=== PATIENT | female | born 1975 | race Caucasian/White ===

== ENCOUNTER 2023-12-20 10:34 | Outpatient (POV) | payer BC, SELFPAY ==
[2023-12-20 10:46] VITALS: BP 138/76; PULSE 123; RESP 18; O2SAT 99; BMI 31.6
--- NOTE | 2023-12-20 10:48 | EXP.PAIN.OV ---
HPI Data of Consult Patient: new to practice Consult date: 12/20/23 Requesting Physician: Radha Castellano APRN Consult Narrative Reason for consult: Low back pain, bilateral hip pain, buttocks pain, mid back pain History of present illness: Ms. Gonzales is a 48 year old female who presents today as a new patient. She is a referral from Derick Myers's office. Today she rates her pain an 8 out of 10. Patient states that all of a sudden in June she was walking when she started to experience worsening low back and bilateral leg pain. She does describe it as a dull aching, throbbing with burning and stinging sensations. She does state it interferes with her ability perform activities of daily living such as cooking and cleaning. Patient states initially she could not sit, stand or walk due to the worsening pain. Patient does state that the leg symptoms did somewhat improve and now the pain is more at her low back and hips and buttocks area. Patient does state that it is fairly constant and gets worse with any increased activity. Patient states that she did go and have imaging done and was referred to Dr. Myers's office. She does state that he was recommending conservative treatment such as injections. Patient denies any prior surgery or physical therapy. Patient does state that she had had some sort of injection in the past but unsure what specifically it was. Patient has tried [id number] medications along with heat and ice and topicals with minimal relief. Patient is currently managed with tramadol and Flexeril and does state that this does take the edge off. Patient does also make mention that occasionally she will have pain between her shoulder blades but it is not always constant. She states this pain will feel like rippling and when that occurs it does make the overall low back and hip pain worse. Patient is interested in any help we may be able to provide.Patient is currently managed with tramadol 50 mg Epifanio has been reviewed and is appropriate. CC: Radha Castellano APRN [facility] Disclaimer: The information contained in this section may have been updated after the patient was seen, as this information can be updated by other users. Medical History (Updated 12/20/23 @ 11:21 by Radha Castellano APRN) HTN (hypertension) GERD (gastroesophageal reflux disease) Fibromyalgia Surgical History (Updated 12/20/23 @ 11:15 by Sania Soriano RN) History of knee replacement procedure of left knee Hx of cholecystectomy H/O: hysterectomy Hx of tonsillectomy Family History (Updated 12/20/23 @ 10:49 by Sania Soriano RN) Other Cancer Hypertension Seizures Social History Smoking Status: Never smoker alcohol intake: never current occupational status: other Travel in the last 8 weeks: None Review of Systems Review of Systems Review of systems:: pertinent systems reviewed and negative unless documented below Review of systems (narrative): Review of Systems: General: No recent weight changes, no fever, no sleep disturbances Respiratory: No cough, no shortness of air, no recurring pulmonary infections Cardiovascular/peripheral vascular: No chest pain, no palpitations, no edema, no shortness of breath Gastrointestinal: No new onset incontinence, normal bowel movements reported Genitourinary: No new onset incontinence Musculoskeletal: Low back pain, bilateral hip pain, buttocks pain Psychiatric: [Normal mood/affect] Neurological: [Denies weakness in extremities], [denies balance issues] Meds Home Medications and Allergies Home Medications ?Medication ?Instructions ?Recorded ?Confirmed ?Type cyclobenzaprine 10 mg tablet 10 mg PO QIDP PRN . 12/20/23 12/20/23 History esomeprazole magnesium 40 mg 40 mg PO BID GERD 12/20/23 12/20/23 History capsule,delayed release famotidine 20 mg tablet 20 mg PO BID GERD 12/20/23 12/20/23 History hydrochlorothiazide 25 mg tablet 25 mg PO DAILYP PRN Fluid 12/20/23 12/20/23 History hydroxyzine HCl 25 mg tablet 25 mg PO HSP PRN Sleep 12/20/23 12/20/23 History loratadine 10 mg tablet 10 mg PO DAILYP PRN ALLERGIES 12/20/23 12/20/23 History losartan 50 mg tablet 50 mg PO BID BLOOD PRESSURE 12/20/23 12/20/23 History metoclopramide HCl 10 mg tablet 10 mg PO Q6H GERD 12/20/23 12/20/23 History metoprolol succinate 100 mg 100 mg PO DAILY BLOOD PRESSURE 12/20/23 12/20/23 History tablet,extended release 24 hr sertraline 50 mg tablet 50 mg PO DAILY MOOD 12/20/23 12/20/23 History tramadol 50 mg tablet 50 mg PO QIDP PRN Pain 12/20/23 12/20/23 History New Prescriptions to Start Prescriptions: Allergies Allergy/AdvReac Type Severity Reaction Status Date / Time acetaminophen AdvReac Verified 12/20/23 11:09 albuterol AdvReac Verified 12/20/23 11:09 fentanyl AdvReac Verified 12/20/23 11:09 hydrocodone AdvReac Verified 12/20/23 11:09 meperidine AdvReac Verified 12/20/23 11:09 morphine AdvReac Verified 12/20/23 11:09 oxycodone AdvReac Verified 12/20/23 11:09 Sulfa (Sulfonamide AdvReac Verified 12/20/23 11:09 Antibiotics) Objective Narrative: Physical Exam: General: Alert and oriented x3, no acute distress, pleasant and cooperative Lungs: Respirations even and unlabored, symmetrical chest expansion Eyes: PERRL Musculoskeletal: Flexion and extension of lumbar [spine] somewhat guarded secondary to pain, [antalgic gait noted] point tenderness along bilateral SIs and bilateral greater trochanteric bursa's with positive bilateral Christiano's, Hermelindo's, Gaenslen's, compression and distraction exam Neurological: Speech clear, no gross sensory deficit Additional findings Additional findings: Lumbar MRI without contrast 06/26/2023 findings: Multiplanar MR imaging of the lumbar spine was performed without contrast. On the sagittal T2 weighted images there is normal curvature and alignment. No acute subluxation or fracture. The conus terminates at the T12-L1. There is disc desiccation and disc space narrowing at L4-L5 and L5-S1. There is high signal in the posterior central annulus at L5-S1 consistent with annular fissure. L1-L2: There is mild annular disc bulging asymmetric to the left. There is mild left neuroforaminal narrowing. L2-L3: There is annular disc bulge asymmetric to the left. There is mild inferior left neuroforaminal narrowing. L3-L4: Mild to moderate annular disc bulge with bilateral neuroforaminal narrowing. L4-L5: There is a moderate annular disc bulge. Facet hypertrophy. Moderate right and severe left neuroforaminal narrowing. There is compression of the exiting nerve root on the left. L5-S1 there is moderate annular disc bulge asymmetric to the left. Moderate right and severe left neuroforaminal narrowing. There is compression of the left exiting nerve root. Assessment and Plan *Assessment and plan (1) Degenerative disc disease, lumbar: Status: Acute Category: Medical Code(s): M51.36 - Other intervertebral disc degeneration, lumbar region (2) Lumbar radiculopathy: Status: Acute Category: Medical Code(s): M54.16 - Radiculopathy, lumbar region (3) Lumbar spinal stenosis: Status: Acute Qualifiers: Neurogenic claudication status: unspecified Qualified Code(s): M48.061 - Spinal stenosis, lumbar region without neurogenic claudication Category: Medical Code(s): M48.061 - Spinal stenosis, lumbar region without neurogenic claudication (4) Lumbar nerve root impingement: Status: Acute Category: Medical Code(s): M54.16 - Radiculopathy, lumbar region (5) Bilateral sacroiliitis: Status: Acute Category: Medical Code(s): M46.1 - Sacroiliitis, not elsewhere classified (6) Greater trochanteric bursitis of both hips: Status: Acute Category: Medical Code(s): M70.61 - Trochanteric bursitis, right hip; M70.62 - Trochanteric bursitis, left hip Plan Patient continues to experience significant pain throughout her low back hips and buttocks with burning and stinging. Patient did have limited range of motion of her lumbar spine with extreme point tenderness along her bilateral SIs and bilateral greater trochanteric bursa's. Patient did have a positive bilateral Christiano's, Hermelindo's, Gaenslen's, compression and distraction exam. I did discuss with the patient that I do believe she would benefit from bilateral SI injections and bursa injections in the future. Risk and benefits were discussed with the patient and she would like to proceed forward with this plan of care. Patient has tried and failed conservative therapy including oral medications, heat and ice, topicals, at home stretching exercise for longer than 6 weeks with no additional changes. Patient is not a surgical candidate at this time. We will submit to insurance for the bilateral SI injections under fluoroscopy. Patient has been instructed to contact the clinic with any concerns before the next appointment. Dr. Jurado has reviewed this note and agrees with this plan of care. This note was dictated using voice recognition software and make contain errors or omissions. All injections are used with Lidocaine or Bupivacaine and Depo Medrol.
== END 2023-12-20 23:59 | disposition home or self-care (01) ==
PROVIDERS: Visit Provider Nurse Practitioner Family
DX: M51.16 Intervertebral disc disorders with radiculopathy, lumbar region (principal); M48.061 Spinal stenosis, lumbar region without neurogenic claudication; M46.1 Sacroiliitis, not elsewhere classified; M70.61 Trochanteric bursitis, right hip; M70.62 Trochanteric bursitis, left hip; Z73.89 Other problems related to life management difficulty; Z79.899 Other long term (current) drug therapy
CPT/HCPCS: 99202; G0463

== ENCOUNTER 2024-01-01 13:13 | Day surgery (SDC) | payer BC, SELFPAY ==
[2024-01-01 13:56] VITALS: BP 115/92; PULSE 120; RESP 16; TEMP 36.2; O2SAT 100; BMI 31.1
[2024-01-01 14:10] VITALS: BP 149/83; PULSE 121; RESP 18; O2SAT 97
[2024-01-01] MEDS: LIDOCAINE 1% 5ML PF VIAL 5 ML (14:10)
[2024-01-01] MEDS: BUPIVACAINE 0.25% 10ML INJ 25 MG IJ (14:10)
[2024-01-01] MEDS: methylPREDNISolone ACETATE 80MG/ML VIAL 80 MG (14:10)
--- NOTE | 2024-01-01 14:13 | P.PCN_ITS ---
Procedure Date: 01/01/24 Time: 14:00 Anesthesiologist:: Mesfin Roblero CRNA Complications:: None Pre-procedure Diagnosis:: Bilateral sacroiliitis. Post-procedure Diagnosis:: Same. Indications for Procedure:: Patient is a very pleasant 48-year-old female comes our clinic today for bilateral sacroiliac joint injections of cortisone. Patient describes low lumbar back pain off the midline bilaterally as constant, dull, aching. Patient reports having difficulty with flexion and extension. Patient reports difficulty transitioning from sitting to standing. Upon examination she has extreme point tenderness over the bilateral sacroiliac joints. She rates her pain 8/10. Procedure Details:: Procedure: Bilateral sacroiliac joint injections under fluoroscopy Informed consent was obtained and the risks and benefits of the procedure were explained to the patient.~ The patient was taken to the procedure room and noninvasive monitors were placed including a noninvasive blood pressure cuff and pulse oximeter.~ The patient was placed prone on the procedure table. Both hips were cleansed using Betadine as a cleansing solution. C-arm fluoroscopy was used to view the right sacroiliac joint.~ The skin and subcutaneous tissues were anesthetized using lidocaine 1.5% and a 25-gauge needle.~ After this, a 22-gauge spinal needle was inserted under fluoroscopic guidance into the inferior aspect of the right sacroiliac joint.~ Omnipaque dye was injected and good spread was seen throughout the joint.~ After this, approximately 5 mL of bupivacaine, 0.25% and Depo-Medrol, 40 mg was incrementally injected into the right sacroiliac joint. We then moved to the left sacroiliac joint.~ The skin and subcutaneous tissues were anesthetized using lidocaine 1.5% and a 25-gauge needle.~ After this, a 22- gauge spinal needle was inserted under fluoroscopic guidance into the inferior aspect of the left sacroiliac joint.~ Omnipaque dye was injected and good spread was seen throughout the joint. After this, approximately 5 mL of bupivacaine, 0.25% and Depo-Medrol, 40 mg was incrementally injected into the left sacroiliac joint.~ The patient tolerated the procedure well with no complications. The patient was observed in the Pain Clinic and then was discharged home neurologically intact. Plan and Disposition:: Patient was discharged without incident.
[2024-01-01 14:16] VITALS: BP 149/83; PULSE 121; RESP 18; O2SAT 97
[2024-01-01 14:18] VITALS: BP 141/87; PULSE 115; RESP 18; O2SAT 100
--- NOTE | 2024-01-01 14:20 | PC.NURSE ---
pt reports she did not take her metoprolol today.
== END 2024-01-01 14:20 | disposition home or self-care (01) ==
PROVIDERS: PCP Nurse Practitioner Family; Visit Provider Nurse Anesthetist, Certified Registered
DX: M46.1 Sacroiliitis, not elsewhere classified (principal)
CPT/HCPCS: 27096; G0260; J1010

== ENCOUNTER 2024-01-30 13:06 | Outpatient (POV) | payer BC, SELFPAY ==
[2024-01-30 13:13] VITALS: BP 166/97; PULSE 115; RESP 16; O2SAT 98; BMI 31.8
--- NOTE | 2024-01-30 13:34 | A.OFFVIS_ITS ---
[facility] Disclaimer: The information contained in this section may have been updated after the patient was seen, as this information can be updated by other users. Medical History (Updated 01/30/24 @ 13:36 by Radha Castellano APRN) HTN (hypertension) GERD (gastroesophageal reflux disease) Fibromyalgia Surgical History History of knee replacement procedure of left knee Hx of cholecystectomy H/O: hysterectomy Hx of tonsillectomy Family History Other Cancer Hypertension Seizures Social History Smoking Status: Never smoker alcohol intake: never current occupational status: other Travel in the last 8 weeks: None PM Subjective & Objective Subjective Subjective:: Patient is a pleasant 48-year-old female who presents today for bilateral SI injections on 01/01/2024. Today she rates her pain a 0 out of 10. She denies any new trauma or injury. She does state that she has had 100% relief following these injections and feels like it is still helping. Patient does state that she has some tenderness and around her neck along the left side and her left buttocks area. Patient feels like she is just sore in both of these spots however it will vary day-to-day. Patient does state that she has been off work at [employer] since around May and is asking if we have any restrictions and whether or not she can go back to work. Patient is managed with tramadol from an outside provider. Her Epifanio is reviewed and is appropriate. Review of Systems: General: No recent weight changes, no fever, no sleep disturbances Respiratory: No cough, no shortness of air, no recurring pulmonary infections Cardiovascular/peripheral vascular: No chest pain, no palpitations, no edema, no shortness of breath Gastrointestinal: No new onset incontinence, normal bowel movements reported Genitourinary: No new onset incontinence Musculoskeletal: Left buttocks pain, left neck pain Psychiatric: [Normal mood/affect] Neurological: [Denies weakness in extremities], [denies balance issues] Pain at rest (0-10 scale): 0 Objective Objective:: Physical Exam: General: Alert and oriented x3, no acute distress, pleasant and cooperative Lungs: Respirations even and unlabored, symmetrical chest expansion Eyes: PERRL Musculoskeletal: Flexion and extension of lumbar [spine] somewhat guarded secondary to pain, [antalgic gait noted] Neurological: Speech clear, no gross sensory deficit Has patient had previous pain injection?: Yes Percent improvement in pain since last injection: 100% Conservative treatment options previously tried: Home exercise plan Length of treatment: Longer than 6 weeks Meds Home Medications and Allergies Home Medications ?Medication ?Instructions ?Recorded ?Confirmed ?Type cyclobenzaprine 10 mg tablet 10 mg PO QIDP PRN . 12/20/23 01/30/24 History esomeprazole magnesium 40 mg 40 mg PO BID GERD 12/20/23 01/30/24 History capsule,delayed release famotidine 20 mg tablet 20 mg PO BID GERD 12/20/23 01/30/24 History hydrochlorothiazide 25 mg tablet 25 mg PO DAILYP PRN Fluid 12/20/23 01/30/24 History hydroxyzine HCl 25 mg tablet 25 mg PO HSP PRN Sleep 12/20/23 01/30/24 History loratadine 10 mg tablet 10 mg PO DAILYP PRN ALLERGIES 12/20/23 01/30/24 History losartan 50 mg tablet 50 mg PO BID BLOOD PRESSURE 12/20/23 01/30/24 History metoclopramide HCl 10 mg tablet 10 mg PO Q6H GERD 12/20/23 01/30/24 History metoprolol succinate 100 mg 100 mg PO DAILY BLOOD PRESSURE 12/20/23 01/30/24 History tablet,extended release 24 hr sertraline 50 mg tablet 50 mg PO DAILY MOOD 12/20/23 01/30/24 History tramadol 50 mg tablet 50 mg PO QIDP PRN Pain 12/20/23 01/30/24 History New Prescriptions to Start Prescriptions: Allergies Allergy/AdvReac Type Severity Reaction Status Date / Time acetaminophen AdvReac Verified 01/01/24 13:57 albuterol AdvReac Verified 01/01/24 13:57 fentanyl AdvReac Verified 01/01/24 13:57 hydrocodone AdvReac Verified 01/01/24 13:57 meperidine AdvReac Verified 01/01/24 13:57 morphine AdvReac Verified 01/01/24 13:57 oxycodone AdvReac Verified 01/01/24 13:57 Sulfa (Sulfonamide AdvReac Verified 01/01/24 13:57 Antibiotics) Assessment and Plan *Assessment and plan (1) Myofascial pain on left side: Status: Acute Category: Medical Code(s): M79.18 - Myalgia, other site Plan Patient has had significant improvement following her SI injections and does not require any additional injection therapy at this time. Patient did have point tenderness along her left cervical paraspinous and trapezius muscles along with her left piriformis muscle. I did discuss with her in future she may benefit from trigger point injections and we will follow-up with this at future visits. Patient was counseled that we do not have any restrictions on her work currently and that she is fine to return to work. I did peer financial counselor the patient that we can give a printout regarding this however since she has also been seeing Dr. Pereira she can always call and also review over with him as well. Patient was tachycardic during today's visit and I did review over the patient's history. Patient states she does have a irregular heart rhythm and denies specifically A- fib however states that she did not take her losartan or metoprolol this morning. Patient states she just forgot. I did peer financial counselor her to make sure to immediately go home and take this medication and if she does still feel like her heart is jumpy that I do recommend her go to the ER or urgent care for evaluation. Patient agrees with this plan of care. Patient will return to clinic in 1 month for reevaluation of symptoms and plan of care. Patient has been instructed to contact the clinic with any concerns before the next appointment. Dr. Jurado has reviewed this note and agrees with this plan of care. This note was dictated using voice recognition software and make contain errors or omissions. All injections are used with Lidocaine or Bupivacaine and Depo Medrol.
== END 2024-01-30 23:59 | disposition home or self-care (01) ==
LOC: SC.PAIN 13:07
PROVIDERS: PCP Nurse Practitioner Family; Visit Provider Nurse Practitioner Family
DX: M79.18 Myalgia, other site (principal)
CPT/HCPCS: 99212; G0463

== ENCOUNTER 2024-02-28 11:04 | Outpatient (POV) | payer BC, SELFPAY ==
[2024-02-28 11:25] VITALS: BP 134/81; PULSE 83; RESP 18; O2SAT 100; BMI 33.7
--- NOTE | 2024-02-28 11:30 | EXP.PAIN.SOA ---
[facility] Disclaimer: The information contained in this section may have been updated after the patient was seen, as this information can be updated by other users. Medical History (Updated 01/30/24 @ 13:36 by Radha Castellano APRN) HTN (hypertension) GERD (gastroesophageal reflux disease) Fibromyalgia Surgical History History of knee replacement procedure of left knee Hx of cholecystectomy H/O: hysterectomy Hx of tonsillectomy Family History Other Cancer Hypertension Seizures Social History Smoking Status: Never smoker alcohol intake: never current occupational status: other Travel in the last 8 weeks: None PM Subjective & Objective Subjective Subjective:: Patient is a pleasant 48-year-old female who presents today for 1 month follow-up. Today she rates her pain a 0 out of 10. Patient denies any new trauma or injury. She states that she is still done well following her SI injections that did provide 100% relief. She states that she only has now intermittent back pain with certain positioning such as bending. Patient does state however she does also have still the left buttocks pain that goes a little into the left leg and that she would like us to take a look at it. Patient is managed with Flexeril and tramadol from her PCP. Her Epifanio has been reviewed and is appropriate. Review of Systems: General: No recent weight changes, no fever, no sleep disturbances Respiratory: No cough, no shortness of air, no recurring pulmonary infections Cardiovascular/peripheral vascular: No chest pain, no palpitations, no edema, no shortness of breath Gastrointestinal: No new onset incontinence, normal bowel movements reported Genitourinary: No new onset incontinence Musculoskeletal: Left buttocks pain Psychiatric: [Normal mood/affect] Neurological: [Denies weakness in extremities], [denies balance issues] Pain at rest (0-10 scale): 0 Objective Objective:: Physical Exam: General: Alert and oriented x3, no acute distress, pleasant and cooperative Lungs: Respirations even and unlabored, symmetrical chest expansion Eyes: PERRL Musculoskeletal: Flexion and extension of lumbar [spine] somewhat guarded secondary to pain, [antalgic gait noted] Neurological: Speech clear, no gross sensory deficit Has patient had previous pain injection?: No Conservative treatment options previously tried: Home exercise plan Length of treatment: Longer than 6 weeks Meds Home Medications and Allergies Home Medications ?Medication ?Instructions ?Recorded ?Confirmed ?Type cyclobenzaprine 10 mg tablet 10 mg PO QIDP PRN . 12/20/23 02/28/24 History esomeprazole magnesium 40 mg 40 mg PO BID GERD 12/20/23 02/28/24 History capsule,delayed release famotidine 20 mg tablet 20 mg PO BID GERD 12/20/23 02/28/24 History hydrochlorothiazide 25 mg tablet 25 mg PO DAILYP PRN Fluid 12/20/23 02/28/24 History hydroxyzine HCl 25 mg tablet 25 mg PO HSP PRN Sleep 12/20/23 02/28/24 History loratadine 10 mg tablet 10 mg PO DAILYP PRN ALLERGIES 12/20/23 02/28/24 History losartan 50 mg tablet 50 mg PO BID BLOOD PRESSURE 12/20/23 02/28/24 History metoclopramide HCl 10 mg tablet 10 mg PO Q6H GERD 12/20/23 02/28/24 History metoprolol succinate 100 mg 100 mg PO DAILY BLOOD PRESSURE 12/20/23 02/28/24 History tablet,extended release 24 hr sertraline 50 mg tablet 50 mg PO DAILY MOOD 12/20/23 02/28/24 History tramadol 50 mg tablet 50 mg PO QIDP PRN Pain 12/20/23 02/28/24 History New Prescriptions to Start Prescriptions: Allergies Allergy/AdvReac Type Severity Reaction Status Date / Time acetaminophen AdvReac Verified 01/01/24 13:57 albuterol AdvReac Verified 01/01/24 13:57 fentanyl AdvReac Verified 01/01/24 13:57 hydrocodone AdvReac Verified 01/01/24 13:57 meperidine AdvReac Verified 01/01/24 13:57 morphine AdvReac Verified 01/01/24 13:57 oxycodone AdvReac Verified 01/01/24 13:57 Sulfa (Sulfonamide AdvReac Verified 01/01/24 13:57 Antibiotics) Assessment and Plan *Assessment and plan (1) Bilateral sacroiliitis: Status: Acute Category: Medical Code(s): M46.1 - Sacroiliitis, not elsewhere classified (2) Greater trochanteric bursitis of both hips: Status: Acute Category: Medical Code(s): M70.61 - Trochanteric bursitis, right hip; M70.62 - Trochanteric bursitis, left hip Plan Patient's left buttocks and hip area looks within normal limits. There is no erythema or knot noted with palpation. I did discuss with patient that I will order the patient a compounded cream to try on this location and follow-up with her in 3 months for reevaluation of symptoms and plan of care. Patient has been instructed to contact the clinic with any concerns before the next appointment. Dr. Jurado has reviewed this note and agrees with this plan of care. This note was dictated using voice recognition software and make contain errors or omissions. All injections are used with Lidocaine or Bupivacaine and Depo Medrol.
== END 2024-02-28 23:59 | disposition home or self-care (01) ==
LOC: SC.PAIN 11:05
PROVIDERS: PCP Nurse Practitioner Family; Visit Provider Nurse Practitioner Family
DX: M46.1 Sacroiliitis, not elsewhere classified (principal); M70.61 Trochanteric bursitis, right hip; M70.62 Trochanteric bursitis, left hip
CPT/HCPCS: 99212; G0463

== ENCOUNTER 2024-05-29 13:20 | Outpatient (POV) | payer MEDICAID, SELFPAY ==
[2024-05-29 14:06] VITALS: BP 158/82; PULSE 100; RESP 16; O2SAT 100
--- NOTE | 2024-05-29 14:52 | A.OFFVIS_ITS ---
[facility] Disclaimer: The information contained in this section may have been updated after the patient was seen, as this information can be updated by other users. Medical History (Updated 05/29/24 @ 14:54 by Radha Castellano APRN) HTN (hypertension) GERD (gastroesophageal reflux disease) Fibromyalgia Surgical History History of knee replacement procedure of left knee Hx of cholecystectomy H/O: hysterectomy Hx of tonsillectomy Family History Other Cancer Hypertension Seizures Social History Smoking Status: Never smoker alcohol intake: never current occupational status: other Travel in the last 8 weeks: None PM Subjective & Objective Subjective Subjective:: Patient is a pleasant 49-year-old female who presents today for follow-up. Today she rates her overall low back and hip pain a 0 out of 10. She does however state that her pain running all across her upper back and shoulder area is an 8 out of 10. Patient denies any new falls or injuries. She does states she feels like it is more spasm-like in nature. Patient states that the pain is not constant but does come and go. Patient is currently managed with Flexeril and tramadol from her primary care however states that she feels like the Flexeril does not really work as well male. She states that the compounded cream we ordered her has done great and that she is requesting refills. Patient does state that about 2 weeks ago she did have pneumonia. She denies any other changes. Patient had SI injections previously that did provide 100% relief. Her Epifanio has been reviewed and is appropriate. Review of Systems: General: No recent weight changes, no fever, no sleep disturbances Respiratory: No cough, no shortness of air, no recurring pulmonary infections Cardiovascular/peripheral vascular: No chest pain, no palpitations, no edema, no shortness of breath Gastrointestinal: No new onset incontinence, normal bowel movements reported Genitourinary: No new onset incontinence Musculoskeletal: Upper back pain, shoulder pain Psychiatric: [Normal mood/affect] Neurological: [Denies weakness in extremities], [denies balance issues] Pain at rest (0-10 scale): 8 Objective Objective:: Physical Exam: General: Alert and oriented x3, no acute distress, pleasant and cooperative Lungs: Respirations even and unlabored, symmetrical chest expansion Eyes: PERRL Musculoskeletal: Flexion and extension of cervical [spine] somewhat guarded secondary to pain, [antalgic gait noted] Neurological: Speech clear, no gross sensory deficit Has patient had previous pain injection?: No Conservative treatment options previously tried: Home exercise plan Length of treatment: Longer than 12 weeks Meds Home Medications and Allergies Home Medications ?Medication ?Instructions ?Recorded ?Confirmed ?Type cyclobenzaprine 10 mg tablet 10 mg PO QIDP PRN . 12/20/23 05/29/24 History esomeprazole magnesium 40 mg 40 mg PO BID GERD 12/20/23 05/29/24 History capsule,delayed release famotidine 20 mg tablet 20 mg PO BID GERD 12/20/23 05/29/24 History hydrochlorothiazide 25 mg tablet 25 mg PO DAILYP PRN Fluid 12/20/23 05/29/24 History hydroxyzine HCl 25 mg tablet 25 mg PO HSP PRN Sleep 12/20/23 05/29/24 History loratadine 10 mg tablet 10 mg PO DAILYP PRN ALLERGIES 12/20/23 05/29/24 History losartan 50 mg tablet 50 mg PO BID BLOOD PRESSURE 12/20/23 05/29/24 History metoclopramide HCl 10 mg tablet 10 mg PO Q6H GERD 12/20/23 05/29/24 History metoprolol succinate 100 mg 100 mg PO DAILY BLOOD PRESSURE 12/20/23 05/29/24 History tablet,extended release 24 hr sertraline 50 mg tablet 50 mg PO DAILY MOOD 12/20/23 05/29/24 History tramadol 50 mg tablet 50 mg PO QIDP PRN Pain 12/20/23 05/29/24 History New Prescriptions to Start Prescriptions: Allergies Allergy/AdvReac Type Severity Reaction Status Date / Time acetaminophen AdvReac Verified 01/01/24 13:57 albuterol AdvReac Verified 01/01/24 13:57 fentanyl AdvReac Verified 01/01/24 13:57 hydrocodone AdvReac Verified 01/01/24 13:57 meperidine AdvReac Verified 01/01/24 13:57 morphine AdvReac Verified 01/01/24 13:57 oxycodone AdvReac Verified 01/01/24 13:57 Sulfa (Sulfonamide AdvReac Verified 01/01/24 13:57 Antibiotics) Assessment and Plan *Assessment and plan (1) Bilateral shoulder pain: Status: Acute Category: Medical Code(s): M25.511 - Pain in right shoulder; M25.512 - Pain in left shoulder (2) Neck pain: Status: Acute Category: Medical Code(s): M54.2 - Cervicalgia Plan I did discuss with the patient that since she does feel like it is more spasm in nature that I will send in a new prescription of baclofen 5 mg 3 times daily as needed and supply a 2-week dose. Patient was counseled to discontinue her Flexeril. I will refill her compounded cream and have the patient return in 2 weeks for reevaluation of symptoms and plan of care. Patient has been instructed to contact the clinic with any concerns before the next appointment. Dr. Jurado has reviewed this note and agrees with this plan of care. This note was dictated using voice recognition software and make contain errors or omissions. All injections are used with Lidocaine, Bupivacaine and Depo Medrol. Occasionally urine drug screen is needed to verify patient's compliance with our office pain contract. This is ordered based off specific treatments related to chronic pain with the potential to abuse certain medications.
== END 2024-05-29 23:59 | disposition home or self-care (01) ==
PROVIDERS: PCP Nurse Practitioner Family; Visit Provider Nurse Practitioner Family
DX: M25.511 Pain in right shoulder (principal); M25.512 Pain in left shoulder; M54.2 Cervicalgia; Z96.652 Presence of left artificial knee joint
CPT/HCPCS: 99212; G0463

== ENCOUNTER 2024-06-12 13:33 | Outpatient (POV) | payer MEDICAID, SELFPAY ==
--- NOTE | 2024-06-12 13:42 | A.OFFVIS_ITS ---
[facility] Disclaimer: The information contained in this section may have been updated after the patient was seen, as this information can be updated by other users. Medical History (Updated 05/29/24 @ 14:54 by Radha Castellano APRN) HTN (hypertension) GERD (gastroesophageal reflux disease) Fibromyalgia Surgical History History of knee replacement procedure of left knee Hx of cholecystectomy H/O: hysterectomy Hx of tonsillectomy Family History Other Cancer Hypertension Seizures Social History Smoking Status: Never smoker alcohol intake: never current occupational status: other Travel in the last 8 weeks: None Have you lived/traveled outside [place] in past 30 days?: No Contact w/someone who lives/traveled outside US past 30 days?: No Exposure to someone with infectious disease in past 14 days?: No Do you have a fever (greater than 100.4 F or 38 C)?: No Have you tested positive for COVID-19: No Exposed to someone with COVID-19 in past 14 days?: No Do you have a sore throat?: No Do you have a cough?: No Do you have any weakness?: No Do you have any diarrhea?: No Are you experiencing any unusual bleeding?: No Do you have any muscle aches/pain?: No Do you have any abdominal pain?: No Are you experiencing loss of taste or smell?: No PM Subjective & Objective Subjective Subjective:: Patient is a pleasant 49-year-old female who presents today for 2-week follow- up. Today she rates her pain a 7 out of 10. Patient denies any new falls or injuries. She states all of her pain today is more so the low back but is causing significant leg symptoms all the way down with numbness and tingling. She states the pain is constant and does interfere with her ability to perform activities of daily living such as cooking and cleaning. She is interested in additional injection therapy. She does also make mention on the way up here today, she all of a sudden got very dizzy and sweaty and clammy. She states she had to roll down the window and then stopping yet doing so chips before arriving today. She states that it is better however she still feels a little bit stomach upset. She denies being diabetic so she is not really sure what going on. She states that she has been tried on a new medicine of trazodone from her primary care. Patient had SI injections previously that did provide 100% relief. Patient was prescribed her last visit baclofen 5 mg 3 times daily for muscle spasms. She states that these did help and is requesting refills. Patient is also prescribed compounded cream. She is prescribed tramadol from her PCP. She denies any side effects from these medications. Her Epifanio has been reviewed and is appropriate. Review of Systems: General: No recent weight changes, no fever, no sleep disturbances Respiratory: No cough, no shortness of air, no recurring pulmonary infections Cardiovascular/peripheral vascular: No chest pain, no palpitations, no edema, no shortness of breath Gastrointestinal: No new onset incontinence, normal bowel movements reported Genitourinary: No new onset incontinence Musculoskeletal: Low back pain, bilateral leg pain Psychiatric: [Normal mood/affect] Neurological: [Denies weakness in extremities], [denies balance issues] Pain at rest (0-10 scale): 7 Objective Objective:: Physical Exam: General: Alert and oriented x3, no acute distress, pleasant and cooperative Lungs: Respirations even and unlabored, symmetrical chest expansion Eyes: PERRL Musculoskeletal: Flexion and extension of lumbar [spine] somewhat guarded secondary to pain, [antalgic gait noted] positive leg raise: Extreme point tenderness at the very lower lumbar spine approximate L5-S1 Neurological: Speech clear, no gross sensory deficit Has patient had previous pain injection?: No Conservative treatment options previously tried: Home exercise plan Length of treatment: Longer than 12 weeks Meds Home Medications and Allergies Home Medications ?Medication ?Instructions ?Recorded ?Confirmed ?Type cyclobenzaprine 10 mg tablet 10 mg PO QIDP PRN . 12/20/23 05/29/24 History esomeprazole magnesium 40 mg 40 mg PO BID GERD 12/20/23 05/29/24 History capsule,delayed release famotidine 20 mg tablet 20 mg PO BID GERD 12/20/23 05/29/24 History hydrochlorothiazide 25 mg tablet 25 mg PO DAILYP PRN Fluid 12/20/23 05/29/24 History hydroxyzine HCl 25 mg tablet 25 mg PO HSP PRN Sleep 12/20/23 05/29/24 History loratadine 10 mg tablet 10 mg PO DAILYP PRN ALLERGIES 12/20/23 05/29/24 History losartan 50 mg tablet 50 mg PO BID BLOOD PRESSURE 12/20/23 05/29/24 History metoclopramide HCl 10 mg tablet 10 mg PO Q6H GERD 12/20/23 05/29/24 History metoprolol succinate 100 mg 100 mg PO DAILY BLOOD PRESSURE 12/20/23 05/29/24 History tablet,extended release 24 hr sertraline 50 mg tablet 50 mg PO DAILY MOOD 12/20/23 05/29/24 History tramadol 50 mg tablet 50 mg PO QIDP PRN Pain 12/20/23 05/29/24 History baclofen 5 mg tablet 5 mg PO TID #42 tabs 05/29/24 Rx New Prescriptions to Start Prescriptions: Allergies Allergy/AdvReac Type Severity Reaction Status Date / Time acetaminophen AdvReac Verified 01/01/24 13:57 albuterol AdvReac Verified 01/01/24 13:57 fentanyl AdvReac Verified 01/01/24 13:57 hydrocodone AdvReac Verified 01/01/24 13:57 meperidine AdvReac Verified 01/01/24 13:57 morphine AdvReac Verified 01/01/24 13:57 oxycodone AdvReac Verified 01/01/24 13:57 Sulfa (Sulfonamide AdvReac Verified 01/01/24 13:57 Antibiotics) Assessment and Plan *Assessment and plan (1) Greater trochanteric bursitis of both hips: Status: Acute Category: Medical Code(s): M70.61 - Trochanteric bursitis, right hip; M70.62 - Trochanteric bursitis, left hip (2) Bilateral sacroiliitis: Status: Acute Category: Medical Code(s): M46.1 - Sacroiliitis, not elsewhere classified (3) Degenerative disc disease, lumbar: Status: Acute Category: Medical Code(s): M51.369 - Other intervertebral disc degeneration, lumbar region without mention of lumbar back pain or lower extremity pain (4) Lumbar radiculopathy: Status: Acute Category: Medical Code(s): M54.16 - Radiculopathy, lumbar region Plan Patient is experiencing worsening pain in her low back with numbness and tingling into her lower extremities. Patient did have limited range of motion of her lumbar spine with a positive leg raise. I did discuss with patient that I do believe they would benefit from a lumbar epidural steroid injection. Risk and benefits were discussed with patient and the patient would like to proceed forward with this plan of care. Patient is not on any blood thinner. Patient has tried and failed conservative therapy including continued at home stretching exercise for longer than 12 weeks between injections. I will refill the patient's baclofen and provide a 3-month supply. Patient's vitals were all stable during today's visit have counseled her to keep us posted if she has any additional issues like she did on her ride up today. Patient agrees with this plan of care. We will schedule the patient for an LESI L5-S1 under fluoroscopy. Patient has been instructed to contact the clinic with any concerns before the next appointment. Dr. Jurado has reviewed this note and agrees with this plan of care. This note was dictated using voice recognition software and make contain errors or omissions. All injections are used with Lidocaine, Bupivacaine and Depo Medrol. Occasionally urine drug screen is needed to verify patient's compliance with our office pain contract. This is ordered based off specific treatments related to chronic pain with the potential to abuse certain medications. Patient has been instructed to contact the clinic with any concerns before the next appointment. Dr. Jurado has reviewed this note and agrees with this plan of care. This note was dictated using voice recognition software and make contain errors or omissions. All injections are used with Lidocaine, Bupivacaine and Depo Medrol. Occasionally urine drug screen is needed to verify patient's compliance with our office pain contract. This is ordered based off specific treatments related to chronic pain with the potential to abuse certain medications.
[2024-06-12 15:03] VITALS: BP 143/93; PULSE 104; RESP 18; O2SAT 99; BMI 30.2
== END 2024-06-12 23:59 | disposition home or self-care (01) ==
PROVIDERS: PCP Nurse Practitioner Family; Visit Provider Nurse Practitioner Family
DX: M70.61 Trochanteric bursitis, right hip (principal); M70.62 Trochanteric bursitis, left hip; M46.1 Sacroiliitis, not elsewhere classified; M51.16 Intervertebral disc disorders with radiculopathy, lumbar region; Z96.652 Presence of left artificial knee joint; Z73.89 Other problems related to life management difficulty
CPT/HCPCS: 99212; G0463

== ENCOUNTER 2024-07-01 13:24 | Day surgery (SDC) | payer MEDICAID, SELFPAY ==
[2024-07-01 13:29] VITALS: BP 150/87; PULSE 78; RESP 16; O2SAT 99; BMI 30.7
[2024-07-01] MEDS: methylPREDNISolone ACETATE 80MG/ML VIAL 80 MG (13:44)
[2024-07-01 13:46] VITALS: BP 154/84; PULSE 86; RESP 18; O2SAT 94
[2024-07-01 13:48] VITALS: BP 154/84; PULSE 86; RESP 18; O2SAT 94
--- NOTE | 2024-07-01 13:50 | EXP.PAIN.PRO ---
Procedure Date: 07/01/24 Time: 13:40 Anesthesiologist:: Mesfin Roblero CRNA Complications:: None Pre-procedure Diagnosis:: Degenerative disc lumbar spine multilevels. Lumbar radiculopathy. Post-procedure Diagnosis:: Same. Indications for Procedure:: Patient is a very pleasant 49-year-old female who comes our clinic today for lumbar epidural steroid injection. Patient describes low lumbar back pain as constant, dull, aching. She also reports bilateral hip and leg radicular symptoms. She rates her pain 7/10. Procedure Details:: Procedure: Lumbar epidural steroid injection under fluoroscopy Informed consent was obtained and the risks and benefits of the procedure were explained to the patient. The patient was taken to the procedure room and noninvasive monitors placed, including noninvasive blood pressure cuff and pulse oximeter. The back was viewed using C-arm Fluoroscopy and prepped using Chloraprep as a cleansing solution and the L5-S1 interspace was palpated. Skin and subcutaneous tissues were anesthetized using lidocaine 1.5% and a 25-gauge needle. After this, an 18-gauge Touhy epidural needle was placed into the L5-S1 interspace and advanced using fluoroscopic guidance and loss of resistance to air until the epidural space was encountered. After confirmation of needle placement in the epidural space, with dye, a solution containing normal saline, 3 mL and Depo-Medrol 80 mg were incrementally injected into the lumbar epidural space. The patient tolerated the procedure well with no complications. The patient was observed in the Pain Clinic and then discharged home neurologically intact. Plan and Disposition:: Patient was discharged without incident.
[2024-07-01 14:00] VITALS: BP 154/85; PULSE 72; RESP 16; O2SAT 99
== END 2024-07-01 14:00 | disposition home or self-care (01) ==
PROVIDERS: PCP Nurse Practitioner Family; Visit Provider Nurse Anesthetist, Certified Registered
DX: M51.16 Intervertebral disc disorders with radiculopathy, lumbar region (principal)
CPT/HCPCS: 62323; J1010

== ENCOUNTER 2024-07-18 13:29 | Outpatient (POV) | payer MEDICAID, SELFPAY ==
--- NOTE | 2024-07-18 13:31 | A.OFFVIS_ITS ---
[facility] Disclaimer: The information contained in this section may have been updated after the patient was seen, as this information can be updated by other users. Medical History HTN (hypertension) GERD (gastroesophageal reflux disease) Fibromyalgia Surgical History History of knee replacement procedure of left knee Hx of cholecystectomy H/O: hysterectomy Hx of tonsillectomy Family History Other Cancer Hypertension Seizures Social History Smoking Status: Never smoker alcohol intake: never current occupational status: other Travel in the last 8 weeks: None Have you lived/traveled outside US in past 30 days?: No Contact w/someone who lives/traveled outside US past 30 days?: No Exposure to someone with infectious disease in past 14 days?: No Do you have a fever (greater than 100.4 F or 38 C)?: No Have you tested positive for COVID-19: No Exposed to someone with COVID-19 in past 14 days?: No Do you have a sore throat?: No Do you have a cough?: No Do you have any weakness?: No Do you have any diarrhea?: No Are you experiencing any unusual bleeding?: No Do you have any muscle aches/pain?: No Do you have any abdominal pain?: No Are you experiencing loss of taste or smell?: No PM Subjective & Objective Subjective Subjective:: Patient is a pleasant 79-year-old female who presents today for follow-up of lumbar epidural steroid injection L5-S1 on 07/01/2024. Today she rates her pain a 0 out of 10 overall. She states she has had at least 60% improvement following this injection and feels like it is still helping. Patient does state that she will still occasionally have some pain with certain movements such as bending. Patient does also make mention that she still has the very tender spot along her left buttocks area and does want our office to take a look at it. Patient does also make mention that recently she did have to go to the ER for migraine and that they did do some imaging. She states that it did eventually get better. Her Epifanio has been reviewed and is appropriate. Review of Systems: General: No recent weight changes, no fever, no sleep disturbances Respiratory: No cough, no shortness of air, no recurring pulmonary infections Cardiovascular/peripheral vascular: No chest pain, no palpitations, no edema, no shortness of breath Gastrointestinal: No new onset incontinence, normal bowel movements reported Genitourinary: No new onset incontinence Musculoskeletal: Neck pain, left buttocks pain Psychiatric: [Normal mood/affect] Neurological: [Denies weakness in extremities], [denies balance issues] Pain at rest (0-10 scale): 0 Objective Objective:: Physical Exam: General: Alert and oriented x3, no acute distress, pleasant and cooperative Lungs: Respirations even and unlabored, symmetrical chest expansion Eyes: PERRL Musculoskeletal: Flexion and extension of lumbar [spine] somewhat guarded secondary to pain, [antalgic gait noted] Neurological: Speech clear, no gross sensory deficit Has patient had previous pain injection?: Yes Percent improvement in pain since last injection: 60% Conservative treatment options previously tried: Home exercise plan Length of treatment: Longer than 6 weeks Meds Home Medications and Allergies Home Medications ?Medication ?Instructions ?Recorded ?Confirmed ?Type cyclobenzaprine 10 mg tablet 10 mg PO QIDP PRN . 12/20/23 07/01/24 History esomeprazole magnesium 40 mg 40 mg PO BID GERD 12/20/23 07/01/24 History capsule,delayed release famotidine 20 mg tablet 20 mg PO BID GERD 12/20/23 07/01/24 History hydrochlorothiazide 25 mg tablet 25 mg PO DAILYP PRN Fluid 12/20/23 07/01/24 History hydroxyzine HCl 25 mg tablet 25 mg PO HSP PRN Sleep 12/20/23 07/01/24 History loratadine 10 mg tablet 10 mg PO DAILYP PRN ALLERGIES 12/20/23 07/01/24 History losartan 50 mg tablet 50 mg PO BID BLOOD PRESSURE 12/20/23 07/01/24 History metoclopramide HCl 10 mg tablet 10 mg PO Q6H GERD 12/20/23 07/01/24 History metoprolol succinate 100 mg 100 mg PO DAILY BLOOD PRESSURE 12/20/23 07/01/24 History tablet,extended release 24 hr sertraline 50 mg tablet 50 mg PO DAILY MOOD 12/20/23 07/01/24 History tramadol 50 mg tablet 50 mg PO QIDP PRN Pain 12/20/23 07/01/24 History baclofen 5 mg tablet 5 mg PO TID #90 tabs 06/12/24 07/01/24 Rx New Prescriptions to Start Prescriptions: Allergies Allergy/AdvReac Type Severity Reaction Status Date / Time acetaminophen AdvReac Verified 01/01/24 13:57 albuterol AdvReac Verified 01/01/24 13:57 fentanyl AdvReac Verified 01/01/24 13:57 hydrocodone AdvReac Verified 01/01/24 13:57 meperidine AdvReac Verified 01/01/24 13:57 morphine AdvReac Verified 01/01/24 13:57 oxycodone AdvReac Verified 01/01/24 13:57 Sulfa (Sulfonamide AdvReac Verified 01/01/24 13:57 Antibiotics) Assessment and Plan *Assessment and plan (1) Neck pain: Status: Acute Category: Medical Code(s): M54.2 - Cervicalgia (2) Bilateral shoulder pain: Status: Acute Category: Medical Code(s): M25.511 - Pain in right shoulder; M25.512 - Pain in left shoulder (3) Myofascial pain on left side: Status: Acute Category: Medical Code(s): M79.18 - Myalgia, other site (4) Lumbar nerve root impingement: Status: Acute Category: Medical Code(s): M54.16 - Radiculopathy, lumbar region (5) Lumbar spinal stenosis: Status: Acute Qualifiers: Neurogenic claudication status: unspecified Qualified Code(s): M48.061 - Spinal stenosis, lumbar region without neurogenic claudication Category: Medical Code(s): M48.061 - Spinal stenosis, lumbar region without neurogenic claudication (6) Degenerative disc disease, lumbar: Status: Acute Category: Medical Code(s): M51.369 - Other intervertebral disc degeneration, lumbar region without mention of lumbar back pain or lower extremity pain (7) Lumbar radiculopathy: Status: Acute Category: Medical Code(s): M54.16 - Radiculopathy, lumbar region Plan Patient has had significant improvement following her lumbar epidural and does not require any additional injection therapy at this time. I did look at the spot on her left buttocks and there is no discoloration or knot palpable during today's visit. I did discuss with her to keep monitoring it and to also discuss with her primary care. Patient did have increased migraines and states this is a common occurrence. I did discuss with her regarding referral to neurology. Patient would like to proceed forward with this plan of care. We will send a referral to Dr. Wolfe's office and follow-up with her in 6 weeks for reevaluation of symptoms and plan of care. Patient has been instructed to contact the clinic with any concerns before the next appointment. Dr. Jurado has reviewed this note and agrees with this plan of care. This note was dictated using voice recognition software and make contain errors or omissions. All injections are used with Lidocaine, Bupivacaine and Depo Medrol. Occasionally urine drug screen is needed to verify patient's compliance with our office pain contract. This is ordered based off specific treatments related to chronic pain with the potential to abuse certain medications.
[2024-07-18 13:53] VITALS: BP 152/114; BP 157/94; PULSE 82; RESP 14; O2SAT 98; BMI 30.5
== END 2024-07-18 23:59 | disposition home or self-care (01) ==
LOC: SC.PAIN 13:30
PROVIDERS: Visit Provider Nurse Practitioner Family
DX: M54.2 Cervicalgia (principal); M25.511 Pain in right shoulder; M25.512 Pain in left shoulder; M79.18 Myalgia, other site; M48.061 Spinal stenosis, lumbar region without neurogenic claudication; M51.16 Intervertebral disc disorders with radiculopathy, lumbar region; Z96.652 Presence of left artificial knee joint
CPT/HCPCS: 99212; G0463

== ENCOUNTER 2024-09-10 15:24 | Outpatient (POV) | payer MEDICAID, SELFPAY ==
--- OUTSIDE RECORDS SUMMARY | 2024-09-10 15:28 | XMS_ITS | Data Portability ---
Author Organization [place] - [facility] Address [address] [place] [address] Care Team Providers Care House Father Name Role Phone MONICA LANDRY Primary Care Provider MONICA LANDRY Referring Provider [phone] Assessment No assessment recorded. Plan of Treatment Reminders Order Date Submit Date Provider Last Modified By Organization Details Last Modified Time Details Appointments Establish ed Visit 15 min 2024 02:30P M GUZMAN ZULETA NP Not available Not available Not available Lab None recorded. Referral pain managemen t referral 2022 023 [email or web address] Not available 01/11/2023 07:28:25 Procedures polysomno graphy, diagnosti c (PROC) - In lab sleep study 2022 023 [email or web address] Nate (Centralized Scheduling), [place], [address], 06/05/2023 08:37:58 Surgeries None recorded. Imaging MRI, temporoma ndibular joint(s), w/o contrast 2022 023 Nate (Centralized Scheduling), [place], [address], 11/29/2022 12:59:04 Medication Orders None recorded. Patient TargetsNo targets recorded. Patient Instructions Encounter Date Encounter Id Patient Instructions Last Modified By Organization Details Last Modified Time 11/16/2022 [id number] I have personall y reviewed the data obtained and entered from the scribe, medical secretary receptionist or nurse for this patient for this patient encounter. discussed with patient. 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 Patient has multiple sensitivities 2 different anti-inflammatory agents and states cannot take steroids. Make referral to Pain Management Clinic. Also MRI of jaw joint. Patient to have plain film of mandible Not available 11/16/2022 09:28:14 02/05/2023 [id number] Weight loss. Giv en her home sleep study is negative for sleep apnea and her history and physical exam is consistent with sleep apnea, recommend overnight full in-lab polysomnography study. This was ordered but not done yet. Follow up with ENT for TMJ and hoarseness. [email or web address] Not available 02/05/2023 12:05:43 02/15/2023 [id number] I have personall y reviewed the data obtained and entered from the scribe, medical secretary receptionist or nurse for this patient for this patient encounter. Discussed with patient. Plan to proceed with flexible laryngoscopy in follow-up appointment in 2 weeks, to allow improvement of TMJ Not available 02/15/2023 13:55:42 02/27/2023 [id number] I have personall y reviewed the data obtained and entered from the scribe, medical secretary receptionist or nurse for this patient for this patient encounter. Discussed with the patient. Dysphonia related to underlying gastroesophageal reflux disease. Patient to follow-up with GI. Follow-up as needed. Not available 02/27/2023 13:33:15 Reason for Referral Pain Management Referral for Pain of temporomandibular joint Referring Physician: Deacon Queen, Otolaryngology, Encounter Date: 11/16/2022 Results Created Date Observation Date Name Description Value Unit Range Abnormal Flag Note LastModifiedBy Organization Detail LastModifiedTime 07/05/19 24 07/05/2023 PT (PROT HROMB IN TIME) W/INR PT w/INR <9.6 secon ds 9.9-11 .7 low Not Available [facility] (Lab) [address] [place] [address] , [place] Pfeiffer, [address], 07/05/2023 16:41:17 07/05/19 24 07/05/2023 PT (PROT HROMB IN TIME) W/INR INR 0.9 0.9-1. 1 Not Available [facility] (Lab) [address] [place], [address], 07/05/2023 16:41:17 07/05/19 24 07/05/2023 PTT (APTT ) APTT 22.7 secon ds 20-30 Not Available [facility] (Lab) [address] [place], [address], 07/05/2023 16:43:31 07/05/19 24 07/05/2023 COMPR EHENS ANGELO METAB OLIC PANEL sodium 139 mmol/ L 136-14 5 Not Available [facility] (Lab) [address] [place], [address], 07/05/2023 16:44:37 07/05/19 24 07/05/2023 COMPR EHENS ANGELO METAB OLIC PANEL potassium 3.5 mmol/ L 3.5-5. 1 Not Available [facility] (Lab) [address] [place], [address], 07/05/2023 16:44:37 07/05/19 24 07/05/2023 COMPR EHENS ANGELO METAB OLIC PANEL chloride 100 mmol/ L 98.0-1 07.0 Not Available [facility] (Lab) [address] [place], [address], 07/05/2023 16:44:37 07/05/19 24 07/05/2023 COMPR EHENS ANGELO METAB OLIC PANEL total CO2 31 mmol/ L 21-32 Not Available [facility] (Lab) [address] [place], [address], 07/05/2023 16:44:37 07/05/19 24 07/05/2023 COMPR EHENS ANGELO METAB OLIC PANEL anion gap 11.5 mmol/ L 5.0-15 .0 Not Available [facility] (Lab) [address] [place], [address], 07/05/2023 16:44:37 07/05/19 24 07/05/2023 COMPR EHENS ANGELO METAB OLIC PANEL glucose 110 mg/dL 70-120 Not Available [facility] (Lab) [address] [place], [address], 07/05/2023 16:44:37 07/05/19 24 07/05/2023 COMPR EHENS ANGELO METAB OLIC PANEL BUN 16 mg/dL 7-18 Not Available [facility] (Lab) [address] [place], [address], 07/05/2023 16:44:37 07/05/19 24 07/05/2023 COMPR EHENS ANGELO METAB OLIC PANEL creatinine 0.9 mg/dL 0.6-1. 0 Not Available [facility] (Lab) [address] [place], [address], 07/05/2023 16:44:37 07/05/19 24 07/05/2023 COMPR EHENS ANGELO METAB OLIC PANEL BUN/creatini ne ratio 17.8 ratio 9-21 Not Available [facility] (Lab) [address] [place], [address], 07/05/2023 16:44:37 07/05/19 24 07/05/2023 COMPR EHENS ANGELO METAB OLIC PANEL estimated glom filtration rate >60 mL/mi n 60.0- Not Available [facility] (Lab) [address] [place], [address], 07/05/2023 16:44:37 07/05/19 24 07/05/2023 COMPR EHENS ANGELO METAB OLIC PANEL calcium 10.1 mg/dL 8.6-9. 8 high Not Available [facility] (Lab) [address] [place], [address], 07/05/2023 16:44:37 07/05/19 24 07/05/2023 COMPR EHENS ANGELO METAB OLIC PANEL bilirubin, total 0.2 mg/dL 0.2-1. 0 USE OF THIS ASSAY IS NOT RECOM XIANG D FOR PATIE NTS UNDER GOING TREAT MENT WITH ELTRO MBOPA G DUE TO THE POTEN TIAL FOR FALSE LY ELEVA TAVO RESUL TS. Not Available [facility] (Lab) [address] [place], [address], 07/05/2023 16:44:37 07/05/19 24 07/05/2023 COMPR EHENS ANGELO METAB OLIC PANEL AST (SGOT) 11 IU/L 15-37 low Not Available [facility] (Lab) [address] [place], [address], 07/05/2023 16:44:37 07/05/19 24 07/05/2023 COMPR EHENS ANGELO METAB OLIC PANEL ALT (SGPT) 21 IU/L 12-78 Not Available [facility] (Lab) [address] [place], [address], 07/05/2023 16:44:37 07/05/19 24 07/05/2023 COMPR EHENS ANGELO METAB OLIC PANEL alk phos 108 IU/L 54-369 Not Available [facility] (Lab) [address] [place], [address], 07/05/2023 16:44:37 07/05/19 24 07/05/2023 COMPR EHENS ANGELO METAB OLIC PANEL total protein 8.1 g/dL 6.4-8. 2 Not Available [facility] (Lab) [address] [place], [address], 07/05/2023 16:44:37 07/05/19 24 07/05/2023 COMPR EHENS ANGELO METAB OLIC PANEL albumin 3.8 g/dL 3.4-5. 0 Not Available [facility] (Lab) [address] [place], [address], 07/05/2023 16:44:37 07/05/19 24 07/05/2023 COMPR EHENS ANGELO METAB OLIC PANEL globulin 4.3 g/dL 1.3-3. 5 high Not Available [facility] (Lab) [address] [place], [address], 07/05/2023 16:44:37 07/05/19 24 07/05/2023 COMPR EHENS ANGELO METAB OLIC PANEL alb/glob ratio 0.9 ratio 1.0-3. 9 low Not Available [facility] (Lab) [address] [place], [address], 07/05/2023 16:44:37 07/05/19 24 07/05/2023 COMPR EHENS ANGELO METAB OLIC PANEL osmolality, calculated 279 mOsm/ kg 272-29 5 Not Available [facility] (Lab) [address] [place], [address], 07/05/2023 16:44:37 07/05/19 24 07/05/2023 TROPO SONIA I troponin I, high sensitive <4 pg/mL -<52 Not Available [facility] (Lab) [address] [place], [address], 07/05/2023 16:44:38 07/05/19 24 07/05/2023 TROPO SONIA I initial? YES yes/no /unk Not Available [facility] (Lab) [address] [place], [address], 07/05/2023 16:44:38 07/05/19 24 07/05/2023 LIPAS E lipase 47 U/L 16-77 Not Available [facility] (Lab) [address] [place], [address], 07/05/2023 16:44:39 07/05/19 24 07/05/2023 CBC WITH AUTO DIFF WBC 21.4 10 4.5-11 .5 high Not Available [facility] (Lab) [address] [place], [address], 07/05/2023 17:04:36 07/05/19 24 07/05/2023 CBC WITH AUTO DIFF RBC 4.74 10 4.00-5 .40 Not Available [facility] (Lab) [address] [place], [address], 07/05/2023 17:04:36 07/05/19 24 07/05/2023 CBC WITH AUTO DIFF hemoglobin 14.9 g/dL 12.0-1 5.0 Not Available [facility] (Lab) [address] [place], [address], 07/05/2023 17:04:36 07/05/19 24 07/05/2023 CBC WITH AUTO DIFF hematocrit 45.9 % 35.0-4 9.0 Not Available [facility] (Lab) [address] [place], [address], 07/05/2023 17:04:36 07/05/19 24 07/05/2023 CBC WITH AUTO DIFF MCV 96.8 fL 80-100 Not Available [facility] (Lab) [address] [place], [address], 07/05/2023 17:04:36 07/05/19 24 07/05/2023 CBC WITH AUTO DIFF MCH 31.4 pg 26-32 Not Available [facility] (Lab) [address] [place], [address], 07/05/2023 17:04:36 07/05/19 24 07/05/2023 CBC WITH AUTO DIFF MCHC 32.5 g/dL 32-36 Not Available [facility] (Lab) [address] [place], [address], 07/05/2023 17:04:36 07/05/19 24 07/05/2023 CBC WITH AUTO DIFF RDW 14.1 % 11.5-1 4.5 Not Available [facility] (Lab) [address] [place], [address], 07/05/2023 17:04:36 07/05/19 24 07/05/2023 CBC WITH AUTO DIFF platelet count 420 10 150-45 0 Not Available [facility] (Lab) [address] [place], [address], 07/05/2023 17:04:36 07/05/19 24 07/05/2023 CBC WITH AUTO DIFF mean platelet volume 10.4 fL 6.8-10 .2 high Not Available [facility] (Lab) [address] [place], [address], 07/05/2023 17:04:36 07/05/19 24 07/05/2023 CBC WITH AUTO DIFF manual differential PERFOR MED Not Available [facility] (Lab) [address] [place], [address], 07/05/2023 17:04:36 07/05/19 24 07/05/2023 CBC WITH AUTO DIFF platelet estimate ADEQUA TE Not Available [facility] (Lab) [address] [place], [address], 07/05/2023 17:04:36 07/05/19 24 07/05/2023 CBC WITH AUTO DIFF RBC morphology NORMAL Not Available [facility] (Lab) [address] [place], [address], 07/05/2023 17:04:36 07/05/19 24 07/05/2023 CBC WITH AUTO DIFF ne% 73.0 % 50-70 high Not Available [facility] (Lab) [address] [place], [address], 07/05/2023 17:04:36 07/05/19 24 07/05/2023 CBC WITH AUTO DIFF lymphs 16.9 % 18-42 low Not Available [facility] (Lab) [address] [place], [address], 07/05/2023 17:04:36 07/05/19 24 07/05/2023 CBC WITH AUTO DIFF MO% 7.8 % 2-11 Not Available [facility] (Lab) [address] [place], [address], 07/05/2023 17:04:36 07/05/19 24 07/05/2023 CBC WITH AUTO DIFF eo% 2.2 % 1-3 Not Available [facility] (Lab) [address] [place], [address], 07/05/2023 17:04:36 07/05/19 24 07/05/2023 CBC WITH AUTO DIFF ba% 0.1 % 0.0-2. 0 Not Available [facility] (Lab) [address] [place], [address], 07/05/2023 17:04:36 07/05/19 24 07/05/2023 CBC WITH AUTO DIFF neutrophils (absolute) 15.6 K/uL 2.0-6. 9 high Not Available [facility] (Lab) [address] [place], [address], 07/05/2023 17:04:36 07/05/19 24 07/05/2023 CBC WITH AUTO DIFF lymphocytes (absolute) 3.6 K/uL 0.6-3. 4 high Not Available [facility] (Lab) [address] [place], [address], 07/05/2023 17:04:36 07/05/19 24 07/05/2023 CBC WITH AUTO DIFF monocytes (absolute) 1.7 K/uL 0.0-0. 9 high Not Available [facility] (Lab) [address] [place], [address], 07/05/2023 17:04:36 07/05/19 24 07/05/2023 CBC WITH AUTO DIFF eosinophils (absolute) 0.5 K/uL 0.0-0. 7 Not Available [facility] (Lab) [address] [place], [address], 07/05/2023 17:04:36 07/05/19 24 07/05/2023 CBC WITH AUTO DIFF basophils (absolute) 0.0 K/uL 0.0-0. 2 Not Available [facility] (Lab) [address] [place], [address], 07/05/2023 17:04:36 07/05/19 24 07/05/2023 CBC WITH AUTO DIFF segmented neutrophil 74 % 40-75 Not Available [facility] (Lab) [address] [place], [address], 07/05/2023 17:04:36 07/05/19 24 07/05/2023 CBC WITH AUTO DIFF lymphocyte 17 % Not Available [facility] (Lab) [address] [place], [address], 07/05/2023 17:04:36 07/05/19 24 07/05/2023 CBC WITH AUTO DIFF monocyte 7 % 0-12 Not Available [facility] (Lab) [address] [place], [address], 07/05/2023 17:04:36 07/05/19 24 07/05/2023 CBC WITH AUTO DIFF eosinophil 2 % Not Available [facility] (Lab) [address] [place], [address], 07/05/2023 17:04:36 07/05/19 24 07/05/2023 OCCUL T BLOOD fecal occult blood,single spec POSITI VE negati ve delta Not Available [facility] (Lab) [address] [place], [address], 07/05/2023 17:42:47 07/05/19 24 07/05/2023 OCCUL T BLOOD occult blood internal control PASS PASS Not Available [facility] (Lab) [address] [place], [address], 07/05/2023 17:42:47 07/05/19 24 07/05/2023 UA-CU LTURE IF INDIC ATED color YELLOW yellow Not Available [facility] (Lab) [address] [place], [address], 07/05/2023 17:49:05 07/05/19 24 07/05/2023 UA-CU LTURE IF INDIC ATED clarity CLEAR clear Not Available [facility] (Lab) [address] [place], [address], 07/05/2023 17:49:05 07/05/19 24 07/05/2023 UA-CU LTURE IF INDIC ATED glucose NEGATI VE negati ve Not Available [facility] (Lab) [address] [place], [address], 07/05/2023 17:49:05 07/05/19 24 07/05/2023 UA-CU LTURE IF INDIC ATED bilirubin NEGATI VE negati ve Not Available [facility] (Lab) [address] [place], [address], 07/05/2023 17:49:05 07/05/19 24 07/05/2023 UA-CU LTURE IF INDIC ATED ketones NEGATI VE negati ve Not Available [facility] (Lab) [address] [place], [address], 07/05/2023 17:49:05 07/05/19 24 07/05/2023 UA-CU LTURE IF INDIC ATED specific gravity 1.015 1.00 - >=1.03 0 Not Available [facility] (Lab) [address] [place], [address], 07/05/2023 17:49:05 07/05/19 24 07/05/2023 UA-CU LTURE IF INDIC ATED blood NEGATI VE negati ve Not Available [facility] (Lab) [address] [place], [address], 07/05/2023 17:49:05 07/05/19 24 07/05/2023 UA-CU LTURE IF INDIC ATED pH 6.0 5 - 8 Not Available [facility] (Lab) [address] [place], [address], 07/05/2023 17:49:05 07/05/19 24 07/05/2023 UA-CU LTURE IF INDIC ATED protein NEGATI VE negati ve Not Available [facility] (Lab) [address] [place], [address], 07/05/2023 17:49:05 07/05/19 24 07/05/2023 UA-CU LTURE IF INDIC ATED urobilinogen 0.2 mg/dL 0.2 - 1.0 Not Available [facility] (Lab) [address] [place], [address], 07/05/2023 17:49:05 07/05/19 24 07/05/2023 UA-CU LTURE IF INDIC ATED nitrite NEGATI VE negati ve Not Available [facility] (Lab) [address] [place], [address], 07/05/2023 17:49:05 07/05/19 24 07/05/2023 UA-CU LTURE IF INDIC ATED leukocyte esterase NEGATI VE negati ve Not Available [facility] (Lab) [address] [place], [address], 07/05/2023 17:49:05 07/05/19 24 07/05/2023 UA-CU LTURE IF INDIC ATED UA microscopic NOT INDICA TAVO Not Available [facility] (Lab) [address] [place], [address], 07/05/2023 17:49:05 07/05/19 24 07/05/2023 UA-CU LTURE IF INDIC ATED method of collection VOIDED Not Available [facility] (Lab) [address] [place], [address], 07/05/2023 17:49:05 07/05/19 24 07/05/2023 UA-CU LTURE IF INDIC ATED culture setup C&S NOT INDIC Not Available [facility] (Lab) [address] [place] [address] [place], [address], 07/05/2023 17:49:05 07/05/19 24 07/05/2023 TROPO SONIA 3 HOUR troponin I, high sensitive <4 pg/mL -<52 Not Available [facility] (Lab) [address] [place], [address], 07/05/2023 18:41:26 11/17/19 23 11/16/2022 - venessa ble Pa/AP -2obl -twne s [place] Name: XIOMARA GUNN [facility] Medica l [employer] Phys: Bret LAZAR,[place] [address] : 1974 Age: 47 Sex: F Acct: [id number] Loc: [facility] PHONE #: Exam Date: 2022 Status : REG CLI FAX #: [phone] Rad# [id number] Unit# [id number] Admit Date: 2022 EXAMS: CPT CODE: [id number] MANDIB LE PA/AP- 2[place] [address] 4 VIEWS OF THE MANDIB LE, 023: CLINIC AL HISTOR Y: Right tempor omandi bular pain. COMPAR HASEEB: None. FINDIN GS: The patien t is edentu lous. The tempor omandi bular joints are congru ent. There are no apprec iable degene rative change s of the tempor omandi bular joints . The visual ized parana arianna sinuse s are clear IMPRES STEPHANEI: 1. Normal examin ation of the tempor omandi bular joints Electr onical ly Signed by MILENA GRIJALVA MD on 2022 at 1331 Report ed and signed by: MILENA GRIJALVA MD CC: Deacon Queen MD; Jomar shankar SENIOR ANIMAL TRAINER Dictat ed Date/T leatha: 2022 (1331) Techno logist : YOHANNES TAVAREZ; MILENA GRIJALVA STEWAR T Transc ribed Date/T leatha: 2022 (1331) Transc riptio nist: DR.HAG KHANH George onic Signat ure Date/T leatha: 2022 (1331) Printe d Date/T leatha: 2022 (1353) BATCH NO: N/A PAGE 1 Signed Report CC'ed Logic: Orderi ng Provid er: BRET MCKEON Attend ing Provid er: BRET MCKEON Referr ing Provid er: BRET MCKEON Consul ting Provid er: MACY KOHLI [email or web address] , [place], [address], 11/16/2022 15:06:47 07/05/19 24 07/05/2023 CT ABD/p erasto [facility] [address] [place] [address] Phone: Fax: Name: GENIA GUNNANN Exam Date: 024 : 1974 Age 48 years Gender : F Access ion: [id number] Physic vaibhav: Esdras Teague Facili ty: [facility] HSV: Outpat ient Exam: CT ABD/PE LVIS W IV AND ORAL HISTOR Y:i??i ??Abd pain withou t fever, severe epigas tric pain COMPAR HASEEB:i ??i??N one TECHNI QUE: After admini strati on of 80 mL of intrav enous Isovue [address], a standa rd abdome n and pelvis CT was perfor med. INTERP RETATI ON: Lung bases and bony struct ures: Limite d images of the lung bases are clear. There is L5-S1 degene rative disc diseas e.i??i ??No acute bony findin g. Liver, gallbl adder, spleen , pancre as: There are no abnorm alitie s..i?? i??Pos t cholec ystect esme change , with mild intrah epatic and extra hepati c bile duct dilata tion.. Kidney s and adrena l glands : There are no abnorm alitie s. Stomac h, small bowel, and colon: There are no abnorm alitie s..i?? i??The re is modera te coloni c stool. i??i?? There is a small fat-co ntaini ng umbili sandhya hernia . Lymph nodes: There is no pathol ogic sized adenop athy. Vascul ar struct ures: There are no abnorm alitie s. Pelvic struct ures: There are no abnorm alitie s.i??i ??Prio r hyster ectomy . The remain morgan of the study is within normal limits . IMPRES STEPHANIE:i ??i??N o acute findin gs in the abdome n or pelvis . Electr onical ly Signed by: Elias thomas MD All CT scans at [facility] are perfor med using dose optimi zation techni ques as approp riate to a perfor med exam includ ing the follow ing: Automa tavo exposu re contro l Adjust ment of the mA and/or kV accord ing to patien t size (this includ es techni ques or standa rdized protoc ols for target ed exams where dose is matche d to indica tion / reason for exam; i.e. extrem ities or head) Use of iterat angelo recons tructi on techni que Dictat ed By: Elias Rhodes Transc ribed By: Transc ribed On: 6:21 PM Electr onical ly signed by: Elias Rhodes Thank you for referr ing ILDA GUNN to [facility]. Legall y authen ticate d by RIAN Cruz 18:21: 14 CC'ed Logic: Orderi ng Provid er: MYLENE EPPERSON Attend ing Provid er: MYLENE EPPERSON Referr ing Provid er: MYLENE EPPERSON Admitt ing Provid er: MYLENE EPPERSON ack1 [facility] ([facility]) [address] [place] [address], [place], [address], 09/07/2023 09:27:46 Result Notes None recorded. Problems Name Problem SNOMED Code Status Onset Date Resolution Date Notes Provider Name and Address Organization Details Recorded Time Obstructive sleep apnea syndrome 85223869 Active 2022 Monica Landry MD [address] [place] [address],[address], [place], [address], [place] - [facility] - [place] & [place] 3 07:18:56 Essential hypertension 07721714 Active 2022 Rose Marie kidd, [place] [facility] [place] 3 12:50:26 Hoarse 31659573 Active 2022 Monica Landry MD [address] [place] [address],[address], [place], [address], [place] [facility] [place] 3 11:56:15 Problem Notes None recorded. Procedures Surgical History Date Name Laterality Status Provider Name and Address Organization Details Recorded Time 11/15/19 23 EMG/ Nerve Conduction Study completed Ney Arteaga M.D [address] [place] [address] Drive, [address], [place], [address], [place] [facility] [place] 11/18/2022 16:56:24 04/10/20 22 completed Crystal [place] 08/11/2022 09:33:49 04/17/20 18 Date of Last Colonoscopy completed Rosa Jacobe [place] - [place] 08/11/2022 09:33:49 cholecystectomy completed Liz Llamas [place] 05/23/2022 08:27:30 hysterectomy completed Liz Llamas [place] 05/23/2022 08:27:41 laparoscopy completed Liz Llamas [place] - [place] - [place] 05/23/2022 08:27:48 Other completed Crystal Earlywine [place] - [place] - [place] 08/11/2022 09:33:50 Imaging Results Imaging Date Name Status LastModified by Organiz ation Details LastModified Time 11/16/2022 - mandible Pa/AP-2obl-tw coby completed [email or web address] [facility] [address] [facility] , [place], [address], 11/16/2022 15:06:47 07/05/2023 CT ABD/pelvis W IV and oral completed [address] (Imaging) [address] [place] [address] , [place], [address], 09/07/2023 09:27:46 Procedure Notes None recorded. Medical Equipment None Reported. Allergies Allergen ID Allergen Name Allergen Category Reaction Reaction Severity Criticality Documentation Date Start Date Code Code System Note Provider Name and Address Organization Details Recorded Time 62143 Substance with sulfonami de structure and antibacte rial mechanism of action (substanc e) medicatio n Not available Not available Not available 05/23/2022 29799 8003 SNOMED Liz kidd, [place] - [facility] - [place] & [place] 3 08:23:54 28613 acetamino phen / hydrocodo ne medicatio n Not available Not available Not available 05/23/2022 04091 2 RxNorm Liz kidd, [place] - [facility] - [place] & [place] 3 08:24:00 20034 fentanyl medicatio n Not available Not available Not available 05/23/2022 4337 RxNorm Liz kidd, [place] - [facility] - [place] & [place] 3 08:24:07 00394 acetamino phen / oxycodone medicatio n Not available Not available Not available 05/23/2022 53729 3 RxNorm Liz kidd, [place] - [facility] - [place] & [place] 3 08:24:14 39233 Demerol medicatio n Not available Not available Not available 05/23/2022 24710 1 RxNorm MARCUS Rodriguez [facility] & [place] 3 08:24:40 03290 Tylenol medicatio n Not available Not available Not available 05/23/202299528 3 RxNorm MARCUS Rodriguez [facility] & [place] 3 08:24:45 [id number] hydrocodo ne Not available Not available Not available Not available 05/23/2022 [id number] RxNorm MARCUS Rodriguez [facility] & [place] 3 08:24:54 [id number] morphine medicatio n Not available Not available Not available 05/23/2022 7052 RxNorm MARCUS Rodriguez [facility] & [place] 3 08:25:00 67589 acetamino phen medicatio n Not available Not available Not available 10/11/2022 161 [facility] [place] 3 12:49:18 Medications Name Sig Start Date Stop Date Status Note LastModified by Organization Details LastModified Time losartan 50 mg tablet TAKE ONE TABLET BY MOUTH TWICE A DAY. active Not Available Not Available No t Available cyclobenzap rine 10 mg tablet TAKE ONE TABLET BY MOUTH EVERY 8 HOURS NEEDED FOR MUSCLE SPASMS. 05/23 completed Not Available Not Available Not Available amoxicillin 500 mg capsule TAKE (1) CAPSULE BY MOUTH EVERY EIGHT HOURS. 02/15 completed Not Available Not Available Not Available promethazin e-DM 6.25 mg-15 mg/5 mL oral syrup TAKE (1) TEASPOONF UL EVERY SIX HOURS NEEDED active Not Available Not Available No t Available gabapentin 600 mg tablet TAKE (1) TABLET BY MOUTH THREE TIMES DAILY. 05/23 completed Not Available Not Available Not Available metoprolol succinate ER 50 mg tablet,exte nded release 24 hr TAKE 1 TABLET BY MOUTH ONCE A DAY. 02/15 completed Not Available Not Available Not Available meloxicam 15 mg tablet TAKE 1 TABLET BY MOUTH EACH MORNING active Not Available Not Available No t Available prednisone 20 mg tablet TAKE (1) TABLET BY MOUTH TWICE A DAY. 02/15 completed Not Available Not Available Not Available hydroxyzine HCl 50 mg tablet TAKE 1 TABLET AT BEDTIME NEEDED FOR SLEEP 05/23 completed Not Available Not Available Not Available amlodipine 5 mg tablet TAKE (1) TABLET BY MOUTH TWICE A DAY. active Not Available Not Available No t Available tramadol 50 mg tablet TAKE 1 TABLET BY MOUTH THREE TIMES DAILY. active Not Available Not Available No t Available ondansetron 8 mg disintegrat ing tablet DISSOLVE 1 TABLET BY MOUTH TWICE DAILY NEEDED FOR NAUSEA active Not Available Not Available No t Available potassium chloride ER 20 mEq tablet,exte nded release(par t/cryst) TAKE (1) TABLET BY MOUTH TWICE A DAY. active Not Available Not Available No t Available famotidine 20 mg tablet TAKE (1) TABLET BY MOUTH TWICE A DAY. active Not Available Not Available No t Available cephalexin 500 mg capsule TAKE 1 CAPSULE BY MOUTH EVERY 12 HOURS 05/23 completed Not Available Not Available Not Available esomeprazol e magnesium 40 mg capsule,del ayed release TAKE (1) CAPSULE BY MOUTH TWICE DAILY. active Not Available Not Available No t Available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
[2024-09-10 15:47] VITALS: BP 132/81; PULSE 81; RESP 14; O2SAT 98; BMI 26.7
--- NOTE | 2024-09-10 15:49 | EXP.PAIN.SOA ---
[facility] Disclaimer: The information contained in this section may have been updated after the patient was seen, as this information can be updated by other users. Medical History HTN (hypertension) GERD (gastroesophageal reflux disease) Fibromyalgia Surgical History History of knee replacement procedure of left knee Hx of cholecystectomy H/O: hysterectomy Hx of tonsillectomy Family History Other Cancer Hypertension Seizures Social History Smoking Status: Never smoker alcohol intake: never current occupational status: other Travel in the last 8 weeks?: None PM Subjective & Objective Subjective Subjective:: Patient is a pleasant 49-year-old female who presents today for 2-month follow-up. Patient does state overall her back is about a 0 out of 10 however does state that she has been having more pain in her hips and her legs. Patient states that her hips are giving her a lot of fits and rates that pain as 7 out of 10. Patient states it is worse with increased activity or applying pressure on those sides. She does state that pain is interfering with her ability perform activities of daily living such as cooking and cleaning. Patient does also make mention that she is still having pain with numbness and tingling into her legs. Patient states that is a numbing sensation and she does feel like her legs frequently want to give out. Patient states that she has had a fall from her last appointment and does not think she did anything significant however her legs just gave out. Patient does state that she did end up quitting her job due to the fact that she felt like she could not be up on her feet for long periods of time. Patient is managed with baclofen 5 mg 3 times daily from our office and tramadol from an outside provider. Her Epifanio has been reviewed. Review of Systems: General: No recent weight changes, no fever, no sleep disturbances Respiratory: No cough, no shortness of air, no recurring pulmonary infections Cardiovascular/peripheral vascular: No chest pain, no palpitations, no edema, no shortness of breath Gastrointestinal: No new onset incontinence, normal bowel movements reported Genitourinary: No new onset incontinence Musculoskeletal: Bilateral hip pain, leg numbness Psychiatric: [Normal mood/affect] Neurological: [Denies weakness in extremities], [denies balance issues] Pain at rest (0-10 scale): 7 Objective Objective:: Physical Exam: General: Alert and oriented x3, no acute distress, pleasant and cooperative Lungs: Respirations even and unlabored, symmetrical chest expansion Eyes: PERRL Musculoskeletal: Flexion and extension of lumbar [spine] somewhat guarded secondary to pain, [antalgic gait noted] extreme point tenderness along bilateral greater trochanteric bursa's Neurological: Speech clear, no gross sensory deficit Has patient had previous pain injection?: No Conservative treatment options previously tried: Home exercise plan Length of treatment: Longer than 12 weeks Meds Home Medications and Allergies Home Medications ?Medication ?Instructions ?Recorded ?Confirmed ?Type cyclobenzaprine 10 mg tablet 10 mg PO QIDP PRN . 12/20/23 09/10/24 History esomeprazole magnesium 40 mg 40 mg PO BID GERD 12/20/23 09/10/24 History capsule,delayed release famotidine 20 mg tablet 20 mg PO BID GERD 12/20/23 09/10/24 History hydrochlorothiazide 25 mg tablet 25 mg PO DAILYP PRN Fluid 12/20/23 09/10/24 History hydroxyzine HCl 25 mg tablet 25 mg PO HSP PRN Sleep 12/20/23 09/10/24 History loratadine 10 mg tablet 10 mg PO DAILYP PRN ALLERGIES 12/20/23 09/10/24 History losartan 50 mg tablet 50 mg PO BID BLOOD PRESSURE 12/20/23 09/10/24 History metoclopramide HCl 10 mg tablet 10 mg PO Q6H GERD 12/20/23 09/10/24 History metoprolol succinate 100 mg 100 mg PO DAILY BLOOD PRESSURE 12/20/23 09/10/24 History tablet,extended release 24 hr sertraline 50 mg tablet 50 mg PO DAILY MOOD 12/20/23 09/10/24 History tramadol 50 mg tablet 50 mg PO QIDP PRN Pain 12/20/23 09/10/24 History baclofen 5 mg tablet 5 mg PO TID #90 tabs 06/12/24 09/10/24 Rx New Prescriptions to Start Prescriptions: Allergies Allergy/AdvReac Type Severity Reaction Status Date / Time acetaminophen AdvReac Verified 01/01/24 13:57 albuterol AdvReac Verified 01/01/24 13:57 fentanyl AdvReac Verified 01/01/24 13:57 hydrocodone AdvReac Verified 01/01/24 13:57 meperidine AdvReac Verified 01/01/24 13:57 morphine AdvReac Verified 01/01/24 13:57 oxycodone AdvReac Verified 01/01/24 13:57 Sulfa (Sulfonamide AdvReac Verified 01/01/24 13:57 Antibiotics) Assessment and Plan *Assessment and plan (1) Greater trochanteric bursitis of both hips: Status: Acute Category: Medical Code(s): M70.61 - Trochanteric bursitis, right hip; M70.62 - Trochanteric bursitis, left hip (2) Lumbar radiculopathy: Status: Acute Category: Medical Code(s): M54.16 - Radiculopathy, lumbar region Plan Patient is experiencing worsening pain in her bilateral hips with extreme point tenderness along her bilateral greater trochanteric bursa's. I did discuss with the patient that I do believe she would benefit from injections at these locations. Risk and benefits were discussed with the patient and she would like to proceed forward with this plan of care. Patient has tried and failed conservative therapy including oral medications, heat and ice, topicals, at home stretching exercise for longer than 12 weeks. Patient has had chronic hip pain for longer than 3 months. We did discuss bursa injections in the past. Patient will be scheduled for bilateral greater trochanteric bursa injections under fluoroscopy. I will also send in a 2-week dose of pregabalin 25 mg at bedtime. Patient has been instructed to contact the clinic with any concerns before the next appointment. Dr. Jurado has reviewed this note and agrees with this plan of care. This note was dictated using voice recognition software and make contain errors or omissions. All injections are used with Lidocaine, Bupivacaine and dexamethasone. Occasionally urine drug screen is needed to verify patient's compliance with our office pain contract. This is ordered based off specific treatments related to chronic pain with the potential to abuse certain medications.
== END 2024-09-10 23:59 | disposition home or self-care (01) ==
PROVIDERS: Visit Provider Nurse Practitioner Family
DX: M70.61 Trochanteric bursitis, right hip (principal); M70.62 Trochanteric bursitis, left hip; M54.16 Radiculopathy, lumbar region; Z96.652 Presence of left artificial knee joint; Z73.89 Other problems related to life management difficulty
CPT/HCPCS: 99212; G0463

== ENCOUNTER 2024-10-14 11:27 | Day surgery (SDC) | payer MEDICAID, SELFPAY ==
[2024-10-14 11:39] VITALS: BP 126/58; PULSE 83; RESP 16; TEMP 36.4; O2SAT 100; BMI 29.0
[2024-10-14 12:02] VITALS: BP 128/82; PULSE 78; RESP 16; O2SAT 98
[2024-10-14] MEDS: BUPIVACAINE 0.25% 10ML INJ 25 MG IJ (12:04)
[2024-10-14 12:05] VITALS: BP 136/77; PULSE 75; RESP 18; O2SAT 99
[2024-10-14] MEDS: DEXAMETHASONE 10MG/ML 1ML VIAL 10 MG (12:05)
[2024-10-14] MEDS: LIDOCAINE 1% 5ML PF VIAL 5 ML (12:05)
[2024-10-14 12:06] VITALS: BP 136/77; PULSE 75; RESP 18; O2SAT 99
--- NOTE | 2024-10-14 12:11 | P.PCN_ITS ---
Procedure Date: 10/14/24 Time: 11:50 Anesthesiologist:: Mesfin Roblero CRNA Complications:: None Pre-procedure Diagnosis:: Bilateral trochanteric bursitis Post-procedure Diagnosis:: Same Indications for Procedure:: Patient is a pleasant 49-year-old female who comes our clinic today for bilat eral trochanteric bursa injections. Patient describes bilateral lateral hip pain that is constant, dull, sharp, stabbing. She has extreme point tenderness over the bilateral trochanteric bursa areas. She rates her pain 8/10. Procedure Details:: Procedure: Bilateral trochanteric bursa joint injections under fluoroscopy Informed consent was obtained and the risks and benefits of the procedure were explained to the patient.~ The patient was taken to the procedure room and noninvasive monitors were placed including a noninvasive blood pressure cuff and pulse oximeter.~ The patient was placed prone on the procedure table. Both hips were cleansed using Betadine as a cleansing solution. C-arm fluoroscopy was used to view the right trochanteric bursa joint.~ The skin and subcutaneous tissues were anesthetized using lidocaine 1.5% and a 25-gauge needle.~ After this, a 22- gauge spinal needle was inserted under fluoroscopic guidance into the inferior aspect of the right trochanteric bursa.~ Omnipaque dye was injected and good spread was seen throughout the joint.~ After this, approximately 5 mL of bupivacaine, 0.25% and Depo-Medrol, 40 mg was incrementally injected into the right sacroiliac joint. We then moved to the left trochanteric bursa joint.~ The skin and subcutaneous tissues were anesthetized using lidocaine 1.5% and a 25-gauge needle.~ After this, a 22-gauge spinal needle was inserted under fluoroscopic guidance into the inferior aspect of the left trochanteric bursa joint.~ Omnipaque dye was injected and good spread was seen throughout the joint. After this, approximately 5 mL of bupivacaine, 0.25% and Depo-Medrol, 40 mg was incrementally injected into the left sacroiliac joint.~ The patient tolerated the procedure well with no complications. The patient was observed in the Pain Clinic and then was discharged home neurologically intact. Plan and Disposition:: Patient was discharged without incident.
== END 2024-10-14 12:02 | disposition home or self-care (01) ==
PROVIDERS: Visit Provider Nurse Anesthetist, Certified Registered
DX: M46.1 Sacroiliitis, not elsewhere classified (principal); M70.62 Trochanteric bursitis, left hip; M70.61 Trochanteric bursitis, right hip; Y93.89 Activity, other specified; M79.7 Fibromyalgia; K21.9 Gastro-esophageal reflux disease without esophagitis; I10 Essential (primary) hypertension; Z88.8 Allergy status to other drugs, medicaments and biological substances; Z88.5 Allergy status to narcotic agent; Z88.6 Allergy status to analgesic agent; Z88.2 Allergy status to sulfonamides; Z79.899 Other long term (current) drug therapy
CPT/HCPCS: 27096; G0260; J0665; J1100; J2003

== ENCOUNTER 2024-10-29 13:52 | Outpatient (POV) | payer MEDICAID, SELFPAY ==
--- OUTSIDE RECORDS SUMMARY | 2024-10-29 13:55 | XMS_ITS | Referral Summary ---
Author Organization [employer] Address [address] [place] [address] Care Team Providers Care Glass Laminating Operator Name Role Phone Bennie Arauz MD Primary Care Provider [phone] Allergies Active Allergy Reactions Criticality Noted Date Comments Acetaminophen Nausea And Vomiting 01/26/2008 Albuterol Sulfate 04/19/2016 Fentanyl Nausea And Vomiting 04/19/2016 Other reaction(s): Nausea / Vomiting / Diarrhea Hydrocodone Bitartrate 01/26/2008 Other reaction(s): Vomiting Hydrocodone-Acetaminophe n 04/19/2016 Other reaction(s): Nausea / Vomiting / Diarrhea Meperidine Nausea And Vomiting 04/19/2016 Other reaction(s): Nausea / Vomiting / Diarrhea Morphine Nausea And Vomiting 04/19/2016 Other reaction(s): Nausea / Vomiting / Diarrhea Oxycodone-Acetaminophen 04/19/2016 Other reaction(s): Nausea / Vomiting / Diarrhea Sulfa (Sulfonamide Antibiotics) 01/26/2008 Medications hydrOXYzine (ATARAX) 25 MG tablet Take 2 tablets (50 mg total) by mouth every night as needed. 09/30/2022 Active esomeprazole (NexIUM) 40 MG capsule Take 1 capsule (40 mg total) by mouth daily. 09/25/2022 Active traMADoL (ULTRAM) 50 mg tabletIndication s:Sciatica, unspecified laterality,Acute low back pain with sciatica, sciatica laterality unspecified, unspecified back pain laterality,DDD (degenerative disc disease), lumbosacral Take 1 tablet (50 mg total) by mouth every 6 (six) hours as needed for Pain. Max Daily Amount: 200 mg 20 tablet 06/23/2023 Active loratadine (CLARITIN) 10 mg tablet Take 1 tablet (10 mg total) by mouth daily as needed. 10/04/2023 Active cyclobenzaprine (FLEXERIL) 10 MG tablet Take 1 tablet (10 mg total) by mouth 4 (four) times daily as needed. 10/04/2023 Active sertraline (ZOLOFT) 50 MG tablet Take 1 tablet (50 mg total) by mouth nightly. 11/13/2023 Active famotidine (PEPCID) 20 MG tablet Take 1 tablet (20 mg total) by mouth 2 (two) times daily. 11/02/2023 Active losartan (COZAAR) 50 MG tablet Take 1 tablet (50 mg total) by mouth 2 (two) times daily. 11/13/2023 Active metoprolol succinate (TOPROL-XL) 100 MG 24 hr tablet Take 1 tablet (100 mg total) by mouth daily. 11/01/2023 Active hydroCHLOROthiaz errol (HYDRODIURIL) 25 MG tablet Take 1 tablet (25 mg total) by mouth daily as needed. 10/04/2023 Active metoclopramide HCl (REGLAN) 10 MG tablet Take 1 tablet (10 mg total) by mouth every 6 (six) hours. 10/22/2023 Active Active Problems Problem Noted Date Diagnosed Date DDD (degenerative disc disease), lumbar 07/02/19 24 Status post total left knee replacement 07/02/19 24 Bilateral carpal tunnel syndrome 02/28/2023 Numbness and tingling of both upper extremities 10/25/2022 Strain of right hip, subsequent encounter 2022 Primary osteoarthritis of right hip 09/26/2022 Derangement of hip joint 09/05/2022 Closed nondisplaced fracture of anterior wall of right acetabulum, initial encounter 09/05/2022 Social History Tobacco Use Types Packs/Day Years Used Date Smoking Tobacco: Every Day Cigarettes Passive Smoke Exposure: Never Smokeless Tobacco: Never Tobacco Cessation:Ready to Q uit: Not Asked; Counseling Given: Not Answered Alcohol Use Standard Drinks/Week Comments Never 0 (1 standard drink = 0.6 oz pur e alcohol) Interpersonal Safety Answer Date Record ed Family or friends hurt you Not on file 05/20 Family or friends insult you Not on file Family or friends threaten you Not on file 0 05/20/2023 Family or friends scream or curse at you Not on file 05/20/2023 Housing Stability Answer Date Recorded Living situation today Not on file Living situation problems Not on file 2023 Family and Community Support Answer Ronn e Recorded Help with Day to Day Activities Not on file 05/20/2023 Feeling Lonely or Isolated Not on file 05/20 Educational Attainment Answer Date Jeremie rded Speak language other than Macedonian at home Not on file 05/20/2023 Want help with school or training Not on file 05/20/2023 Depression Answer Date Recorded PHQ-2 Risk Not on file 05/20/2023 Disabilities Answer Date Recorded Difficulty concentrating Not on file 024 Difficulty doing errands alone Not on file 0 05/20/2023 Substance Use Answer Date Recorded Used prescription meds for non-medical reasons N ot on file 05/20/2023 Used illegal drugs past 12 months Not on file 05/20/2023 Comments Unknown Sex and Gender Information Value Date Recorded Sex Assigned at Not on file Legal Sex Female 5:46 PM CDT Gender Identity Not on file Sexual Orientation Not on file Last Filed Vital Signs Vital Sign Reading Time Taken Comments Blood Pressure 146/95 11/15/2023 1:42 PM EDT Pulse 87 11/15/2023 1:42 PM EDT Temperature 36.6 C (97.9 F) 06/23/2023 2:45 PM EST Respiratory Rate 20 06/23/2023 11:40 AM EST Oxygen Saturation 95% 06/23/2023 2:45 PM EST Inhaled Oxygen Concentration - - Weight 90.7 kg (200 lb) 11/15/2023 1:42 PM EDT Height 170.2 cm (5' 7 ) 11/15/2023 1:42 PM EDT Body Mass Index 31.32 11/15/2023 1:42 PM EDT Plan of Treatment Not on file Insurance [facility] Care Teams Glass Laminating Operator Relationship Specialty Start Date End Date Bennie Arauz MD [address] [place] [id number] PCP - General Orthopedic Surgery 06/23/23
--- OUTSIDE RECORDS SUMMARY | 2024-10-29 13:55 | XMS_ITS | Encounter Summary ---
Author Organization [employer] Address [address] [place] [address] Care Team Providers Care Fast Food Cashier Name Role Phone Godfrey Trimble NP Primary Care Provider [phone] Bennie Arauz MD Primary Care Provider [phone] Encounter Details Date Type Department Care Team (Late st Contact Info) Description 08/23/2022 Outside Orders [facility] Admitting [address] [place] [address] Brandon Mitchell MD [address] [place] [id number] Social History Tobacco Use Types Packs/Day Years Used Date Smoking Tobacco: Never Assessed Comments Unknown Sex and Gender Information Value Date Recorded Sex Assigned at Not on file Legal Sex Female 5:46 PM CDT Gender Identity Not on file Sexual Orientation Not on file COVID-19 Exposure Response Date Recorded In the last 10 days, have yo u been in contact with someone who was confirmed or suspected to have Coronavirus/COVID-19? No / Unsure 08/23/2022 11:07 AM EDT documented as of this encounter Plan of Treatment Not on file documented as of this encounter Visit Diagnoses Not on filedocumented in this encounter Care Teams Fast Food Cashier Relationship Specialty Start Date End Date Godfrey Trimble NP [address] [place] [id number] PCP - General Nurse Practitioner 08/23/22 06/22/23 Bennie Arauz MD [address] [place] [address] [id number] PCP - General Orthopedic Surgery 06/23/23 documented as of this encounter
--- OUTSIDE RECORDS SUMMARY | 2024-10-29 13:55 | XMS_ITS | Data Portability ---
Author Organization [facility] and [facility] [employer] Address [address] [place] [address] Assessment No assessment recorded. Plan of Treatment Reminders Order Date Submit Date Provider Last Modified By Organization Details Last Modified Time Details Appointments None recorded. Lab drug screen, urine - can be urine or bloody LC [id number] Toxassure 2024 025 [facility] (Registration ), [address] [place] [address] Tonia Brown, [place], [address], 5 14:11:07 Referral None recorded. Procedures polysomnog mima, diagnostic (PROC) - In lab sleep study [address] (Centralized Scheduling), [facility] [address], [place], [address], 4 08:37:58 Surgeries None recorded. Imaging None recorded. Medication Orders None recorded. Patient TargetsNo targets recorded. Patient Instructions Encounter Date Encounter Id Patient Instructions Last Modified By Organization Details Last Modified Time 02/05/2023 [id number] Weight loss. Giv en her home sleep study is negative for sleep apnea and her history and physical exam is consistent with sleep apnea, recommend overnight full in-lab polysomnography study. This was ordered but not done yet. Follow up with ENT for TMJ and hoarseness. [email or web address] Not available 02/05/2023 12:05:43 02/15/2023 [id number] I have personall y reviewed the data obtained and entered from the scribe, medical corps officer or nurse for this patient for this patient encounter. Discussed with patient. Plan to proceed with flexible laryngoscopy in follow-up appointment in 2 weeks, to allow improvement of TMJ Not available 02/15/2023 13:55:42 02/27/2023 [id number] I have personall y reviewed the data obtained and entered from the scribe, medical corps officer or nurse for this patient for this patient encounter. Discussed with the patient. Dysphonia related to underlying gastroesophageal reflux disease. Patient to follow-up with GI. Follow-up as needed. Not available 02/27/2023 13:33:15 Reason for Referral None Reported. Results Created Date Observation Date Name Description Value Unit Range Abnormal Flag Note LastModifiedBy Organization Detail LastModifiedTime 07/05/19 24 07/05/2023 PT (PROT HROMB IN TIME) W/INR PT w/INR <9.6 secon ds 9.9-11 .7 low Not Available [facility] (Lab) [address] [place] [address] [place], [address], 07/05/2023 16:41:17 07/05/19 24 07/05/2023 PT (PROT HROMB IN TIME) W/INR INR 0.9 0.9-1. 1 Not Available [facility] (Lab) [address] [place] [address] [place], [address], 07/05/2023 16:41:17 07/05/19 24 07/05/2023 PTT (APTT ) APTT 22.7 secon ds 20-30 Not Available [facility] (Lab) [address] [place] [address] [place], [address], 07/05/2023 16:43:31 07/05/19 24 07/05/2023 COMPR EHENS ANGELO METAB OLIC PANEL sodium 139 mmol/ L 136-14 5 Not Available [facility] (Lab) [address] [place] [address] [place], [address], 07/05/2023 16:44:37 07/05/19 24 07/05/2023 COMPR EHENS ANGELO METAB OLIC PANEL potassium 3.5 mmol/ L 3.5-5. 1 Not Available [facility] (Lab) [address] [facility] [place], [address], 07/05/2023 16:44:37 07/05/19 24 07/05/2023 COMPR EHENS ANGELO METAB OLIC PANEL chloride 100 mmol/ L 98.0-1 07.0 Not Available [facility] (Lab) [address] [facility] [place], [address], 07/05/2023 16:44:37 07/05/19 24 07/05/2023 COMPR EHENS ANGELO METAB OLIC PANEL total CO2 31 mmol/ L 21-32 Not Available [facility] (Lab) [address] [facility] [place], [address], 07/05/2023 16:44:37 07/05/19 24 07/05/2023 COMPR EHENS ANGELO METAB OLIC PANEL anion gap 11.5 mmol/ L 5.0-15 .0 Not Available [facility] (Lab) [address] [facility] [place], [address], 07/05/2023 16:44:37 07/05/19 24 07/05/2023 COMPR EHENS ANGELO METAB OLIC PANEL glucose 110 mg/dL 70-120 Not Available [facility] (Lab) [address] [facility] [place], [address], 07/05/2023 16:44:37 07/05/19 24 07/05/2023 COMPR EHENS ANGELO METAB OLIC PANEL BUN 16 mg/dL 7-18 Not Available [facility] (Lab) [address] [facility] [place], [address], 07/05/2023 16:44:37 07/05/19 24 07/05/2023 COMPR EHENS ANGELO METAB OLIC PANEL creatinine 0.9 mg/dL 0.6-1. 0 Not Available [facility] (Lab) [address] [facility] [place], [address], 07/05/2023 16:44:37 07/05/19 24 07/05/2023 COMPR EHENS ANGELO METAB OLIC PANEL BUN/creatini ne ratio 17.8 ratio 9-21 Not Available [facility] (Lab) [address] [facility] [place], [address], 07/05/2023 16:44:37 07/05/19 24 07/05/2023 COMPR EHENS ANGELO METAB OLIC PANEL estimated glom filtration rate >60 mL/mi n 60.0- Not Available [facility] (Lab) [address] [facility] [place], [address], 07/05/2023 16:44:37 07/05/19 24 07/05/2023 COMPR EHENS ANGELO METAB OLIC PANEL calcium 10.1 mg/dL 8.6-9. 8 high Not Available [facility] (Lab) [address] [facility] [place], [address], 07/05/2023 16:44:37 07/05/19 24 07/05/2023 COMPR EHENS ANGELO METAB OLIC PANEL bilirubin, total 0.2 mg/dL 0.2-1. 0 USE OF THIS ASSAY IS NOT RECOM XIANG D FOR PATIE NTS UNDER GOING TREAT MENT WITH ELTRO MBOPA G DUE TO THE POTEN TIAL FOR FALSE LY ELEVA TAVO RESUL TS. Not Available [facility] (Lab) [address] [facility] [place], [address], 07/05/2023 16:44:37 07/05/19 24 07/05/2023 COMPR EHENS ANGELO METAB OLIC PANEL AST (SGOT) 11 IU/L 15-37 low Not Available [facility] (Lab) [address] [facility] [place], [address], 07/05/2023 16:44:37 07/05/19 24 07/05/2023 COMPR EHENS ANGELO METAB OLIC PANEL ALT (SGPT) 21 IU/L 12-78 Not Available [facility] (Lab) [address] [facility] [place], [address], 07/05/2023 16:44:37 07/05/19 24 07/05/2023 COMPR EHENS ANGELO METAB OLIC PANEL alk phos 108 IU/L 54-369 Not Available [facility] (Lab) [address] [facility] [place], [address], 07/05/2023 16:44:37 07/05/19 24 07/05/2023 COMPR EHENS ANGELO METAB OLIC PANEL total protein 8.1 g/dL 6.4-8. 2 Not Available [facility] (Lab) [address] [facility] [place], [address], 07/05/2023 16:44:37 07/05/19 24 07/05/2023 COMPR EHENS ANGELO METAB OLIC PANEL albumin 3.8 g/dL 3.4-5. 0 Not Available [facility] (Lab) [address] [facility] [place], [address], 07/05/2023 16:44:37 07/05/19 24 07/05/2023 COMPR EHENS ANGELO METAB OLIC PANEL globulin 4.3 g/dL 1.3-3. 5 high Not Available [facility] (Lab) [address] [facility] [place], [address], 07/05/2023 16:44:37 07/05/19 24 07/05/2023 COMPR EHENS ANGELO METAB OLIC PANEL alb/glob ratio 0.9 ratio 1.0-3. 9 low Not Available [facility] (Lab) [address] [facility] [place], [address], 07/05/2023 16:44:37 07/05/19 24 07/05/2023 COMPR EHENS ANGELO METAB OLIC PANEL osmolality, calculated 279 mOsm/ kg 272-29 5 Not Available [facility] (Lab) [address] [facility] [place], [address], 07/05/2023 16:44:37 07/05/19 24 07/05/2023 TROPO SONIA I troponin I, high sensitive <4 pg/mL -<52 Not Available [facility] (Lab) [address] [facility] [place], [address], 07/05/2023 16:44:38 07/05/19 24 07/05/2023 TROPO SONIA I initial? YES yes/no /unk Not Available [facility] (Lab) [address] [facility] [place], [address], 07/05/2023 16:44:38 07/05/19 24 07/05/2023 LIPAS E lipase 47 U/L 16- Not Available [facility] (Lab) [address] [facility] [place], [address], 07/05/2023 16:44:39 07/05/19 24 07/05/2023 CBC WITH AUTO DIFF WBC 21.4 10 4.5-11 .5 high Not Available [facility] (Lab) [address] [facility] [place], [address], 07/05/2023 17:04:36 07/05/19 24 07/05/2023 CBC WITH AUTO DIFF RBC 4.74 10 4.00-5 .40 Not Available [facility] (Lab) [address] [facility] [place], [address], 07/05/2023 17:04:36 07/05/19 24 07/05/2023 CBC WITH AUTO DIFF hemoglobin 14.9 g/dL 12.0-1 5.0 Not Available [facility] (Lab) [address] [facility] [place], [address], 07/05/2023 17:04:36 07/05/19 24 07/05/2023 CBC WITH AUTO DIFF hematocrit 45.9 % 35.0-4 9.0 Not Available [facility] (Lab) [address] [facility] [place], [address], 07/05/2023 17:04:36 07/05/19 24 07/05/2023 CBC WITH AUTO DIFF MCV 96.8 fL 80-100 Not Available [facility] (Lab) [address] [facility] [place], [address], 07/05/2023 17:04:36 07/05/19 24 07/05/2023 CBC WITH AUTO DIFF MCH 31.4 pg 26-32 Not Available [facility] (Lab) [address] [facility] [place], [address], 07/05/2023 17:04:36 07/05/19 24 07/05/2023 CBC WITH AUTO DIFF MCHC 32.5 g/dL 32-36 Not Available [facility] (Lab) [address] [facility] [place], [address], 07/05/2023 17:04:36 07/05/19 24 07/05/2023 CBC WITH AUTO DIFF RDW 14.1 % 11.5-1 4.5 Not Available [facility] (Lab) [address] [facility] [place], [address], 07/05/2023 17:04:36 07/05/19 24 07/05/2023 CBC WITH AUTO DIFF platelet count 420 10 150-45 0 Not Available [facility] (Lab) [address] [facility] [place], [address], 07/05/2023 17:04:36 07/05/19 24 07/05/2023 CBC WITH AUTO DIFF mean platelet volume 10.4 fL 6.8-10 .2 high Not Available [facility] (Lab) [address] [facility] [place], [address], 07/05/2023 17:04:36 07/05/19 24 07/05/2023 CBC WITH AUTO DIFF manual differential PERFOR MED Not Available [facility] (Lab) [address] [facility] [place], [address], 07/05/2023 17:04:36 07/05/19 24 07/05/2023 CBC WITH AUTO DIFF platelet estimate ADEQUA TE Not Available [facility] (Lab) [address] [facility] [place], [address], 07/05/2023 17:04:36 07/05/19 24 07/05/2023 CBC WITH AUTO DIFF RBC morphology NORMAL Not Available [facility] (Lab) [address] [facility] [place], [address], 07/05/2023 17:04:36 07/05/19 24 07/05/2023 CBC WITH AUTO DIFF ne% 73.0 % 50-70 high Not Available [facility] (Lab) [address] [facility] [place], [address], 07/05/2023 17:04:36 07/05/19 24 07/05/2023 CBC WITH AUTO DIFF lymphs 16.9 % 18-42 low Not Available [facility] (Lab) [address] [facility] [place], [address], 07/05/2023 17:04:36 07/05/19 24 07/05/2023 CBC WITH AUTO DIFF MO% 7.8 % 2-11 Not Available [facility] (Lab) [address] [facility] [place], [address], 07/05/2023 17:04:36 07/05/19 24 07/05/2023 CBC WITH AUTO DIFF eo% 2.2 % 1-3 Not Available [facility] (Lab) [address] [facility] [place], [address], 07/05/2023 17:04:36 07/05/19 24 07/05/2023 CBC WITH AUTO DIFF ba% 0.1 % 0.0-2. 0 Not Available [facility] (Lab) [address] [facility] [place], [address], 07/05/2023 17:04:36 07/05/19 24 07/05/2023 CBC WITH AUTO DIFF neutrophils (absolute) 15.6 K/uL 2.0-6. 9 high Not Available [facility] (Lab) [address] [facility] [place], [address], 07/05/2023 17:04:36 07/05/19 24 07/05/2023 CBC WITH AUTO DIFF lymphocytes (absolute) 3.6 K/uL 0.6-3. 4 high Not Available [facility] (Lab) [address] [facility] [place], [address], 07/05/2023 17:04:36 07/05/19 24 07/05/2023 CBC WITH AUTO DIFF monocytes (absolute) 1.7 K/uL 0.0-0. 9 high Not Available [facility] (Lab) [address] [facility] [place], [address], 07/05/2023 17:04:36 07/05/19 24 07/05/2023 CBC WITH AUTO DIFF eosinophils (absolute) 0.5 K/uL 0.0-0. 7 Not Available [facility] (Lab) [address] [facility] [place], [address], 07/05/2023 17:04:36 07/05/19 24 07/05/2023 CBC WITH AUTO DIFF basophils (absolute) 0.0 K/uL 0.0-0. 2 Not Available [facility] (Lab) [address] [facility] [place], [address], 07/05/2023 17:04:36 07/05/19 24 07/05/2023 CBC WITH AUTO DIFF segmented neutrophil 74 % 40-75 Not Available [facility] (Lab) [address] [facility] [place], [address], 07/05/2023 17:04:36 07/05/19 24 07/05/2023 CBC WITH AUTO DIFF lymphocyte 17 % Not Available [facility] (Lab) [address] [facility] [place], [address], 07/05/2023 17:04:36 07/05/19 24 07/05/2023 CBC WITH AUTO DIFF monocyte 7 % 0-12 Not Available [facility] (Lab) [address] [facility] [place], [address], 07/05/2023 17:04:36 07/05/19 24 07/05/2023 CBC WITH AUTO DIFF eosinophil 2 % Not Available [facility] (Lab) [address] [facility] [place], [address], 07/05/2023 17:04:36 07/05/19 24 07/05/2023 OCCUL T BLOOD fecal occult blood,single spec POSITI VE negati ve delta Not Available [facility] (Lab) [address] [facility] [place], [address], 07/05/2023 17:42:47 07/05/19 24 07/05/2023 OCCUL T BLOOD occult blood internal control PASS PASS Not Available [facility] (Lab) [address] [facility] [place], [address], 07/05/2023 17:42:47 07/05/19 24 07/05/2023 UA-CU LTURE IF INDIC ATED color YELLOW yellow Not Available [facility] (Lab) [address] [facility] [place], [address], 07/05/2023 17:49:05 07/05/19 24 07/05/2023 UA-CU LTURE IF INDIC ATED clarity CLEAR clear Not Available [facility] (Lab) [address] [facility] [place], [address], 07/05/2023 17:49:05 07/05/19 24 07/05/2023 UA-CU LTURE IF INDIC ATED glucose NEGATI VE negati ve Not Available [facility] (Lab) [address] [facility] [place], [address], 07/05/2023 17:49:05 07/05/19 24 07/05/2023 UA-CU LTURE IF INDIC ATED bilirubin NEGATI VE negati ve Not Available [facility] (Lab) [address] [facility] [place], [address], 07/05/2023 17:49:05 07/05/19 24 07/05/2023 UA-CU LTURE IF INDIC ATED ketones NEGATI VE negati ve Not Available [facility] (Lab) [address] [facility] [place], [address], 07/05/2023 17:49:05 07/05/19 24 07/05/2023 UA-CU LTURE IF INDIC ATED specific gravity 1.015 1.00 - >=1.03 0 Not Available [facility] (Lab) [address] [facility] [place], [address], 07/05/2023 17:49:05 07/05/19 24 07/05/2023 UA-CU LTURE IF INDIC ATED blood NEGATI VE negati ve Not Available [facility] (Lab) [address] [facility] [place], [address], 07/05/2023 17:49:05 07/05/19 24 07/05/2023 UA-CU LTURE IF INDIC ATED pH 6.0 5 - 8 Not Available [facility] (Lab) [address] [facility] [place], [address], 07/05/2023 17:49:05 07/05/19 24 07/05/2023 UA-CU LTURE IF INDIC ATED protein NEGATI VE negati ve Not Available [facility] (Lab) [address] [facility] [place], [address], 07/05/2023 17:49:05 07/05/19 24 07/05/2023 UA-CU LTURE IF INDIC ATED urobilinogen 0.2 mg/dL 0.2 - 1.0 Not Available [facility] (Lab) [address] [facility] [place], [address], 07/05/2023 17:49:05 07/05/19 24 07/05/2023 UA-CU LTURE IF INDIC ATED nitrite NEGATI VE negati ve Not Available [facility] (Lab) [address] [facility] [place], [address], 07/05/2023 17:49:05 07/05/19 24 07/05/2023 UA-CU LTURE IF INDIC ATED leukocyte esterase NEGATI VE negati ve Not Available [facility] (Lab) [address] [facility] [place], [address], 07/05/2023 17:49:05 07/05/19 24 07/05/2023 UA-CU LTURE IF INDIC ATED UA microscopic NOT INDICA TAVO Not Available [facility] (Lab) [address] [facility] [place], [address], 07/05/2023 17:49:05 07/05/19 24 07/05/2023 UA-CU LTURE IF INDIC ATED method of collection VOIDED Not Available [facility] (Lab) [address] [facility] [place], [address], 07/05/2023 17:49:05 07/05/19 24 07/05/2023 UA-CU LTURE IF INDIC ATED culture setup C&S NOT INDIC Not Available [facility] (Lab) [address] [facility] [place], [address], 07/05/2023 17:49:05 07/05/19 24 07/05/2023 TROPO SONIA 3 HOUR troponin I, high sensitive <4 pg/mL -<52 Not Available [facility] (Lab) [address] [facility] [place], [address], 07/05/2023 18:41:26 11/17/19 23 11/16/2022 - venessa Harding/LA cyr -guillaume s [facility] Name: YAZAN BRUNO,XIOMARA NN [address] Phys: Bret LAZAR,[place] [address] : 1974 Age: 47 Sex: F Acct: [id number] Loc: ELSA PHONE #: Exam Date: 2022 Status : REG CLI FAX #: Rad# [id number] Unit# [id number] Admit Date: 2022 EXAMS: CPT CODE: [id number] [id number] MANDIB LE PA/AP- 2OBL-T WNES 96477 4 VIEWS OF THE MANDIB LE, 023: CLINIC AL HISTOR Y: Right tempor omandi bular pain. COMPAR HASEEB: None. FINDIN GS: The patien t is edentu lous. The tempor omandi bular joints are congru ent. There are no apprec iable degene rative change s of the tempor omandi bular joints . The visual ized parana arianna sinuse s are clear IMPRES STEPHANIE: 1. Normal examin ation of the tempor omandi bular joints Electr onical ly Signed by MILENA GRIJALVA MD on 2022 at 1331 Report ed and signed by: MILENA GRIJALVA MD CC: Deacon Queen MD; Jomar shankar [employer] Dictat ed Date/T leatha: 2022 (1331) Techno [...] MCKEON Consul ting Provid er: MACY KOHLI [email or web address] [address] [place], [address], 11/16/2022 15:06:47 07/05/19 24 07/05/2023 CT ABD/p erasto W IV and oral [facility] [address] [place] [address] Phone: Fax: Name: ILDA GUNN Exam Date: 024 : 1974 Age 48 years Gender : F Access ion: [id number] Physic vaibhav: Esdras Teague Facili ty: [facility] al HSV: Outpat ient Exam: CT ABD/PE [...] Elias thomas MD All CT scans at [facility] are perfor med using dose optimi [...] Rhodes Transc ribed By: Transc ribed On: 024 6:21 PM Electr onical ly signed by: Elias Rhodes Thank you for referr ing ILDA GUNN to [facility]. Legall y authen ticate d by RIAN Cruz 18:21: 14 CC'ed Logic: Orderi ng Provid er: MYLENE EPPERSON Attend ing Provid er: MYLENE EPPERSON Referr ing Provid er: MYLENE EPPERSON Admitt ing Provid er: MYLENE EPPERSON [address] (Imaging) [address] [place] [address], [place], [address], 09/07/2023 09:27:46 Result Notes None recorded. Problems Name Problem SNOMED Code Status Onset Date Resolution Date Notes Provider Name and Address Organization Details Recorded Time Obstructive sleep apnea syndrome 12054262 Active 2022 Rip Carl MD [facility] [employer] [facility],[address], [address] [place] [address] - [facility] & [place] 3 07:18:56 Essential hypertension 05313590 Active 2022 Rose Marie kidd, [place] - [facility] - [place] & [place] 3 12:50:26 Hoarse 56415904 Active 2022 Rip Carl MD [facility] [employer],[address], [place], [address], [place] - [facility] - [place] [facility] [place] 3 11:56:15 Problem Notes None recorded. Procedures Surgical History Date Name Laterality Status Provider Name and Address Organization Details Recorded Time 11/15/19 23 EMG/ Nerve Conduction Study completed Ney Arteaga M.D [address] [place] [address], [address], [place], [address], [place] - [facility] - [place] [facility] [place] 11/18/2022 16:56:24 04/10/20 22 completed Crystal [place]wine [place] - [place] 08/11/2022 09:33:49 04/17/20 18 Date of Last Colonoscopy completed Crystal [place] 08/11/2022 09:33:49 cholecystectomy completed Liz Llamas [place] - [place] 05/23/2022 08:27:30 hysterectomy completed Liz Llamas [place] - [facility] [facility] [place] 05/23/2022 08:27:41 laparoscopy completed Liz Llamas [place] - [place] - [place] [facility] [place] 05/23/2022 08:27:48 Other completed Crystal Earlywine [place] - [facility] 08/11/2022 09:33:50 Imaging Results None recorded. Procedure Notes None recorded. Medical Equipment None Reported. Allergies Allergen ID Allergen Name Allergen Category Reaction Reaction Severity Criticality Documentation Date Start Date Code Code System Note Provider Name and Address Organization Details Recorded Time 07608 Substance with sulfonami de structure and antibacte rial mechanism of action (substanc e) medicatio n Not available Not available Not available 05/23/2022 29736 8003 SNOMED Liz Farhad null, [place] - [place] 3 08:23:54 92346 acetamino phen / hydrocodo ne medicatio n Not available Not available Not available 05/23/2022 36567 2 RxNorm Liz Farhad null, [place] - [facility] - [place] [facility] [place] 3 08:24:00 36148 fentanyl medicatio n Not available Not available Not available 05/23/2022 4337 RxNorm MARCUS Rodriguez [facility] & [place] 3 08:24:07 93273 acetamino phen / oxycodone medicatio n Not available Not available Not available 05/23/2022 62510 3 RxNorm MARCUS Rodriguez [facility] & [place] 3 08:24:14 27686 Demerol medicatio n Not available Not available Not available 05/23/2022 02550 1 RxNorm MARCUS Rodriguez [facility] & [place] 3 08:24:40 21443 Tylenol medicatio n Not available Not available Not available 05/23/2022 95414 3 RxNorm MARCUS Rodriguez [facility] & [place] 3 08:24:45 00477 hydrocodo ne Not available Not available Not available Not available 05/23/2022 5489 RxNorm MARCUS Rodriguez [facility] & [place] 3 08:24:54 91069 morphine medicatio n Not available Not available Not available 05/23/2022 7052 RxNorm MARCUS Rodriguez [facility] & [place] 3 08:25:00 71802 acetamino phen medicatio n Not available Not available Not available 10/11/2022 161 RxNorm MARCUS Burgos [facility] [place] 3 12:49:18 Medications Name Sig Start Date Stop Date Status Note LastModified by Organization Details LastModified Time losartan 50 mg tablet TAKE ONE TABLET BY MOUTH TWICE A DAY. active Not Available Not Available No t Available cyclobenzap rine 10 mg tablet TAKE 1 TABLET BY MOUTH FOUR TIMES DAILY NEEDED. 10/16 completed Not Available Not Available Not Available amoxicillin 500 mg capsule TAKE (1) CAPSULE BY MOUTH EVERY EIGHT HOURS. 10/16 completed Not Available Not Available Not Available [...] 1 TABLET BY MOUTH ONCE A DAY. 10/16 completed Not Available Not Available Not Available meloxicam 15 mg tablet TAKE 1 TABLET BY MOUTH EACH MORNING 10/16 completed Not Available Not Available Not Available prednisone 20 mg tablet TAKE (1) TABLET BY MOUTH TWICE A DAY. 02/15 completed Not Available Not Available Not Available metoprolol succinate ER 100 mg tablet,exte nded release 24 hr TAKE 1 TABLET BY MOUTH ONCE A DAY. active Not Available Not Available No t Available potassium chloride ER 10 mEq tablet,exte nded release TAKE 1 TABLET BY MOUTH ONCE A DAY. 10/16 completed Not Available Not Available Not Available hydroxyzine HCl 50 mg tablet TAKE 1 TABLET AT BEDTIME NEEDED FOR SLEEP 05/23 completed Not Available Not Available Not Available amlodipine 5 mg tablet TAKE (1) TABLET BY MOUTH TWICE A DAY. 10/16 completed Not Available Not Available Not Available tramadol 50 mg tablet TAKE 1 TABLET BY MOUTH FOUR TIMES DAILY NEEDED FOR BACK PAIN. active Not Available Not Available No t Available ondansetron 8 mg disintegrat ing tablet DISSOLVE 1 TABLET BY MOUTH TWICE DAILY NEEDED FOR NAUSEA active Not Available Not Available No t Available potassium chloride ER 20 mEq tablet,exte nded release(par t/cryst) TAKE (1) TABLET BY MOUTH TWICE A DAY. 10/16 completed Not Available Not Available Not Available famotidine 20 mg tablet TAKE (1) TABLET BY MOUTH TWICE A DAY. active Not Available Not Available No t Available baclofen 10 mg tablet TAKE 1/2 TABLET BY MOUTH 3 TIMES DAILY. active Not Available Not Available No t Available cephalexin 500 mg capsule TAKE 1 CAPSULE BY MOUTH EVERY 12 HOURS 05/23 completed Not Available Not Available Not Available trazodone 150 mg tablet TAKE 1 TABLET BY MOUTH AT BEDTIME FOR INSOMNIA. active Not Available Not Available No t Available esomeprazol e magnesium 40 mg capsule,del ayed release TAKE 1 CAPSULE BY MOUTH TWICE DAILY. active Not Available Not Available No t Available ropinirole 0.5 mg tablet TAKE (1) TABLET BY MOUTH THREE TIMES DAILY NEEDED FOR LEG PAIN. 10/16 completed Not Available Not Available Not Available hydrochloro thiazide 12.5 mg capsule TAKE 1 CAPSULE BY MOUTH EVERY MORNING 02/15 completed Not Available Not Available Not Available gabapentin 300 mg capsule TAKE (1) CAPSULE BY MOUTH THREE TIMES DAILY. 05/23 completed Not Available Not Available Not Available hydroxyzine HCl 25 mg tablet TAKE 2 TABLETS AT BEDTIME NEEDED FOR SLEEP 10/16 completed Not Available Not Available Not Available hydrochloro thiazide 25 mg tablet TAKE (1) TABLET BY MOUTH DAILY NEEDED. 10/16 completed Not Available Not Available Not Available metoprolol succinate ER 25 mg tablet,exte nded release 24 hr TAKE ONE TABLET BY MOUTH ONCE DAILY. 10/16 completed Not Available Not Available Not Available ibuprofen 600 mg tablet TAKE (1) TABLET BY MOUTH THREE TIMES DAILY NEEDED. 10/14 completed Not Available Not Available Not Available ondansetron 4 mg disintegrat ing tablet DISSOLVE 1 TABLET EVERY 8 HOURS NEEDED FOR VOMITING OR NAUSEA 05/23 completed Not Available Not Available Not Available fluticasone propionate 50 mcg/actuati on nasal spray,suspe nsion USE 1 SPRAY IN EACH NOSTRIL ONCE DAILY active Not Available Not Available No t Available sertraline 50 mg tablet TAKE ONE TABLET BY MOUTH AT BEDTIME active Not Available Not Available No t Available doxycycline hyclate 100 mg tablet TAKE 1 TABLET BY MOUTH EVERY 12 HOURS 10/16 completed Not Available Not Available Not Available sulindac 200 mg tablet TAKE (1) TABLET BY MOUTH TWICE A DAY. active Not Available Not Available No t Available loratadine 10 mg tablet TAKE 1 TABLET BY MOUTH ONCE DAILY NEEDED. active Not Available Not Available No t Available metoclopram errol 10 mg tablet TAKE ONE TABLET BY MOUTH EVERY 6 HOURS. active Not Available Not Available No t Available neomycin-po lymyxin-hyd rocort 3.5 mg-10,000 unit/mL-1 % ear drops,susp INSTILL 4 DROPS INTO AFFECTED EAR(S) BY OTIC ROUTE 3 TIMES PER DAY 10/14 completed Not Available Not Available Not Available nitrofurant oin monohydrate /macrocryst als 100 mg capsule TAKE 1 CAPSULE BY MOUTH EVERY 12 HOURS FOR 5 DAYS. active Not Available Not Available No t Available pregabalin 25 mg capsule TAKE 1 CAPSULE BY MOUTH AT BEDTIME. active Not Available Not Available No t Available Antifungal (clotrimazo le) 1 % topical cream APPLY TO AFFECTED AREA EVERY 12 HOURS 05/23 completed Not Available Not Available Not Available cholecalcif duyen (vitamin D3) 1,250 mcg (50,000 unit) capsule TAKE 1 CAPSULE BY MOUTH ONCE A WEEK. 10/16 completed Not Available Not Available Not Available Paxlovid 300 mg (150 mg x 2)-100 mg tablets in a dose pack TAKE 3 TABLETS BY MOUTH FROM YELLOW SIDE IN THE MORNING AND 3 TABLETS IN THE EVENING FROM THE BLUE SIDE FOR 5 DAYS 05/23 completed Not Available Not Available Not Available Vitals Date Recorded Body weight Body temperature Oxygen saturation Oxygen saturation in Arterial blood by Pulse oximetry Heart rate Respiratory rate Systolic blood pressure Diastolic blood pressure Provider Name and Address Organization Details Last Updated DateTime 5 00784.6 1 g 98.1 [degF] 96 % 96 % 82 /min 16 /min 136 mm[Hg] 80 mm[Hg] Lynne Deep [facility] & [place] 5 13:09:01 Date Recorded Body height Body mass index (BMI) Body weight Heart rate Oxygen saturation Oxygen saturation in Arterial blood by Pulse oximetry Body temperature Systolic blood pressure Diastolic blood pressure Provider Name and Address Organization Details Last Updated DateTime 3 167.64 cm 32 kg/m2 45000.7 3 g 76 /min 98 % 98 % 97.6 [degF] 119 mm[Hg] 64 mm[Hg] Liz Llamas [facility] & [place] 3 09:52:55 Date Recorded Body height Oxygen saturation Oxygen saturation in Arterial blood by Pulse oximetry Heart rate Systolic blood pressure Diastolic blood pressure Provider Name and Address Organization Details Last Updated DateTime 3 167.64 cm 99 % 99 % 88 /min 138 mm[Hg] 95 mm[Hg] Rose Marie Centenoley [facility] & [place] 3 13:40:36 Social History Question Answer Notes LastModified by Organizat ion Details LastModified Time Tobacco Smoking Status Former Smoker former 2 PPD x 15 years Crystal Earlywine MARCUS kidd [facility] & [place] 08/11/2022 09:43:18 Do You Have An Advance Directive? No Information not available 08/11/2022 Are You Blind Or Do You Have Difficulty Seeing? No Information not available 08/11/2022 When Did You Quit Smoking? 6-10yearssi ncelastciga rette Quit 2014 [email or web address] Information not available 02/27/2023 What Was The Date Of Your Most Recent Tobacco Screening? 08/08/2022 Information not available 08/11/2022 How Many Years Have You Smoked Tobacco? 15 Information not available 08/11/2022 Sex: Unknown Functional Status None recorded. Mental Status Question Answer Note LastModified by Organization D etails LastModified Time Do you feel stressed (tense, restless, nervous, or anxious, or unable to sleep at night)? [id number] Information not available 08/11/2022 Family History Nothing Reported. Medical History Condition Response Anxiety Disorder Y Other Y Vision or Eye Problems Y Arthritis Y Hypertension Y Ear or Hearing Problems Y Gynecological History Statement/Question Response Abnormal Pap Y Age at Menarche Hysterectomy Date of Last Colonoscopy 2018 04/10/2022 Sexually Active? Y Obstetrics History GPAL:G 0 P 0 0 0 0 Past Encounters Encounter ID Performer Location Encounter Start Date Encounter Closed Date Diagnosis/Indication Diagnosis SNOMED-CT Code Diagnosis ICD10 Code Diagnosis Note [id number] MD [facility] [address] [place] [address] [place] [address] 05/23/2022 08:01:23 05/23/2022 09:08:09 Ventral incisional hernia 748865324 K43.2 small, observatio n for now. If this ever significan tly enlarges or if she has significan tly increased symptoms will have her return to the office for re-evaluat ion. The patient states that she is up-to-date on her colonoscop ies. Obesity 490572195 E66.9 [id number] MD [facility] [address] [place] [address] [address] [place] [address] 08/11/2022 09:17:35 08/11/2022 09:44:41 Obstructive sleep apnea syndrome 22971392 G47.33 [id number] MD QUOC [facility] ALVAREZ [address] [place] [address] 10/17/2022 12:54:10 10/17/2022 13:52:08 Temporomandibular joint disorder 04650182 M26.609 [id number] MD QU[facility] [address] [place] [address] DR ALVAREZ [address] [place] [address] 02/05/2023 11:23:40 02/05/2023 12:05:10 Obstructive sleep apnea syndrome 52523212 G47.33 [id number] MD QUOC [facility] ALVAREZ [address] [place] [address] 11/16/2022 08:53:10 11/16/2022 09:22:50 Bilateral earache 140822938 H92.03 Pain of temporomandibular joint 25538111 M26.629 [id number] Ney Arteaga M.D [facility] Neu[facility] [address],[facility] [address] [place] [address] 11/14/2022 13:53:07 11/14/2022 15:09:29 Bilateral carpal tunnel syndrome 0283192468 9112513 G56.03 Sensory disorder 0502648 8 R20.1 Abnormal sensation 64363 2000 R20.8 [id number] MD [facility]OC [facility] [address] [place] [address],[facility] [address] [place] [address] 11/24/2022 09:29:44 11/24/2022 10:18:03 Abdominal pain 61068298 R10.9 I am not able to appreciate any hernia on today's exam. Gastroesop hageal reflux disease without esophagitis 858899537 K21.9 The patient is being treated with PPI. [id number] MD QUOC [facility] ALVAREZ [address] [place] [address] 02/15/2023 13:09:20 02/15/2023 13:52:37 Pain of temporomandibular joint 45474856 M26.629 Dysphonia 85278509 R49.9 [id number] Deacon Queen MD [facility] [address] [place] [address] [address] [place] [address] 02/27/2023 13:01:04 02/27/2023 13:26:23 Pain of temporomandibular joint 26914242 M26.629 Dysphonia 04811756 R49.9 Gastroesop hageal reflux disease 969826675 K21.9 [id number] LAWRENCE GARRETT [facility] [address] [place] [address] [address] [place] [address] 10/16/2024 12:59:57 10/16/2024 14:11:06 Temporomandibular joint disorder 52576328 M26.609 Health Concerns Section Related Observation LastModified by Organization Detai ls LastModified Time None Recorded Concern Status LastModified by Organization Details LastModified Time None Recorded Advance Directives Directive N: Payers Insurance Date Sequence Insurance Name Policy Number Policy Rao Covered Member ID Rao Member ID Guarantor Name 10/22/2024 1 [facility] (MEDICAID REPLACEMENT - [facility]) Ilda Janet [id number] Ilda Gonzales 10/16/2024 1 [place] [id number] Genia Gonzales [id number] Ilda Gonzales 02/06/2023 1 [place] [facility] (HMO) Genia Gonzales [id number] Ilda Gonzales 02/06/2023 1 [place] [id number] Ilda Gonzales [id number] Ilda Gonzales Notes Date Note Type Note Provider Name and Address Organization Details Recorded Time 11/24/2022 text/html Ilda is a 47-year-old woman who complains of nausea, reflux and occasional mid abdominal pain. She does take a PPI. I had seen her in May of this year for a possible umbilical hernia. She is status post laparoscopic cholecystectomy. Rizwan Macdonald MD [address] [place] [address],[address], [place], [address], [facility] & [place] 11/24/2022 10:16:09 02/05/2023 text/html Please disregard this [...] Dr. Queen ear nose and throat for hoarseness.47-year- old female with history of snoring and fatigue. [...] primary care provider in April of this 2022 for a low-dose CT scan of chest, as a low-dose CT scan chest may poultry picking machine tender in early lung cancer, and/or other lung disorders and result in improved survival/ may be life-saving for her, she voiced understanding and again stated she will follow-up with Clint Trimble concerning this low dose CT of the chest. She works at [employer]. She sleeps 8 or 9 hours a night and still does not wake up feeling rested. Toney of 10. She had a home sleep [...] interactions with all of the prescribed and [id number] medications with a pharmacist, she again voiced understanding. The patient was instructed to go to ER if the patient does not improve or worsens, she again voiced understanding. Rip Carl MD [address] [place] [address],[address], [place], [address], [place] - [facility] - [place] & [place] 02/05/2023 12:15:18 02/15/2023 text/html Patient is here for follow up on tmj, states she had shots in her jaw for the tmj yesterday and that was her first shot. Patient presents for evaluation management of some dysphonia. Patient had TMJ injected yesterday and has considerable amount of soreness right face. Deacon Queen MD [address] [place] [address],[address], [place], [address], [facility] - [facility] - [place] [facility] & [place] 02/15/2023 13:56:29 02/27/2023 text/html Patient is here for follow up, denies any complications. Patient presents for evaluation and management of dysphonia Deacon Queen MD [address] [place] [address],[address], [place], [address], [place] - [facility] - [facility] & [place] 02/27/2023 13:34:06 10/16/2024 text/html 49 yo female in today for f/u r/t TMJ pain. Pain is rated at 0/10, and has gotten up to 8/10 (when eating) in the last month. She describes pain as frequent, dull, throbbing. makes pain worse, makes it better. Pain radiates to the right side of pt's face and up into her ear. Does not cause loss of bowel or bladder. Patient is interested in having a TMJ steroid injection. Patient just recently had bilateral cortisone hip injections at [facility] pain clinic. Pain level at rest: 0/10Pain level w/activity: 8/10Feeling down depressed or hopeless: noAre you having little interest or pleasure in doing things: noHave you had any falls with injury in the past year: had a fall in July but only scraped her kneeDo you use any illicit or recreation drugs: noDo you or have you ever smoked tobacco: yes- currentWhat is your level of alcohol consumption: none GUZMAN ZULETA, LAWRENCE [address] [facility] , [place], [address], [facility] - [place] - [place] & [place] 10/16/2024 15:35:51 OBGyn Episode No OBEpisode recorded.
--- OUTSIDE RECORDS SUMMARY | 2024-10-29 13:55 | XMS_ITS | Clinical Summary ---
Author Organization [employer] Address [address] [place] [address] Care Team Providers Care Ivory Polisher Name Role Phone Bennie Arauz MD Primary Care Provider [phone] Allergies Active Allergy Reactions Criticality Noted Date [...] wall of right acetabulum, initial encounter 09/05/2022 Family History Medical History Relation Name Comments Cancer Other High blood pressure Other Seizures Other Relation Name Status Comments Other Social History Tobacco Use Types Packs/Day Years [...] Date Jeremie rded Speak language other than Estonian at home Not on file 05/20/2023 Want [...] 11/15/2023 1:42 PM EDT Plan of Treatment Health Maintenance Due Date Last Done Comments CT Colonography 1973 Colonoscopy 1973 Colorectal Cancer Screening 1973 FOBT/FIT 1973 Fit-DNA (Cologuard) 1973 Sigmoidoscopy 1973 Depression Screening (12+) 1985 Tobacco Cessation Counseling and Screening (12+) 1985 HIV Screening 1988 Hepatitis C Screening 1991 Pap Smear 1994 Lipid Panel 2018 Shingles Vaccine (Zoster) (1 of 2) 2023 COVID-19 VACCINE (7 - 2023-2 5 season) 2024 02/22/2023, 05/09/2022, 05/09/2022, Additional history exists Breast Cancer Screening 01/21/2024 01/20/2022, 10/01 Influenza Vaccine (Season Ended) 2025 05/15/2023, 09/10/2020, 03/19/2019, Additional history exists Pneumococcal 50+ years (3 of 3 - PCV20 or PCV21) 09/10/2025 09/10/2020, 03/18/2018 DTAP/TDAP/TD VACCINES (2 - T d or Tdap) 03/19/2029 03/19/2019 Insurance [facility] Care Teams Ivory Polisher Relationship Specialty Start Date End Date Bennie Arauz MD [address] [place] [id number] PCP - General Orthopedic Surgery 06/23/23
--- OUTSIDE RECORDS SUMMARY | 2024-10-29 13:55 | XMS_ITS | Continuity of Care Document ---
Author Organization [facility] & [place], [facility] Address [address] [address] Assessment No assessment recorded. Plan of Treatment Reminders Order Date Submit Date Provider Last Modified By Organization Details Last Modified Time Details Appointments None recorded. Lab drug screen, urine - can be urine or bloody LC [id number] [facility] 2024 025 [facility] (Registration ), [address] [place], [address], 5 14:11:07 Referral None recorded. Procedures None recorded. Surgeries None recorded. Imaging None recorded. Medication Orders None recorded. Patient TargetsNo targets recorded. Patient Instructions Encounter Date Encounter Id Patient Instructions Last Modified By Organization Details Last Modified Time 10/16/2024 [id number] TMJ injection pe r Dr. Au 11/12/24 [id number] Not available 10/16/2024 15:34:22 Reason for Referral None Reported. Problems Name Problem SNOMED Code Status Onset Date Resolution Date Notes Provider Name and Address Organization Details Recorded Time Obstructive sleep apnea syndrome 58650143 Active 2022 Rip Carl MD [address] [facility] [address], [place], [address] [place] [address] [facility] & [place] 3 07:18:56 Essential hypertension 42878756 Active 2022 [facility]idd, [facility] & [place] 3 12:50:26 Hoarse 97555259 Active 2022 Rip Carl MD [address] [facility],[address], [place], [address], [place] - [facility] - [place] & [place] 11:56:15 Problem Notes None recorded. Procedures Surgical History Date Name Laterality Status Provider Name and Address Organization Details Recorded Time 11/15/19 23 EMG/ Nerve Conduction Study completed Ney Arteaga M.D [address] [place] [address], [address], [place], [address], [place] - [facility] - [place] & [place] 11/18/2022 16:56:24 04/10/20 22 completed Crystal Earlywine [place] - [facility] - [place] & [place] 08/11/2022 09:33:49 04/17/20 18 Date of Last Colonoscopy completed Crystal Earlywine [place] - [facility] - [place] & [place] 08/11/2022 09:33:49 cholecystectomy completed Liz Llamas [place] - [facility] - [place] & [place] 05/23/2022 08:27:30 hysterectomy completed Liz Llamas [place] - [facility] - [place] & [place] 05/23/2022 08:27:41 laparoscopy completed Liz Llamas [place] - L [facility] - [place] & [place] 05/23/2022 08:27:48 Other completed Crystal Earlywine [place] - [facility] - [place] & [place] 08/11/2022 09:33:50 Imaging Results None recorded. Procedure Notes None recorded. Medical Equipment None Reported. Allergies Allergen ID Allergen Name Allergen Category Reaction Reaction Severity Criticality Documentation Date Start Date Code Code System Note Provider Name and Address Organization Details Recorded Time 75590 Substance with sulfonami de structure and antibacte rial mechanism of action (substanc e) medicatio n Not available Not available Not available 05/23/2022 93587 8003 SNOMED Liz kidd, [place] - [facility] - [place] & [place] 08:23:54 67560 acetamino phen / hydrocodo ne medicatio n Not available Not available Not available 05/23/2022 01987 2 RxNorm Liz Llamas null, [place] - [facility] - [place] & [place] 3 08:24:00 06896 fentanyl medicatio n Not available Not available Not available 05/23/2022 4337 RxNorm MARCUS Rodriguez [facility] & [place] 3 08:24:07 74446 acetamino phen / oxycodone medicatio n Not available Not available Not available 05/23/2022 39587 3 RxNorm MARCUS Rodriguez [facility] & [place] 3 08:24:14 85484 Demerol medicatio n Not available Not available Not available 05/23/2022 76559 1 RxNorm MARCUS Rodriguez - [place] & [place] 3 08:24:40 45186 Tylenol medicatio n Not available Not available Not available 05/23/2022 40858 3 RxNorm MARCUS Rodriguez [facility] & [place] 3 08:24:45 50362 hydrocodo ne Not available Not available Not available Not available 05/23/2022 5489 RxNorm MARCUS Rodriguez [facility] & [place] 3 08:24:54 68155 morphine medicatio n Not available Not available Not available 05/23/2022 7052 RxNorm MARCUS Rodriguez [facility] & [place] 3 08:25:00 33817 acetamino phen medicatio n Not available Not available Not available 10/11/2022 161 RxNorm MARCUS Burgos [facility] & [place] 3 12:49:18 Medications Name Sig Start Date [...] Address Organization Details Last Updated DateTime 5 71612.6 1 g 98.1 [degF] 96 % 96 % 82 /min 16 /min 136 mm[Hg] 80 mm[Hg] Lynne Hoodd MARCUS Morris [facility] & [place] 5 13:09:01 Social History Question Answer Notes LastModified by Organizat ion Details LastModified Time Tobacco Smoking Status Former Smoker former 2 PPD x 15 years Crystal Earlylynne kidd, [facility] [place] 08/11/2022 09:43:18 Do You Have An Advance Directive? No Information not available 08/11/2022 Are You Blind Or Do You Have Difficulty Seeing? No Information not available 08/11/2022 When Did You Quit Smoking? 6-10yearssi ncelastciga rette Quit 2014 [email or web address] Information not available 02/27/2023 What Was The [...] anxious, or unable to sleep at night)? [id number] Information not available 08/11/2022 Family History Nothing [...] SNOMED-CT Code Diagnosis ICD10 Code Diagnosis Note [id number] LAWRENCE GARRETT [facility] [address] [address] 10/16/2024 12:59:57 10/16/2024 14:11:06 Temporomandibular joint disorder 92550717 M26.609 Health Concerns Section Related Observation LastModified by Organization Detai ls LastModified Time None Recorded Concern Status LastModified by Organization Details LastModified Time None Recorded Payers Encounter Date Sequence Insurance Name Policy Number Policy Rao Covered Member ID Rao Member ID Guarantor Name 10/16/2024 1 [facility] (MEDICAID REPLACEMENT - HMO) Ilda Gonzales [id number] Ilda Gonzales Notes Date Note Type Note Provider Name and Address Organization Details Recorded Time 10/16/2024 text/html 49 yo female in today [...] recently had bilateral cortisone hip injections at [facility] pain clinic. Pain level at rest: [...] alcohol consumption: none GUZMAN ZULETA, LAWRENCE [address] [facility] , [place], [address], [facility] - [place] - [place] & [place] 10/16/2024 15:35:51 OBGyn Episode No OBEpisode recorded.
--- OUTSIDE RECORDS SUMMARY | 2024-10-29 13:56 | XMS_ITS | Data Portability ---
Author Organization [facility] Address [address] [place] [address] Assessment No assessment recorded. Plan of Treatment Reminders Order Date Submit Date Provider Last Modified By Organization Details Last Modified Time Details Appointments None recorded. Lab urinalysis , [facility] [address] [facility] [address] [facility], [address], [place], [address], 5 15:24:18 culture, urine 2024 025 [facility], [address], [address], [place], [address], 5 22:10:45 rapid [facility] (A+B) [facility] [address], [place], [address], 5 08:50:49 TSH + free T4, serum 2024 025 [facility], [address], [address], [place], [address], 5 08:29:38 CMP, serum or plasma 2024 025 [facility], [address], [address], [place], [address], 5 08:29:40 vitamin D, 25-hydroxy , total, serum 2024 025 [facility], [address], [address], [place], [address], 5 08:29:42 CBC w/ auto diff 2024 025 [facility], [address], [place] [address], [place], [address], 5 08:29:39 lipid panel, serum 2024 025 [facility], [address], [address], [place], [address], 5 08:29:41 cobalamin and folate panel, serum 2024 025 [facility], [address], [address], [place], [address], 5 08:29:42 unlisted lab - toxassure flex 22, urine 2024 025 [facility], [address], [address], [place], [address], 5 09:07:36 unlisted lab - compliance drug suzi, no THC 2023 024 [facility], [address], [place] [address], [place], [address], 4 20:09:35 Referral neurologis t referral 2024 025 [facility], [address] [place] [address], [place], [address], 5 14:26:55 Procedures None recorded. Surgeries None recorded. Imaging None recorded. Medication Orders nitrofuran toin monohydrat e/macrocry stals 100 mg capsule 2024 025 [facility], [address] [place], [address], 5 13:18:41 fluticason e propionate 50 mcg/actuat ion nasal spray,susp ension 2024 025 [facility], [address] [place], [address], 5 11:14:26 amoxicilli n 500 mg capsule 2024 025 [facility], [address] [place], [address], 5 15:10:51 trazodone 150 mg tablet 2024 025 [facility], [address] [place], [address], 5 11:14:11 tramadol 50 mg tablet 2024 025 [facility], [address] [place], [address], 5 16:29:01 tramadol 50 mg tablet 2023 024 [facility], [address] [place], [address], 4 14:24:50 Patient TargetsNo targets recorded. Patient Instructions Encounter Date Encounter Id Patient Instructions Last Modified By Organization Details Last Modified Time 12/28/2023 [id number] Plan: - eKasper was appropriate and verified. - RTC if s/sx persist or worsen. [email or web address] Not available 12/28/2023 09:39:34 06/11/2024 [id number] insomnia: care instructions [email or web address] Not available 06/11/2024 10:48:05 Plan: - eKasper was appropriate and verified. - RTC if s/sx persist or worsen. [email or web address] Not available 06/11/2024 11:11:01 07/29/2024 [id number] allergies: care instructions [email or web address] Not available 07/29/2024 08:50:49 Acute Sinusitis: Care Instructions [email or web address] Not available 07/29/2024 08:50:49 Plan: - RTC if s/sx persist or worsen. [email or web address] Not available 07/29/2024 09:21:28 08/28/2024 [id number] painful urinatio n (dysuria): care instructions Not available 08/28/2024 15:24:17 body mass index: care instructions Not available 08/28/2024 15:31:48 learning about healthy weight Not available 08/28/2024 15:31:48 learning about healthy weight Not available 08/28/2024 15:31:48 Reassured her that her urine specimen did not have blood in it. Will go ahead and culture and give macrobid. Feel blood is vaginal most likely r/t painful intercourse. We discussed using MARCUS bone and I instructed her on how to use. Would recommend MANAGER REPORTING referral. She is willing to see Ingrid. Follow up as needed. The patient will report any new or worsening symptoms. The patient will return to clinic if new or worsening symptoms are noted, or if if the symptoms do not resolve. If marked worsening of the symptoms is noted the patient will go to the emergency department of their choice. Not available 08/28/2024 15:31:10 10/27/2024 [id number] Plan: - Her next Pain Management appt is October - RTC if s/sx persist or worsen. [email or web address] Not available 10/27/2024 14:26:53 Reason for Referral Neurologist Referral for Num bness of lower limb Referring Physician: Godfrey Trimble, Family Medicine, Encounter Date: 10/27/2024 Results Created Date Observation Date Name Description Value Unit Range Abnormal Flag Note LastModifiedBy Organization Detail LastModifiedTime 12/28/19 24 01/04/2024 COMPL IANCE DRUG SUZI , NO THC summary report (summary) FINAL ===== ===== ===== ===== ===== ===== ===== ===== ===== ===== ===== ===== ===== === TOXAS SURE COMP DRUG SUZI SIS,N O THC,U R ===== ===== ===== ===== ===== ===== ===== ===== ===== ===== ===== ===== ===== === Test Resul t Flag Units Drug Prese nt Trama dol 1169 ng/mg creat O-Latha methy ltram adol 1490 ng/mg creat N-Latha methy ltram adol 1045 ng/mg creat Sourc e of trama dol is a presc ripti on medic ation . O-latha methy ltram adol and N-latha methy ltram adol are expec kelby metab olite s of trama dol. Cyclo benza jodi PRESE NT Desme thylc yclob enzap rine PRESE NT Desme thylc yclob enzap rine is an expec kelby metab olite of cyclo benza jodi . Metop rolol PRESE NT ===== ===== ===== ===== ===== ===== ===== ===== ===== ===== ===== ===== ===== === Test Resul t Flag Units Ref Range Creat inine 125 mg/dL >=20 ===== ===== ===== ===== ===== ===== ===== ===== ===== ===== ===== ===== ===== === Decla red Medic ation s: Medic ation list was not provi ded. ===== ===== ===== ===== ===== ===== ===== ===== ===== ===== ===== ===== ===== === For clini sandhya consu ltati on, pleas e call . ===== ===== ===== ===== ===== ===== ===== ===== ===== ===== ===== ===== ===== === Not Available [facility] ([facility]) [address] [place], [address], 01/04/2024 20:09:35 12/28/19 24 01/04/2024 COMPL IANCE DRUG SUZI , NO THC pdf . Not Available [facility] ([facility]) [address] [place], [address], 01/04/2024 20:09:35 06/11/19 25 06/15/2024 TOXAS SURE FLEX 22, URINE summary report FINAL ===== ===== ===== ===== ===== ===== ===== ===== ===== ===== ===== ===== ===== === ToxAs sure Flex 22, Urine ===== ===== ===== ===== ===== ===== ===== ===== ===== ===== ===== ===== ===== === Test Resul t Flag Units NO DRUGS DETEC KELBY. ===== ===== ===== ===== ===== ===== ===== ===== ===== ===== ===== ===== ===== === Test Resul t Flag Units Ref Range Creat inine 38 mg/dL >=20 ===== ===== ===== ===== ===== ===== ===== ===== ===== ===== ===== ===== ===== === Decla red Medic ation s: Medic ation list was not provi ded. ===== ===== ===== ===== ===== ===== ===== ===== ===== ===== ===== ===== ===== === For clini sandhya consu ltati on, pleas e call . ===== ===== ===== ===== ===== ===== ===== ===== ===== ===== ===== ===== ===== === Not Available [facility] ([facility]) [address] [place], [address], 06/15/2024 09:07:35 06/11/19 25 06/15/2024 TOXAS SURE FLEX 22, URINE pdf . Not Available [facility] ([facility]) [address] [place], [address], 06/15/2024 09:07:35 06/11/19 25 06/15/2024 TOXAS SURE FLEX 22, URINE creatinine 38 mg/dL REFER ENCE RANGE : Ref Range >=20 Not Available [facility] ([facility]) [address] [place], [address], 06/15/2024 09:07:35 06/11/19 25 06/15/2024 TOXAS SURE FLEX 22, URINE amphetamines ia Negati ve NG/mL cutoff :300 Not Available [facility] ([facility] [address] [place], [address], 06/15/2024 09:07:35 06/11/19 25 06/15/2024 TOXAS SURE FLEX 22, URINE benzodiazepi coby Negati ve Not Available [facility] ([facility]) [address] [facility], [place], [address], 06/15/2024 09:07:35 06/11/19 25 06/15/2024 TOXAS SURE FLEX 22, URINE diazepam Not Detect ed NG/mg _crea t Not Available [facility] ([facility]) [address] [place], [address], 06/15/2024 09:07:35 06/11/19 25 06/15/2024 TOXAS SURE FLEX 22, URINE desmethyldia zepam Not Detect ed NG/mg _crea t Not Available [facility] ([facility]) [address] [facility], [place], [address], 06/15/2024 09:07:35 06/11/19 25 06/15/2024 TOXAS SURE FLEX 22, URINE oxazepam Not Detect ed NG/mg _crea t Not Available [facility] ([facility]) [address] [facility], [place], [address], 06/15/2024 09:07:35 06/11/19 25 06/15/2024 TOXAS SURE FLEX 22, URINE temazepam Not Detect ed NG/mg _crea t Expec kelby metab olism of benzo diaze pine class drugs : Paren t Drug Detec kelby Metab olite s ----- ----- - ----- ----- ----- ----- Diaze samra: Desme thyld iazep am, Temaz epam, Oxaze samra Chlor diaze poxid e: Desme thyld iazep am, Oxaze samra Clora zepat e: Desme thyld iazep am, Oxaze samra Halaz epam: Desme thyld iazep am, Oxaze samra Temaz epam: Oxaze samra Oxaze samra: None Not Available [facility] ([facility]) [address] [facility], [place], [address], 06/15/2024 09:07:35 06/11/19 25 06/15/2024 TOXAS SURE FLEX 22, URINE alprazolam Not Detect ed NG/mg _crea t Not Available [facility] ([facility]) [address] [place], [address], 06/15/2024 09:07:35 06/11/19 25 06/15/2024 TOXAS SURE FLEX 22, URINE alpha-hydrox yalprazolam Not Detect ed NG/mg _crea t Not Available [facility] ([facility] [address] [place], [address], 06/15/2024 09:07:35 06/11/19 25 06/15/2024 TOXAS SURE FLEX 22, URINE desalkylflur azepam Not Detect ed NG/mg _crea t Not Available [facility] ([facility]) [address] [place], [address], 06/15/2024 09:07:35 06/11/19 25 06/15/2024 TOXAS SURE FLEX 22, URINE lorazepam Not Detect ed NG/mg _crea t Not Available [facility] ([facility] [address] [place], [address], 06/15/2024 09:07:35 06/11/19 25 06/15/2024 TOXAS SURE FLEX 22, URINE alpha-hydrox ytriazolam Not Detect ed NG/mg _crea t Not Available [facility] ([facility] [address] [place], [address], 06/15/2024 09:07:35 06/11/19 25 06/15/2024 TOXAS SURE FLEX 22, URINE clonazepam Not Detect ed NG/mg _crea t Not Available [facility] ([facility] [address] [place], [address], 06/15/2024 09:07:35 06/11/19 25 06/15/2024 TOXAS SURE FLEX 22, URINE 7-aminoclona zepam Not Detect ed NG/mg _crea t Not Available [facility] ([facility] [address] [place], [address], 06/15/2024 09:07:35 06/11/19 25 06/15/2024 TOXAS SURE FLEX 22, URINE midazolam Not Detect ed NG/mg _crea t Not Available [facility] ([facility]) [address] [place], [address], 06/15/2024 09:07:35 06/11/19 25 06/15/2024 TOXAS SURE FLEX 22, URINE alpha-hydrox ymidazolam Not Detect ed NG/mg _crea t Not Available [facility] ([facility]) [address] [place], [address], 06/15/2024 09:07:35 06/11/19 25 06/15/2024 TOXAS SURE FLEX 22, URINE flunitrazepa m Not Detect ed NG/mg _crea t Not Available [facility] ([facility] [address] [place], [address], 06/15/2024 09:07:35 06/11/19 25 06/15/2024 TOXAS SURE FLEX 22, URINE desmethylflu nitrazepam Not Detect ed NG/mg _crea t Not Available [facility] ([facility] [address] [place], [address], 06/15/2024 09:07:35 06/11/19 25 06/15/2024 TOXAS SURE FLEX 22, URINE cocaine metabolite ia Negati ve NG/mL cutoff :150 Not Available [facility] ([facility] [address] [place], [address], 06/15/2024 09:07:35 06/11/19 25 06/15/2024 TOXAS SURE FLEX 22, URINE ethyl alcohol enzymatic Negati ve g/dL cutoff :0.020 Not Available [facility] ([facility] [address] [place], [address], 06/15/2024 09:07:35 06/11/19 25 06/15/2024 TOXAS SURE FLEX 22, URINE ethanol biomarkers ia Negati ve NG/mL cutoff :500 Not Available [facility] ([facility] [address] [place], [address], 06/15/2024 09:07:35 06/11/19 25 06/15/2024 TOXAS SURE FLEX 22, URINE 6-acetylmorp andres ia Negati ve NG/mL cutoff :10 Not Available [facility] ([facility] [address] [place], [address], 06/15/2024 09:07:35 06/11/19 25 06/15/2024 TOXAS SURE FLEX 22, URINE opiate class ia Negati ve NG/mL cutoff :100 Not Available [facility] ([facility] [address] [place], [address], 06/15/2024 09:07:35 06/11/19 25 06/15/2024 TOXAS SURE FLEX 22, URINE oxycodone class ia Negati ve NG/mL cutoff :100 Not Available [facility] ([facility] [address] [place], [address], 06/15/2024 09:07:35 06/11/19 25 06/15/2024 TOXAS SURE FLEX 22, URINE methadone ia Negati ve NG/mL cutoff :100 Not Available [facility] ([facility] [address] [place], [address], 06/15/2024 09:07:35 06/11/19 25 06/15/2024 TOXAS SURE FLEX 22, URINE methadone mtb ia Negati ve NG/mL cutoff :100 Not Available [facility] ([facility] [address] [place], [address], 06/15/2024 09:07:35 06/11/19 25 06/15/2024 TOXAS SURE FLEX 22, URINE buprenorphin e Negati ve Not Available [facility] ([facility] [address] [place], [address], 06/15/2024 09:07:35 06/11/19 25 06/15/2024 TOXAS SURE FLEX 22, URINE buprenorphin e Not Detect ed NG/mg _crea t Not Available [facility] ([facility] [address] [place], [address], 06/15/2024 09:07:35 06/11/19 25 06/15/2024 TOXAS SURE FLEX 22, URINE norbuprenorp andres Not Detect ed NG/mg _crea t Not Available [facility] ([facility] [address] [place], [address], 06/15/2024 09:07:35 06/11/19 25 06/15/2024 TOXAS SURE FLEX 22, URINE fentanyl / analogues Negati ve Not Available [facility] ([facility] [address] [place], [address], 06/15/2024 09:07:35 06/11/19 25 06/15/2024 TOXAS SURE FLEX 22, URINE fentanyl Not Detect ed NG/mg _crea t Not Available [facility] ([facility] [address] [place], [address], 06/15/2024 09:07:35 06/11/19 25 06/15/2024 TOXAS SURE FLEX 22, URINE norfentanyl Not Detect ed NG/mg _crea t Not Available [facility] ([facility] [address] [place], [address], 06/15/2024 09:07:35 06/11/19 25 06/15/2024 TOXAS SURE FLEX 22, URINE tapentadol ia Negati ve NG/mL cutoff :200 Not Available [facility] ([facility] [address] [place], [address], 06/15/2024 09:07:35 06/11/19 25 06/15/2024 TOXAS SURE FLEX 22, URINE meperidine ia Negati ve NG/mL cutoff :200 Not Available [facility] ([facility] [address] [place], [address], 06/15/2024 09:07:35 06/11/19 25 06/15/2024 TOXAS SURE FLEX 22, URINE propoxyphene ia Negati ve NG/mL cutoff :300 Not Available [facility] ([facility] [address] [place], [address], 06/15/2024 09:07:35 06/11/19 25 06/15/2024 TOXAS SURE FLEX 22, URINE tramadol ia Negati ve NG/mL cutoff :200 Not Available [facility] ([facility] [address] [place], [address], 06/15/2024 09:07:35 06/11/19 25 06/15/2024 TOXAS SURE FLEX 22, URINE barbiturates ia Negati ve NG/mL cutoff :200 Not Available [facility] ([facility] [address] [place], [address], 06/15/2024 09:07:35 06/11/19 25 06/15/2024 TOXAS SURE FLEX 22, URINE other hallucinogen s Negati ve Not Available [facility] ([facility] [address] [place], [address], 06/15/2024 09:07:35 06/11/19 25 06/15/2024 TOXAS SURE FLEX 22, URINE ketamine Not Detect ed Not Available [facility] ([facility] [address] [place], [address], 06/15/2024 09:07:35 06/11/19 25 06/15/2024 TOXAS SURE FLEX 22, URINE norketamine Not Detect ed Not Available [facility] ([facility] [address] [place], [address], 06/15/2024 09:07:35 06/11/19 25 06/15/2024 TOXAS SURE FLEX 22, URINE phencyclidin e ia Negati ve NG/mL cutoff :25 Not Available [facility] ([facility] [address] [place], [address], 06/15/2024 09:07:35 06/11/19 25 06/15/2024 TOXAS SURE FLEX 22, URINE gabapentin ia Negati ve ug/mL cutoff :1.0 Not Available [facility] ([facility] [address] [place], [address], 06/15/2024 09:07:35 06/11/19 25 06/15/2024 TOXAS SURE FLEX 22, URINE carisoprodol ia Negati ve NG/mL cutoff :100 Not Available [facility] ([facility] [address] [place], [address], 06/15/2024 09:07:35 06/11/19 25 06/15/2024 TOXAS SURE FLEX 22, URINE sedative/hyp notics Negati ve Not Available [facility] ([facility] [address] [place], [address], 06/15/2024 09:07:35 06/11/19 25 06/15/2024 TOXAS SURE FLEX 22, URINE zolpidem Not Detect ed Not Available [facility] ([facility] [address] [place], [address], 06/15/2024 09:07:35 06/11/19 25 06/15/2024 TOXAS SURE FLEX 22, URINE zolpidem acid Not Detect ed Not Available [facility] ([facility] [address] [place], [address], 06/15/2024 09:07:35 06/11/19 25 06/15/2024 TOXAS SURE FLEX 22, URINE zopiclone/es zopiclone Not Detect ed Not Available [facility] ([facility] [address] [place], [address], 06/15/2024 09:07:35 06/11/19 25 06/15/2024 TOXAS SURE FLEX 22, URINE amino chloropyridi ne Not Detect ed Not Available [facility] ([facility] [address] [place], [address], 06/15/2024 09:07:35 06/11/19 25 06/15/2024 TOXAS SURE FLEX 22, URINE zaleplon Not Detect ed Expec kelby metab olism of Sedat peter/ Hypno tics: Paren t Drug Detec kelby Metab olite s ----- ----- - ----- ----- ----- ----- Zolpi dem: Zolpi dem Acid Zopic lone/ Eszop iclon e: Amino Chlor opyri dine Zalep juventino: None Not Available [facility] ([facility] [address] [place], [address], 06/15/2024 09:07:35 06/11/19 25 06/15/2024 TOXAS SURE FLEX 22, URINE acetaminophe n ia Negati ve ug/mL cutoff :5.0 Not Available [facility] ([facility] [address] [place], [address], 06/15/2024 09:07:35 06/11/19 25 06/15/2024 TOXAS SURE FLEX 22, URINE miscellaneou s Negati ve Not Available [facility] ([facility] [address] [place], [address], 06/15/2024 09:07:35 06/11/19 25 06/15/2024 TOXAS SURE FLEX 22, URINE dextromethor brooks Not Detect ed Not Available [facility] ([facility] [address] [place], [address], 06/15/2024 09:07:35 06/11/19 25 06/15/2024 TOXAS SURE FLEX 22, URINE dextrorphan/ levorphanol Not Detect ed Expec kelby metab olism of Dextr ometh orpha n and Dextr orpha n/Lev orpha nol: Paren t Drug Detec kelby Metab olite s ----- ----- - ----- ----- ----- ----- Dextr ometh orpha n: Dextr orpha n Dextr orpha n/Lev orpha nol: None Dextr ophan canno t be disti nguis hed from Levor phano l by the metho d used for suzi sis. Not Available [facility] ([facility] [address] [facility], [place], [address], 06/15/2024 09:07:35 07/30/19 25 07/30/2024 TSH+F REE T4 TSH 1.030 uIU/m L 0.450- 4.500 normal Not Available [facility] ([facility] [address] [place], [address], 07/30/2024 08:29:38 07/30/19 25 07/30/2024 TSH+F REE T4 T4,free(dire ct) 1.13 NG/dL 0.82-1 .77 normal Not Available [facility] ([facility] [address] [place], [address], 07/30/2024 08:29:38 07/30/19 25 07/30/2024 CBC WITH DIFFE RENTI AL/PL ATELE T WBC 5.0 x10e3 /uL 3.4-10 .8 normal Not Available [facility] ([facility] [address] [facility], [place], [address], 07/30/2024 08:29:39 07/30/1907/30/2024 CBC WITH DIFFE RENTI AL/PL ATELE T RBC 4.23 x10e6 /uL 3.77-5 .28 normal Not Available [facility] ([facility] [address] [place], [address], 07/30/2024 08:29:39 07/30/1907/30/2024 CBC WITH DIFFE RENTI AL/PL ATELE T hemoglobin 13.0 g/dL 11.1-1 5.9 normal Not Available [facility] ([facility] [address] [place], [address], 07/30/2024 08:29:39 07/30/1907/30/2024 CBC WITH DIFFE RENTI AL/PL ATELE T hematocrit 40.6 % 34.0-4 6.6 normal Not Available [facility] ([facility] [address] [place], [address], 07/30/2024 08:29:39 07/30/1907/30/2024 CBC WITH DIFFE RENTI AL/PL ATELE T MCV 96 fL 79-97 normal Not Available [facility] ([facility] [address] [place], [address], 07/30/2024 08:29:39 07/30/1907/30/2024 CBC WITH DIFFE RENTI AL/PL ATELE T MCH 30.7 pg 26.6-3 3.0 normal Not Available [facility] ([facility] [address] [place], [address], 07/30/2024 08:29:39 07/30/19 25 07/30/2024 CBC WITH DIFFE RENTI AL/PL ATELE T MCHC 32.0 g/dL 31.5-3 5.7 normal Not Available [facility] ([facility] [address] [facility], [place], [address], 07/30/2024 08:29:39 07/30/1907/30/2024 CBC WITH DIFFE RENTI AL/PL ATELE T RDW 14.6 % 11.7-1 5.4 Not Available [facility] ([facility] [address] [facility], [place], [address], 07/30/2024 08:29:39 07/30/1907/30/2024 CBC WITH DIFFE RENTI AL/PL ATELE T platelets 286 x10e3 /uL 150-45 0 normal Not Available [facility] ([facility] [address] [facility], [place], [address], 07/30/2024 08:29:39 07/30/1907/30/2024 CBC WITH DIFFE RENTI AL/PL ATELE T neutrophils 63 % not estab. normal Not Available [facility] ([facility] [address] [facility], [place], [address], 07/30/2024 08:29:39 07/30/1907/30/2024 CBC WITH DIFFE RENTI AL/PL ATELE T lymphs 22 % not estab. normal Not Available [facility] ([facility] [address] [facility], [place], [address], 07/30/2024 08:29:39 07/30/1907/30/2024 CBC WITH DIFFE RENTI AL/PL ATELE T monocytes 11 % not estab. normal Not Available [facility] ([facility] [address] [facility], [place], [address], 07/30/2024 08:29:39 07/30/1907/30/2024 CBC WITH DIFFE RENTI AL/PL ATELE T eos 4 % not estab. normal Not Available [facility] ([facility] [address] [facility], [place], [address], 07/30/2024 08:29:39 07/30/1907/30/2024 CBC WITH DIFFE RENTI AL/PL ATELE T basos 0 % not estab. normal Not Available [facility] ([facility] [address] [facility], [place], [address], 07/30/2024 08:29:39 07/30/1907/30/2024 CBC WITH DIFFE RENTI AL/PL ATELE T immature cells POT PULLER Not Available [facility] ([facility] [address] [place], [address], 07/30/2024 08:29:39 07/30/1907/30/2024 CBC WITH DIFFE RENTI AL/PL ATELE T neutrophils (absolute) 3.1 x10e3 /uL 1.4-7. 0 normal Not Available [facility] ([facility] [address] [place], [address], 07/30/2024 08:29:39 07/30/1907/30/2024 CBC WITH DIFFE RENTI AL/PL ATELE T lymphs (absolute) 1.1 x10e3 /uL 0.7-3. 1 normal Not Available [facility] ([facility] [address] [place], [address], 07/30/2024 08:29:39 07/30/1907/30/2024 CBC WITH DIFFE RENTI AL/PL ATELE T monocytes(ab solute) 0.6 x10e3 /uL 0.1-0. 9 normal Not Available [facility] ([facility] [address] [place], [address], 07/30/2024 08:29:39 07/30/19 25 07/30/2024 CBC WITH DIFFE RENTI AL/PL ATELE T eos (absolute) 0.2 x10e3 /uL 0.0-0. 4 normal Not Available [facility] ([facility] [address] [facility], [place], [address], 07/30/2024 08:29:39 07/30/1907/30/2024 CBC WITH DIFFE RENTI AL/PL ATELE T baso (absolute) 0.0 x10e3 /uL 0.0-0. 2 normal Not Available [facility] ([facility] [address] [facility], [place], [address], 07/30/2024 08:29:39 07/30/1907/30/2024 CBC WITH DIFFE RENTI AL/PL ATELE T immature granulocytes 0 % not estab. Not Available [facility] ([facility][1] Lab) [address] [facility], [place], [address], 07/30/2024 08:29:39 07/30/1907/30/2024 CBC WITH DIFFE RENTI AL/PL ATELE T immature grans (abs) 0.0 x10e3 /uL 0.0-0. 1 Not Available [facility] ([facility][1] Lab) [address] [facility], [place], [address], 07/30/2024 08:29:39 07/30/19 25 07/30/2024 CBC WITH DIFFE RENTI AL/PL ATELE T NRBC POT PULLER Not Available [facility] ([facility][1] Lab) [address] [facility], [place], [address], 07/30/2024 08:29:39 07/30/1907/30/2024 CBC WITH DIFFE RENTI AL/PL ATELE T hematology comments: POT PULLER Not Available [facility] ([facility][1] Lab) [address] [facility], [place], [address], 07/30/2024 08:29:39 07/30/1907/30/2024 COMP. METAB OLIC PANEL (14) glucose 86 mg/dL 70-99 normal Not Available [facility] ([facility][1] Lab) [address] [place], [address], 07/30/2024 08:29:40 07/30/19 25 07/30/2024 COMP. METAB OLIC PANEL (14) BUN 10 mg/dL 6-24 normal Not Available [facility] ([facility]) [address] [facility] [place], [address], 07/30/2024 08:29:40 07/30/19 25 07/30/2024 COMP. METAB OLIC PANEL (14) creatinine 0.68 mg/dL 0.57-1 .00 normal Not Available [facility] ([facility]) [address] [facility] [place], [address], 07/30/2024 08:29:40 07/30/19 25 07/30/2024 COMP. METAB OLIC PANEL (14) eGFR 105 mL/mi n/1.7 3 >59 normal Not Available [facility] ([facility]) [address] [place], [address], 07/30/2024 08:29:40 07/30/19 25 07/30/2024 COMP. METAB OLIC PANEL (14) BUN/creatini ne ratio 15 9-23 normal Not Available [facility] ([facility]) [address] [place], [address], 07/30/2024 08:29:40 07/30/19 25 07/30/2024 COMP. METAB OLIC PANEL (14) sodium 145 mmol/ L 134-14 4 above high normal Not Available [facility] ([facility]) [address] [place], [address], 07/30/2024 08:29:40 07/30/19 25 07/30/2024 COMP. METAB OLIC PANEL (14) potassium 3.3 mmol/ L 3.5-5. 2 below low normal Not Available [facility] ([facility]) [address] [place], [address], 07/30/2024 08:29:40 07/30/19 25 07/30/2024 COMP. METAB OLIC PANEL (14) chloride 101 mmol/ L 96-106 normal Not Available [facility] ([facility]) [address] [place], [address], 07/30/2024 08:29:40 07/30/19 25 07/30/2024 COMP. METAB OLIC PANEL (14) carbon dioxide, total 27 mmol/ L 20-29 normal Not Available [facility] ([facility]) [address] [place], [address], 07/30/2024 08:29:40 07/30/1907/30/2024 COMP. METAB OLIC PANEL (14) calcium 9.6 mg/dL 8.7-10 .2 normal Not Available [facility] ([facility]) [address] [place], [address], 07/30/2024 08:29:40 07/30/19 25 07/30/2024 COMP. METAB OLIC PANEL (14) protein, total 6.3 g/dL 6.0-8. 5 normal Not Available [facility] ([facility]) [address] [place], [address], 07/30/2024 08:29:40 07/30/19 25 07/30/2024 COMP. METAB OLIC PANEL (14) albumin 3.9 g/dL 3.8-4. 9 normal Not Available [facility] ([facility]) [address] [place], [address], 07/30/2024 08:29:40 07/30/1907/30/2024 COMP. METAB OLIC PANEL (14) globulin, total 2.4 g/dL 1.5-4. 5 Not Available [facility] ([facility]) [address] [place], [address], 07/30/2024 08:29:40 07/30/19 25 07/30/2024 COMP. METAB OLIC PANEL (14) bilirubin, total 0.4 mg/dL 0.0-1. 2 normal Not Available [facility] ([facility]) [address] [place], [address], 07/30/2024 08:29:40 07/30/19 25 07/30/2024 COMP. METAB OLIC PANEL (14) alkaline phosphatase 92 IU/L 44-121 normal Not Available [facility] ([facility]) [address] [place], [address], 07/30/2024 08:29:40 07/30/19 25 07/30/2024 COMP. METAB OLIC PANEL (14) AST (SGOT) 19 IU/L 0-40 normal Not Available [facility] ([facility]) [address] [place], [address], 07/30/2024 08:29:40 07/30/19 25 07/30/2024 COMP. METAB OLIC PANEL (14) ALT (SGPT) 13 IU/L 0-32 normal Not Available [facility] ([facility]) [address] [place], [address], 07/30/2024 08:29:40 07/30/19 25 07/30/2024 LIPID PANEL cholesterol, total 143 mg/dL 100-19 9 normal Not Available [facility] ([facility]) [address] [place], [address], 07/30/2024 08:29:41 07/30/19 25 07/30/2024 LIPID PANEL triglyceride s 124 mg/dL 0-149 normal Not Available [facility] ([facility]) [address] [place], [address], 07/30/2024 08:29:41 07/30/19 25 07/30/2024 LIPID PANEL HDL cholesterol 39 mg/dL >39 below low normal Not Available [facility] ([facility]) [address] [place], [address], 07/30/2024 08:29:41 07/30/19 25 07/30/2024 LIPID PANEL VLDL cholesterol sandhya 22 mg/dL 5-40 Not Available [facility] ([facility]) [address] [facility], [place], [address], 07/30/2024 08:29:41 07/30/19 25 07/30/2024 LIPID PANEL LDL chol calc ([facility]) 82 mg/dL 0-99 Not Available [facility] ([facility]) [address] [facility], [place], [address], 07/30/2024 08:29:41 07/30/1907/30/2024 LIPID PANEL LDL calc comment: POT PULLER Not Available [facility] ([facility]) [address] [facility], [place], [address], 07/30/2024 08:29:41 07/30/19 25 07/30/2024 VITAM IN B12 AND FOLAT E vitamin B12 507 pg/mL 232-12 45 normal Not Available [facility] ([facility]) [address] [facility], [place], [address], 07/30/2024 08:29:42 07/30/1907/30/2024 VITAM IN B12 AND FOLAT E folate (folic acid), serum 7.6 NG/mL >3.0 normal A serum folat e annette ntrat ion of less than 3.1 ng/mL is consi dered to repre sent clini sandhya defic iency . Not Available [facility] ([facility]) [address] [facility], [place], [address], 07/30/2024 08:29:42 07/30/1907/30/2024 VITAM IN D, 25-HY DROXY vitamin D, 25-hydroxy 30.1 NG/mL 30.0-1 00.0 Vitam in D defic iency has been defin ed by the Insti tute of Medic ine and an Endoc rine Socie ty pract ice guide line as a level of serum 25-OH vitam in D less than 20 ng/mL (1,2) . The Endoc rine Socie ty went on to furth er defin e vitam in D insuf ficie ncy as a level betwe en 21 and 29 ng/mL (2). 1. IOM (Inst itute of Medic ine). 2010. Dieta ry refer ence intak es for calci um and D. Thais sanchez [place]: The [facility] . 2. Michael k MF, Binpravin [place], Bisch off-F errar i DWYER, et al. Evalu ation , treat ment, and preve ntion of vitam in D defic iency : an Endoc rine Socie ty clini sandhya pract ice guide line. JCEM. 2010; 96(7) :1911 -30. Not Available [facility] ([facility]) [address] [place], [address], 07/30/2024 08:29:42 07/30/19 25 07/29/2024 rapid flu (A+B) Flu negati ve Not Available [facility] [address], [place], [address], 07/29/2024 08:25:00 08/29/19 25 08/29/2024 URINE CULTU RE, ROUTI NE urine culture, routine Final report Not Available [facility] ([facility]) [address] [place], [address], 08/29/2024 22:10:45 08/29/19 25 08/29/2024 URINE CULTU RE, ROUTI NE result 1 COMMEN T Mixed uroge nital dyan Less than 10,00 0 colon ies/m L Not Available [facility] ([facility]) [address] [place], [address], 08/29/2024 22:10:45 08/29/19 25 08/28/2024 urina lysis , dipst ick Leukocytes Negati ve Not Available [facility] [place] [address], [place], [address], 08/28/2024 15:14:40 08/29/19 25 08/28/2024 urina lysis , dipst ick Nitrite negati ve Not Available [facility] [place] [address], [place], [address], 08/28/2024 15:14:40 08/29/19 25 08/28/2024 urina lysis , dipst ick Urobilinogen 1 Not Available [facility] [place] [address], [place], [address], 08/28/2024 15:14:40 08/29/19 25 08/28/2024 urina lysis , dipst ick Protein [address] [facility] [place] [address], [place], [address], 08/28/2024 15:14:40 08/29/19 25 08/28/2024 urina lysis , dipst ick pH 6.[address] [facility] [place] [address] [facility], [place], [address], 08/28/2024 15:14:40 08/29/19 25 08/28/2024 urina lysis , dipst ick Blood Negati ve Not Available [facility] [place] [address], [place], [address], 08/28/2024 15:14:40 08/29/19 25 08/28/2024 urina lysis , dipst ick Specific Bruning 1.025 Not Available [facility] [place] [address], [place], [address], 08/28/2024 15:14:40 08/29/19 25 08/28/2024 urina lysis , dipst ick Ketone Trace Not Available [facility] [place] [address], [place], [address], 08/28/2024 15:14:40 08/29/19 25 08/28/2024 urina lysis , dipst ick Bilirubin Small Not Available [facility] [place] [address], [place], [address], 08/28/2024 15:14:40 08/29/19 25 08/28/2024 urina lysis , dipst ick Glucose Negati ve Not Available [facility] [place] [address], [place], [address], 08/28/2024 15:14:40 08/29/19 25 08/28/2024 urina lysis , dipst ick Appearance Cloudy Not Available [facility] [place] [address], [place], [address], 08/28/2024 15:14:40 08/29/19 25 08/28/2024 urina lysis , dipst ick Color Dark Yellow Not Available [facility] [address], [place], [address], 08/28/2024 15:14:40 Result Notes None recorded. Problems Name Problem SNOMED Code Status Onset Date Resolution Date Notes Provider Name and Address Organization Details Recorded Time Body mass index 30+ - obesity 419055072 Active 2016 Shannan Remy kidd MARCUS - [facility] 4 09:18:53 [facility] 01042835 Active 2017 Godfrey Trimble, [employer] [address], [place], [address], [place] - [facility] 8 09:17:52 Gastriti s 2128585 Active 2018 Shannan kidd MARCUS - [facility] 4 09:18:54 Excessiv e caffeine intake 39558586403 4109 Active 2018 Shannan kidd MARCUS - [facility] 4 09:18:54 Adverse reaction to caffeine 998706872 Active 2018 Shannan Stone null, [place] - [facility] 4 09:18:53 Postsurg ical mirella e 296172900 Active 2018 Shannan Stone null, [place] - [facility] 4 09:18:54 Pain of breast 68687586 Active 2018 Shannan Stone null, [place] - [facility] 4 09:18:54 Fibrocys tic disease of breast 23717184 Active 2018 Shannan Stone null, [place] - [facility] 4 09:18:54 Mammogra phy abnormal 672136250 Active 2018 Shannan Stone null[place] - [facility] 4 09:18:53 Viral screenin g Active 2020 Shannan Stone [place] - [facility] 4 09:18:53 Suspecte d COVID-19 134680453 Completed 08/30/2020 Removal Reason: Problem added by user lflora from the COVID-19 watch flag Shellie Roe null, [place] - [facility] 1 13:59:44 Aortic valve regurgit ation 72183979 Active 2022 Shannan Stone null, [place] - [facility] 4 09:18:54 Vitamin D deficien cy 85487424 Active 2022 Shannan Stone null, - [facility] 4 09:18:54 Depressi ve disorder 55403425 Active Shannan Stone null, - [facility] 4 09:18:54 Osteoart hritis 670406255 Active Shannan Stone null, - [facility] 4 09:18:54 Anxiety 89829173 Active Shannan Stone null, [place] - [facility] 4 09:18:54 Diarrhea 01266499 Active Shannan Stone null, [place] - [facility] 4 09:18:54 Cardiac arrhythm ia 058539756 Active Shannan Stone null, - [facility] 4 09:18:54 Bursitis 91011138 Active Shannan Stone null, - [facility] 4 09:18:54 Body mass index 25-29 - overweig ht 482048441 Active 2024 Ni Murguia , [employer] [address], [place], [address], [place] - [facility] 15:31:41 [facility] 093223962 Active 2024 Ni Murguia , [employer] [address], [place], [address], [place] - [facility] 15:31:43 Problem Notes None recorded. Procedures Surgical History Date Name Laterality Status Provider Name and Address Organization Details Recorded Time 024 Medication Reconcilliation completed [facility] 07/11/2023 11:47:52 023 Date of Last Mammogram completed Gem Bravo APRN [address], [place], [address], [facility] - [facility] 12/27/2022 16:04:29 022 Medication Reconcilliation completed Radha Seals RN [address], [place], [address], [place] - [facility] 06/01/2021 10:09:05 021 Systolic B/P less than 130 mm Hg completed [facility] 07/07/2020 10:25:46 021 Diastolic B/P 80-89 mm Hg completed [facility] 07/07/2020 10:25:47 021 Systolic B/P less than 130 mm Hg completed [facility] 05/31/2020 10:46:42 021 Diastolic B/P less than 80 mm Hg completed [facility] 05/31/2020 10:46:43 020 Systolic B/P less than 130 mm Hg completed [facility] 01/16/2020 09:15:35 020 Diastolic B/P less than 80 mm Hg completed [facility] 01/16/2020 09:15:38 020 Systolic B/P less than 130 mm Hg completed Angy Del Cid [place] [facility] 07/28/2019 15:15:52 020 Diastolic B/P less than 80 mm Hg completed [facility] 07/28/2019 15:15:54 020 Medication Reconcilliation completed [facility] 07/28/2019 15:11:41 020 Systolic B/P less than 130 mm Hg completed [facility] 07/02/2019 10:41:48 020 Diastolic B/P 80-89 mm Hg completed [facility] 07/02/2019 10:41:49 019 Systolic B/P less than 130 mm Hg completed [facility] 03/19/2019 08:49:31 019 Diastolic B/P 80-89 mm Hg completed [facility] 03/19/2019 08:49:33 019 Medication Reconcilliation completed [facility] 03/19/2019 08:45:38 019 Systolic B/P less than 130 mm Hg completed [facility] 02/26/2019 09:14:09 019 Diastolic B/P less than 80 mm Hg completed [facility] 02/26/2019 09:14:10 019 Medication Reconcilliation completed [facility] 02/26/2019 09:05:04 019 Systolic B/P less than 130 mm Hg completed Marynanette Bridges [facility] 02/03/2019 13:43:33 019 Diastolic B/P less than 80 mm Hg completed Marynanette Bridges [facility] 02/03/2019 13:43:41 019 Medication Reconcilliation completed Marynanette Bridges [facility] 02/03/2019 13:33:44 019 Systolic B/P less than 130 mm Hg completed [facility] 01/01/2019 10:19:51 019 Diastolic B/P 80-89 mm Hg completed [facility] 01/01/2019 10:19:53 019 Systolic B/P less than 130 mm Hg completed Angy Del Cid [place] - [facility] 11/12/2018 11:07:42 019 Diastolic B/P 80-89 mm Hg completed Angy Del Cid [facility] 11/12/2018 11:07:44 019 Endoscopy completed Lydia Johnson [facility] 01/15/2019 13:39:39 018 Date of Last Colonoscopy completed Angy Del Cid [facility] 07/24/2022 09:17:35 018 Cholecystectomy, laparoscopic completed Lydia Johnson [facility] 01/15/2019 13:38:22 Orthopedic Surgery completed Rossana Gomes [facility] 12/13/2022 14:45:33 Hysterectomy, Total Abdominal completed Lydia Johnson [facility] 01/17/2019 10:46:02 Imaging Results None recorded. Procedure Notes None recorded. Medical Equipment None Reported. Allergies Allergen ID Allergen Name Allergen Category Reaction Reaction Severity Criticality Documentation Date Start Date Code Code System Note Provider Name and Address Organization Details Recorded Time 466029 Demerol medicatio n vomiting Not available Not available 08/12/2018 19195 1 RxNorm Kalpana Angie [facility] 9 10:33:47 199254 morphine medicatio n vomiting Not available Not available 01/17/2019 7052 RxNorm Amberndri denzel Jonhson [facility] 9 10:42:57 841463 fentanyl medicatio n vomiting Not available Not available 01/17/2019 4337 RxNorm Amberndri a Elizabeth null, [facility] 9 10:43:07 25254 Substance with sulfonami de structure and antibacte rial mechanism of action (substanc e) medicatio n Not available Not available Not available 02/11/20162007 43411 8003 SNOMED React ion: Vomit ting, dizzi ness; Comme nt: Sulfo namid es; Not Available [facility] 6 09:16:18 41883 acetamino phen medicatio n vomiting Not available Not available 02/11/20162007 161 RxNorm React ion: Nause a/vom iting ; Comme nt: aceta minop hen; Shannan Alberto null, [place] - [facility] 4 09:18:52 98543 hydrocodo ne bitartrat e medicatio n vomiting Not available Not available 02/11/20162007 25573 9 RxNorm React ion: Nause a/vom iting ; Comme nt: hydro codon e dannie trate ; Shannan Alberto null, [place] - [facility] 4 09:18:52 07329 acetamino phen / oxycodone medicatio n Not available Not available Not available 09/13/2016 13312 3 RxNorm vomit ing Kalpana Adams null, [place] - [facility] 9 10:34:05 Medications Name Sig Start Date Stop Date Status Note LastModified by Organization Details LastModified Time amantadin e HCl 100 mg tablet 06/11 completed Not Available Not Available Not Available losartan 50 mg tablet TAKE ONE TABLET BY MOUTH TWICE A DAY. active Not Available Not Available No t Available cyclobenz aprine 10 mg tablet TAKE 1 TABLET BY MOUTH FOUR TIMES DAILY NEEDED. active Not Available Not Available No t Available amoxicill in 500 mg capsule TAKE (1) CAPSULE BY MOUTH EVERY EIGHT HOURS. 08/28 completed Not Available Not Available Not Available bupropion HCl SR 150 mg tablet,12 hr sustained -release 12/19 completed Not Available Not Available Not Available promethaz ine-DM 6.25 mg-15 mg/5 mL oral syrup TAKE (1) TEASPOON FUL EVERY SIX HOURS NEEDED 12/27 completed Not Available Not Available Not Available neomycin- polymyxin -hydrocor t 3.5 mg/mL-10, 000 unit/mL-1 % ear solution INSTILL 4 DROPS INTO AFFECTED EAR(S) BY OTIC ROUTE 3 TIMES PER DAY 07/13 completed Not Available Not Available Not Available nystatin 100,000 unit/mL oral suspensio n TAKE (1) TEASPOON FUL FOUR TIMES DAILY. 06/01 completed Not Available Not Available Not Available prednison e 10 mg tablet Take 1 tablet every day by oral route for 5 days. 02/26 completed Not Available Not Available Not Available gabapenti n 600 mg tablet TAKE (1) TABLET BY MOUTH THREE TIMES DAILY. 01/20 completed Not Available Not Available Not Available vitamin E 200 unit capsule Take 2 capsules every day by oral route. 2022 active Not Available Not Available Not Avai lable nicotine 14 mg/24 hr daily transderm al patch APPLY 1 PATCH ONCE DAILY 08/28 completed Not Available Not Available Not Available clindamyc in HCl 300 mg capsule Take 1 capsule every 8 hours by oral route as needed for 10 days. 01/15 completed Not Available Not Available Not Available azithromy luis 250 mg tablet TAKE 2 TABLETS BY MOUTH THE 1ST DAY, THEN TAKE 1 TABLET BY MOUTH EVERY DAY FOR 4 DAYS 12/03 completed Not Available Not Available Not Available ibuprofen 800 mg tablet 01/07 completed Not Available Not Available Not Available metoprolo l succinate ER 50 mg tablet,ex tended release 24 hr TAKE 1 TABLET BY MOUTH ONCE A DAY. 12/27 completed Not Available Not Available Not Available promethaz ine 25 mg rectal supposito ry one VA q 6 hrs prn 07/13 completed phenerga n supp 25mg;Rec orded Status: Recorded on: 02/08/20 08 10:04PM; User: erica Not Available Not Available Not Available ondansetr on HCl 8 mg tablet TAKE (1) TABLET BY MOUTH EVERY EIGHT HOURS NEEDED. 01/07 completed Not Available Not Available Not Available meloxicam 15 mg tablet TAKE 1 TABLET BY MOUTH EACH MORNING 08/28 completed Not Available Not Available Not Available promethaz ine 12.5 mg tablet Take 1 tablet 4 times a day by oral route as needed. 03/19 completed Not Available Not Available Not Available prednison e 20 mg tablet TAKE (1) TABLET BY MOUTH TWICE A DAY. 12/27 completed Not Available Not Available Not Available metoprolo l succinate ER 100 mg tablet,ex tended release 24 hr TAKE 1 TABLET BY MOUTH ONCE A DAY. active Not Available Not Available No t Available potassium chloride ER 10 mEq tablet,ex tended release TAKE 1 TABLET BY MOUTH ONCE A DAY. active Not Available Not Available No t Available hydroxyzi ne HCl 50 mg tablet TAKE 1 TABLET AT BEDTIME NEEDED FOR SLEEP 07/24 completed Not Available Not Available Not Available amlodipin e 5 mg tablet TAKE (1) TABLET BY MOUTH TWICE A DAY. 11/03 completed Not Available Not Available Not Available ciproflox acin 500 mg tablet Take 1 tablet every 12 hours by oral route for 10 days. 01/01 completed Not Available Not Available Not Available tramadol 50 mg tablet active Not Available Not Available Not Available amoxicill in 500 mg tablet Take 1 tablet every 8 hours by oral route. 07/04 completed Not Available Not Available Not Available ondansetr on 8 mg disintegr ating tablet DISSOLVE 1 TABLET BY MOUTH TWICE DAILY NEEDED FOR NAUSEA 10/20 completed Not Available Not Available Not Available ketorolac 10 mg tablet 08/30 completed Not Available Not Available Not Available pantopraz ole 20 mg tablet,de layed release 06/07 completed Not Available Not Available Not Available meloxicam 7.5 mg tablet 08/12 completed Not Available Not Available Not Available Tessalon Perles 100 mg capsule 1-2 po tid prn cough 07/13 completed Tessalon Perles 100 mg;Recor ded Status: Recorded on: 02/08/20 08 10:04PM; User: erica Not Available Not Available Not Available terbinafi ne HCl 250 mg tablet Take 1 tablet every day by oral route. 02/03 completed Pt states she is no longer taking this. Not Available Not Available Not Available ceftriaxo ne 1 gram solution for injection Take 1 g by injectio n route. 06/26 completed Not Available Not Available Not Available hydromorp gretchen 2 mg tablet 10/12 completed Not Available Not Available Not Available potassium chloride ER 20 mEq tablet,ex tended release(p art/cryst ) TAKE (1) TABLET BY MOUTH TWICE A DAY. active Not Available Not Available No t Available famotidin e 20 mg tablet TAKE (1) TABLET BY MOUTH TWICE A DAY. active Not Available Not Available No t Available magnesium oxide 400 mg (241.3 mg magnesium ) tablet 09/14 completed Not Available Not Available Not Available methocarb ro 750 mg tablet TAKE (1) TABLET BY MOUTH THREE TIMES DAILY. 06/01 completed Not Available Not Available Not Available nitroglyc jessica 0.4 mg/hr transderm al 24 hour patch DIRECTED . 10/06 completed Not Available Not Available Not Available ciproflox acin 0.3 % eye drops INSTILL 1 DROP INTO AFFECTED EYE(S) BY OPHTHALM IC ROUTE EVERY 2 HOURSWHI LE AWAKE FOR 2 DAYS THEN 1 DROP EVERY 4 HRS WHILE AWAKE FOR 5 DAYS 11/27 completed Not Available Not Available Not Available phenazopy ridine 100 mg tablet Take 1 tablet 3 times a day by oral route as needed. 01/22 completed Not Available Not Available Not Available baclofen 10 mg tablet TAKE 1/2 TABLET BY MOUTH 3 TIMES DAILY. active Not Available Not Available No t Available cephalexi n 500 mg capsule TAKE 1 CAPSULE BY MOUTH EVERY 12 HOURS 01/20 completed Not Available Not Available Not Available trazodone 150 mg tablet TAKE 1 TABLET BY MOUTH AT BEDTIME FOR INSOMNIA . active Not Available Not Available No t Available esomepraz ole magnesium 40 mg capsule,d elayed release active Not Available Not Available Not Available ropinirol e 0.5 mg tablet TAKE (1) TABLET BY MOUTH THREE TIMES DAILY NEEDED FOR LEG PAIN. 06/11 completed Not Available Not Available Not Available prednison e 50 mg tablet TAKE 1 TABLET BY MOUTH ONCE DAILY FOR 7 DAYS 12/27 completed Not Available Not Available Not Available hydrochlo rothiazid e 12.5 mg capsule TAKE 1 CAPSULE BY MOUTH EVERY MORNING 11/03 completed Not Available Not Available Not Available lansopraz ole 15 mg capsule,d elayed release 06/04 completed Not Available Not Available Not Available gabapenti n 300 mg capsule TAKE (1) CAPSULE BY MOUTH THREE TIMES DAILY. 10/06 completed Not Available Not Available Not Available omeprazol e 20 mg capsule,d elayed release Take 1 capsule every day by oral route as directed for 30 days. 01/07 completed Not Available Not Available Not Available diclofena c sodium 75 mg tablet,de layed release TAKE ONE TABLET TWO TIMES A DAY 06/01 completed Not Available Not Available Not Available monteluka st 10 mg tablet 08/12 completed Not Available Not Available Not Available hydroxyzi ne HCl 25 mg tablet TAKE 2 TABLETS AT BEDTIME NEEDED FOR SLEEP 06/11 completed Not Available Not Available Not Available hydrochlo rothiazid e 25 mg tablet TAKE (1) TABLET BY MOUTH DAILY NEEDED. 06/11 completed Not Available Not Available Not Available mupirocin 2 % topical ointment APPLY TO AFFECTED AREA TWO TO THREE TIMES DAILY FOR 8-10 DAYS. 06/08 completed Not Available Not Available Not Available Vistaril 25 mg capsule one po q 6 hrs prn 07/13 completed Vistaril Oral Capsule 25 mg;Recor ded Status: Recorded on: 02/08/20 08 10:05PM; User: erica Not Available Not Available Not Available diclofena c sodium 50 mg tablet,de layed release Take 1 tablet 3 times a day by oral route as needed. 03/19 completed Not Available Not Available Not Available metoprolo l succinate ER 25 mg tablet,ex tended release 24 hr TAKE ONE TABLET BY MOUTH ONCE DAILY. 12/27 completed Not Available Not Available Not Available ergocalci ferol (vitamin D2) 1,250 mcg (50,000 unit) capsule 07/13 completed Not Available Not Available Not Available dexametha sone sodium phosphate 4 mg/mL injection solution Inject 2 mL by intramus cular route. 02/26 completed Not Available Not Available Not Available ibuprofen 600 mg tablet TAKE (1) TABLET BY MOUTH THREE TIMES DAILY NEEDED. 08/28 completed Not Available Not Available Not Available levofloxa luis 500 mg tablet Take 1 tablet every 24 hours by oral route for 7 days. 12/19 completed Not Available Not Available Not Available methylpre dnisolone 4 mg tablets in a dose pack TAKE 6 TABS ON DAY 1, TAKE 5 TABS ON DAY 2, TAKE 4 TABS ON DAY 3, TAKE 3 TABS ON DAY 4, TAKE 2 TABS ON DAY 5, TAKE 1 ON DAY 6. TAKE WITH FOOD. 12/27 completed Not Available Not Available Not Available ketorolac 60 mg/2 mL intramusc ular solution Inject 2 mL by intramus cular route. 02/26 completed Not Available Not Available Not Available Percocet 5 mg-325 mg tablet one po tid prn pain 07/13 completed Percocet -5/325 325 mg-5 mg;Recor ded Status: Recorded on: 02/08/20 08 10:05PM; User: erica Not Available Not Available Not Available ondansetr on 4 mg disintegr ating tablet DISSOLVE 1 TABLET IN MOUTH EVERY 8 HOURS NEEDED FOR NAUSEA FOR UP TO 7 DAYS 12/27 completed Not Available Not Available Not Available cefdinir 300 mg capsule Take 1 capsule every 12 hours by oral route for 10 days. 07/13 completed Not Available Not Available Not Available dexametha sone sodium phosphate 10 mg/mL injection solution 10 mg IM x 1 09/14 completed Not Available Not Available Not Available fluticaso ne propionat e 50 mcg/actua tion nasal spray,nilson pension USE 1 SPRAY IN EACH NOSTRIL ONCE DAILY active Not Available Not Available No t Available sertralin e 50 mg tablet TAKE ONE TABLET BY MOUTH AT BEDTIME active Not Available Not Available No t Available itraconaz ole 100 mg capsule 08/30 completed Not Available Not Available Not Available doxycycli ne hyclate 100 mg tablet TAKE 1 TABLET BY MOUTH EVERY 12 HOURS 06/11 completed Not Available Not Available Not Available Augmentin 500 mg-125 mg tablet 1 po bid x 10 days 07/13 completed Augmenti n 500 mg-125 mg;Recor ded Status: Recorded on: 02/08/20 08 10:02PM; User: erica Not Available Not Available Not Available sulindac 200 mg tablet TAKE (1) TABLET BY MOUTH TWICE A DAY. 06/11 completed Not Available Not Available Not Available loratadin e 10 mg tablet TAKE 1 TABLET BY MOUTH ONCE DAILY NEEDED. active Not Available Not Available No t Available metoclopr amide 10 mg tablet TAKE ONE TABLET BY MOUTH EVERY 6 HOURS. 08/28 completed Not Available Not Available Not Available esomepraz ole magnesium 20 mg capsule,d elayed release 06/04 completed Not Available Not Available Not Available neomycin- polymyxin -hydrocor t 3.5 mg-10,000 unit/mL-1 % ear drops,nilson p INSTILL 4 DROPS INTO AFFECTED EAR(S) BY OTIC ROUTE 3 TIMES PER DAY 09/19 /2023 completed Not Available Not Available Not Available cyclobenz aprine 5 mg tablet Take 1 tablet 3 times a day by oral route for 4 days. 03/19 completed Not Available Not Available Not Available ORTHOVISC 30 mg/2 mL intra-art icular syringe 12/19 completed Not Available Not Available Not Available nitrofura ntoin monohydra te/macroc rystals 100 mg capsule Take 1 capsule every 12 hours by oral route for 5 days. 09/09 completed Not Available Not Available Not Available pregabali n 25 mg capsule TAKE 1 CAPSULE BY MOUTH AT BEDTIME. active Not Available Not Available No t Available Antifunga l (clotrima zole) 1 % topical cream APPLY TO AFFECTED AREA EVERY 12 HOURS 07/24 completed Not Available Not Available Not Available hydrochlo rothiazid e 12.5 mg tablet Take 1 tablet every day by oral route. 01/22 completed Not Available Not Available Not Available cholecalc iferol (vitamin D3) 1,250 mcg (50,000 unit) capsule TAKE 1 CAPSULE BY MOUTH ONCE A WEEK. 08/28 completed Not Available Not Available Not Available diclofena c 1 % topical gel 07/13 completed Not Available Not Available Not Available GaviLyte- G 236 gram-22.7 4 gram-6.74 gram-5.86 gram oral solution 08/12 completed Not Available Not Available Not Available Nexium 24HR 22.3 mg capsule,d elayed release TAKE (2) CAPSULES BY MOUTH DAILY. 02/19 completed Not Available Not Available Not Available Nexium 24HR 20 mg tablet,de layed release Take 1 tablet twice a day by oral route as directed for 30 days. 08/12 completed Not Available Not Available Not Available Paxlovid 300 mg (150 mg x 2)-100 mg tablets in a dose pack TAKE 3 TABLETS BY MOUTH FROM YELLOW SIDE IN THE MORNING AND 3 TABLETS IN THE EVENING FROM THE BLUE SIDE FOR 5 DAYS 05/09 completed Not Available Not Available Not Available Vitals Date Recorded Body height Body mass index (BMI) Body weight Body temperature Respiratory rate Heart rate Oxygen saturation Oxygen saturation in Arterial blood by Pulse oximetry Systolic blood pressure Diastolic blood pressure Provider Name and Address Organization Details Last Updated DateTime 5 167.64 cm 31.2 kg/m2 40071.4 3 g 98.2 [degF] 18 /min 106 /min 99 % 99 % 126 mm[Hg] 90 mm[Hg] Angy Del Cid [place] - [facility] 5 10:33:26 Date Recorded Body height Body mass index (BMI) Body weight Oxygen saturation Oxygen saturation in Arterial blood by Pulse oximetry Heart rate Body temperature Respiratory rate Systolic blood pressure Diastolic blood pressure Provider Name and Address Organization Details Last Updated DateTime 5 167.64 cm 29.1 kg/m2 60870.6 3 g 98 % 98 % 78 /min 98.2 [degF] 17 /min 112 mm[Hg] 74 mm[Hg] Elizabeth Quanl [place] - [facility] 5 08:30:56 Date Recorded Body height Body mass index (BMI) Body weight Body temperature Respiratory rate Heart rate Oxygen saturation Oxygen saturation in Arterial blood by Pulse oximetry Systolic blood pressure Diastolic blood pressure Provider Name and Address Organization Details Last Updated DateTime 5 167.64 cm 27.6 kg/m2 49776.3 g 97.8 [degF] 18 /min 80 /min 96 % 96 % 124 mm[Hg] 72 mm[Hg] Carlosirina Bhupinder [place] - [facility] 5 15:13:39 Date Recorded Body height Body mass index (BMI) Body weight Body temperature Respiratory rate Heart rate Oxygen saturation Oxygen saturation in Arterial blood by Pulse oximetry Systolic blood pressure Diastolic blood pressure Provider Name and Address Organization Details Last Updated DateTime 5 167.64 cm 26.9 kg/m2 73594.1 3 g 98.4 [degF] 17 /min 84 /min 98 % 98 % 120 mm[Hg] 74 mm[Hg] Angy Thinkfuse [place] - [facility] 5 14:03:57 Date Recorded Body height Body mass index (BMI) Body weight Body temperature Respiratory rate Heart rate Oxygen saturation Oxygen saturation in Arterial blood by Pulse oximetry Systolic blood pressure Diastolic blood pressure Provider Name and Address Organization Details Last Updated DateTime 4 167.64 cm 32.6 kg/m2 31376.3 6 g 98.3 [degF] 17 /min 122 /min 98 % 98 % 118 mm[Hg] 88 mm[Hg] Angy Thinkfuse [place] - [facility] 09:13:59 Social History Question Answer Notes LastModified by Organizat ion Details LastModified Time Tobacco Smoking Status Current Every Day Smoker quit 2016 Angy Del Cid bernabe, [facility] 14:32:42 Able To Swim? Yes [email or web address] Information not available 11/27/2016 Do You Have An Advance Directive? No [email or web address] Information not available 11/27/2016 Do You Wear A Helmet When Biking? No [email or web address] Information not available 11/27/2016 Are You Blind Or Do You Have Difficulty Seeing? No [email or web address] Information not available 11/27/2016 Is Blood Transfusion Acceptable In An Emergency? Yes [email or web address] Information not available 12/13/2022 What Is Your Level Of Caffeine Consumption? Occasional [email or web address] Information not available 11/27/2016 In The 14 Days Before Symptom Onset, Have You Had Close Contact With A Laboratory-confi rmed COVID-19 While That Case Was Ill? No [email or web address] Information not available 01/20/2022 In The 14 Days Before Symptom Onset, Have You Had Close Contact With A Person Who Is Under Investigation For COVID-19 While That Person Was Ill? No [email or web address] Information not available 01/20/2022 Have You Been To An Area Known To Be High Risk For COVID-19? No [email or web address] Information not available 01/20/2022 Are You Deaf Or Do You Have Serious Difficulty Hearing? No Information not available 11/27/2016 What Type Of Diet Are You Following? REGULAR [email or web address] Information not available 11/27/2016 Which Illicit Or Recreational Drugs Have You Used? None [email or web address] Information not available 11/27/2016 Have You Processed Blood Or Body Fluids From An Ebola Virus Disease Patient Without Appropriate PPE? No [email or web address] Information not available 01/20/2022 Do You Reside In Or Have You Traveled To An Area Where Ebola Virus Transmission Is Active? No [email or web address] Information not available 01/20/2022 What Is The Highest Grade Or Level Of School You Have Completed Or The Highest Degree You Have Received? [id number] [email or web address] Information not available 12/13/2022 Swimming/diving Yes [email or web address] Informati on not available 11/27/2016 Have There Been Any Changes To Your Family Or Social Situation? No [email or web address] Information not available 01/20/2022 What Is The Fluoride Status Of Your Home? Fluoridated [email or web address] Information not available 12/13/2022 Hard Of Hearing Or Deaf In One Or Both Ears? No [email or web address] Information not available 11/27/2016 Have You Recently Or Are You Planning To Travel To An Area With Zika Virus? No [email or web address] Information not available 01/20/2022 Legally Blind In One Or Both Eyes? No Information not available 11/27/2016 Do You Have A Medical Power Of Swatch Folder? No [email or web address] Information not available 01/20/2022 What Was The Date Of Your Most Recent Tobacco Screening? 06/11/2024 Information not available 06/11/2024 How Many Children Do You Have? 1 [email or web address] Information not available 12/13/2022 What Is Your Relationship Status? Information not available 01/17/2019 Seat Belts Used Routinely Yes [email or web address] Information not available 11/27/2016 Are You Sexually Active? No [email or web address] Information not available 12/13/2022 Smoke Alarm In Home Yes [email or web address] Information not available 11/27/2016 Do You Have Smoke And Carbon Monoxide Detectors In Your Home? Yes [email or web address] Information not available 01/20/2022 Are You Passively Exposed To Smoke? No Information not available 11/27/2016 How Much Tobacco Do You Smoke? 1 PPD Started Back About 3 Months Ago. Smokes About 1 1/5 Packs Daily Information not available 06/26/2023 General Stress Level Medium [email or web address] Information not available 11/27/2016 Do You Use Sunscreen Routinely? Yes [email or web address] Information not available 11/27/2016 Has Tobacco Cessation Counseling Been Provided? Yes [email or web address] Information not available 12/13/2022 On What Date Was Tobacco Cessation Counseling Provided? 12/13/2022 [email or web address] Information not available 12/13/2022 How Many Years Have You Smoked Tobacco? 20 Information not available 01/17/2019 Do You Have Difficulty Walking Or Climbing Stairs? No [email or web address] Information not available 11/27/2016 What Contraceptive Method Was Reported At Start Of This Visit? Female Sterilization [email or web address] Information not available 12/13/2022 What Contraceptive Method Was Reported At End Of This Visit? Female Sterilization Information not available 12/13/2022 Do You Want To Talk About Contraception Or Prevention During Your Visit Today? No - I Do Not Want To Talk About Contraception Today Because I Am Here For Something Else [email or web address] Information not available 12/13/2022 How Was The Contraceptive Method Provided? Provided On Site [email or web address] Information not available 12/13/2022 Do You Have Any Future Plans To Get ? No, I Don't Want To Become [email or web address] Information not available 12/13/2022 Sex: Female Functional Status Question Answer Note LastModified by Abcellute ion Details LastModified Time Do you or have you ever used smokeless tobacco? Never used smokeless tobacco [email or web address] Information not available 01/01/2019 Are you currently employed? Yes Information not available 11/27/2016 Do you have transportation difficulties? No [email or web address] Information not available 01/20/2022 Are you able to care for yourself? Yes [email or web address] Information n ot available 11/27/2016 Do you have difficulty dressing or bathing? No [email or web address] Information not available 11/27/2016 Do you or have you ever used e-cigarettes or vape? Never used electronic cigarettes [email or web address] Information not available 01/01/2019 What is your exercise level? Occasional [email or web address] Information not available 11/27/2016 Do you use any illicit or recreational drugs? No [email or web address] Information not available 01/20/2022 Do you or have you ever used any other forms of tobacco or nicotine? No [email or web address] Information not available 01/20/2022 What is your level of alcohol consumption? None [email or web address] Information not available 11/27/2016 What is your status? Not [email or web address] Information no t available 12/13/2022 Are you able to walk? YESWOREST [email or web address] Information not available 11/27/2016 Do you have difficulty doing errands alone? No [email or web address] Information not available 11/27/2016 What is your occupation? [employer] story - [employer] [facility] Information not available 01/17/2019 Mental Status Question Answer Note LastModified by Organizat ion Details LastModified Time Do you feel stressed (tense, restless, nervous, or anxious, or unable to sleep at night)? [id number] [email or web address] Information not available 12/13/2022 Do you have difficulty concentrating, remembering or making decisions? No [email or web address] Information no t available 11/27/2016 Family History Relationship Description Onset Age of this Age Resolved Age Notes LastModified by Organization Details LastModified Time Unspecified Relation Family history of malignant neoplasm Aunt [email or web address] Not available 2016 11:40:00 Unspecified Relation Family history of malignant neoplasm Uncle [email or web address] Not available 2016 11:40:00 Unspecified Relation Headache [email or web address] Not available 017 11:40:12 Unspecified Relation Neoplasm of skin Nephew [email or web address] Not available 2022 14:48:36 Paternal Grandmother Family history of malignant neoplasm [email or web address] Not available 2016 11:40:00 Father Kidney stone [email or web address] Not avail able 09/13/2016 11:40:21 Father Cardiac pacemaker procedure [email or web address] Not available 2016 11:41:13 Father Seizure disorder [email or web address] Not available 2016 11:41:22 Maternal Grandmother Muscular dystrophy [email or web address] Not available 2016 11:40:48 Mother Gastric ulcer [email or web address] Not available 2016 11:42:03 Sister Disorder of thyroid gland [email or web address] Not available 2016 11:42:15 Maternal Aunt Malignant tumor of breast [email or web address] Not available 2022 14:47:10 Notes:Stent placement - [facility], 1928–1983 er Medical History Condition Response Acid Reflux (GERD) Y Depression Y Tendonitis Y Migraine Headaches Y Gynecological History Statement/Question Response Abnormal Pap N Date of Last Mammogram 12/27/2022 On BCP's at Conception? N Post Menopausal Bleeding N STIs/STDs N HPV Vaccine N Current Control Method Hysterectom y Age at First Child 17 Last Lipids -2021 Date of Last Colonoscopy 2018 Sexually Active? Y Menses Monthly N Date of Last Pap Smear Sexual Problems? N Desired Control Method Hysterectom y Hormone Replacement Therapy N Obstetrics History GPAL:G 1 P 1 0 0 1 Type Value Full Term 1 Living 1 Total 1 Immunizations Vaccine Type Date Status Note Provider Nam e and Address Organization Details Recorded Time Influenza, split virus, quadrivalent, preservative 1 completed Jhony Swan null, [place] - [facility] 09/10/2020 11:58:57 pneumococcal polysaccharide PPV23 1 completed Jhony Swan null, [place] - [facility] 09/10/2020 11:59:54 COVID-19, mRNA, LNP-S, bivalent, PF, 50 mcg/0.5 mL or 25mcg/0.25 mL dose 3 completed Godfrey Trimble, [employer] [address], [place], [address], [place] - [facility] 05/10/2022 09:46:24 Influenza, split virus, quadrivalent, preservative 4 completed Elizabeth Anabella null, [place] - [facility] 05/15/2023 09:19:00 Influenza, split virus, trivalent, preservative 5 completed Godfrey Trimble, [employer] O[employer] [address], [place], [address], [place] - [facility] 06/11/2024 11:08:06 Influenza, split virus, quadrivalent, preservative 8 completed Not Available [facility] 05/24/2019 03:55:24 Pneumococcal conjugate PCV 13 8 completed Not Available [facility] 05/24/2019 03:55:24 COVID-19, mRNA, LNP-S, PF, 100 mcg/0.5mL dose or 50 mcg/0.25mL dose 1 completed Not Available [facility] 05/15/2023 03:44:12 COVID-19, mRNA, LNP-S, PF, 100 mcg/0.5mL dose or 50 mcg/0.25mL dose 1 completed Not Available [facility] 05/15/2023 03:44:12 COVID-19, mRNA, LNP-S, PF, 100 mcg/0.5mL dose or 50 mcg/0.25mL dose 1 completed Not Available [facility] 05/15/2023 03:44:12 SARS-COV-2 (COVID-19) vaccine, UNSPECIFIED 3 completed Not Available [facility] 06/26/2023 14:12:53 Tdap 9 completed Not Available [facility] 05/24/2019 03:56:15 Influenza, split virus, quadrivalent, preservative 9 completed Not Available [facility] 05/24/2019 03:56:15 Past Encounters Encounter ID Performer Location Encounter Start Date Encounter Closed Date Diagnosis/Indication Diagnosis SNOMED-CT Code Diagnosis ICD10 Code Diagnosis Note [id number] SVETA Botello [facility] [address] [place] [facility] [place] [address] 06/28/2016 10:13:08 06/28/2016 11:48:41 Acute otitis externa 07247246 H60.512 Acute pharyngitis 099403 003 J02.9 Acute urin nancy tract infection 563608923 N39.0 [id number] SVETA Scalesmihcaelamaria luisa [facility] [address] [place] [facility] [place] [address] 07/13/2016 10:04:50 07/13/2016 11:02:51 Acute maxillary sinusitis 61425265 J01.00 Conjunctivitis 1335863 H 10.9 [id number] SVETA Botellomichaelamaria luisa [facility] [address] [place] [address] 09/13/2016 15:40:11 09/13/2016 16:33:22 Traumatic injury 483960565 T14.90 [id number] SVETA Botellomichaelamaria luisa [facility] [address] [place]UBÉ[place], [place] [address] 11/27/2016 10:51:23 11/27/2016 12:14:56 Traumatic injury 375015428 T14.90 Body mass index 30+ - obesity 968475265 Z68.32 [id number] SVETA Botello [facility] [address] ARREDONDORUBÉNSarah [facility] [place] [address] 12/19/2016 13:59:23 12/19/2016 15:32:44 Edema of lower extremity 251334674 R60.0 Acute urin nancy tract infection 558228173 N39.0 [id number] SVETA Botello [address] [place] [address] [place] [address] 01/22/2017 10:16:38 01/22/2017 12:00:52 Strain of trapezius muscle 454607882 S46.812A [id number] SVETA Botello [address] [address] [place] [address] 04/04/2017 12:51:58 04/04/2017 13:47:46 Acute sinusitis 30239578 J01.90 [id number] SVETA Botello [place] [address] [address] [facility] [place] [address] 07/04/2017 09:43:37 07/04/2017 10:58:45 Inflammation of sacroiliac joint 99028955 M46.1 [id number] SVETA Botello [place] [address] [address] [facility] [place] [address] 09/14/2017 13:13:50 09/14/2017 14:05:56 Right upper quadrant pain 072976294 R10.11 Edema of l ower extremity 255043124 R60.0 Heel pain 5912485 M79.67 1 Acute urin nancy tract infection 405811420 N39.0 [id number] Godfrey ChenmargaritoBETY mckinneyN Epif[facility] [place] [address] [address] [facility] [place] [address] 02/19/2018 09:39:32 02/19/2018 10:53:50 Acute sinusitis 01613645 J01.90 Body mass index 30+ - obesity 565002950 Z68.31 Gastroesop hageal reflux disease without esophagitis 195922024 K21.9 Dysuria 52181840 R30.0 [id number] Godfrey ChencoleenBETYN [place] [place] [address] [place] [address] 03/18/2018 08:46:13 03/18/2018 10:39:28 Administration of influenza vaccine 78085963 Z23 Administra tion of pneumococcal vaccine 96688287 Z23 Essential hypertension 81339177 I10 Right flank pain 5745370 09 R10.9 Umbilical pain 16582296 R10.33 Screening for malignant neoplasm of colon 383678988 Z12.11 [id number] Catia Song APRN [place] [address] [address] [place] [address] 04/01/2018 09:45:27 04/01/2018 10:42:25 Axillary lymphadenopathy 631684438 R59.0 [id number] Godfrey Trimble APRN [place] [address] [place] [place] [address] 05/21/2018 09:01:07 05/21/2018 09:36:56 Pain of sacroiliac joint 002932938 M53.3 [id number] Godfrey Trimble APRN [place] [address] [place] [place] [address] 08/12/2018 10:10:54 08/12/2018 11:09:04 Cough 83623451 R05 Acute sinusitis 79191148 J01.90 Nausea 795672726 R11.0 [id number] Godfrey Trimble APRN [place] [address] [address] [place] [address] 11/12/2018 10:45:36 11/12/2018 11:22:46 Acute urinary tract infection 699553133 N39.0 [id number] Godfrey Trimble APRN [place] [address] [address] [place] [address] 01/01/2019 10:07:53 01/01/2019 10:39:50 Onychomycosis of toenails 705873753 B35.1 Pain of breast 56594577 N64.4 [id number] MD Shanti High DESIGN TRANSFERRER [address] [facility] [place] [id number] 01/17/2019 10:28:51 01/17/2019 11:36:30 Pain of breast 30614732 N64.4 Mastodynia bilateral without focal mass or skin changes to suggest infection. Has had up-to-date imaging that has been reassuring . Order placed for advised April imaging with screening mammograph y and bilateral ultrasound .Has never had focally palpable or imageable mass in the right axilla. Suspect fibrocysti c changes and caffeine excess. Reviewed imaging findings are not causes of her pain. Reassuranc e .advised gradual decrease in caffeine if she is truly at that amount and vitamin E over-the-c ounter, and otc anti-infla mmatories as needed Excessive caffeine intake 2513681897 79972 R63.8 Adverse re action to caffeine 626570279 T43.615A Describes 8 L Mountain Dew per day which is excessive. Advised decreasing this gradually. Might anticipate withdrawal headaches if quits to quickly Postsurgic al menopause 850414698 E89.41 BSO 20 years ago without replacemen t not currently symptomati c. We do not have records although I did the surgery due to long gap in care. Records request and advise return to routine care Fibrocysti c disease of breast 81087161 N60.19 Screening for malignant neoplasm of breast 507456052 Z12.31 Patient aware of due date for next Mammogram as indicated below. April 2019 she will be notified by facility of result after completion . Advise yearly Clinical Breast exam with Annual exam. Mammography abnormal 168 587533 R92.8 Suspected bilateral oil cyst stable 12 18 through 5 19 recheck 12 19 per radiology. I do not feel this is part of patient's symptomato logy [id number] SVETA Botello [facility] [address] [facility] [place] [address] 02/03/2019 13:23:24 02/03/2019 14:14:34 Low back pain 711915487 M54.5 Inflammati on of sacroiliac joint 12745161 M46.1 [id number] SVETA Botello [facility] [address] [facility] [place] [address] 02/26/2019 08:46:04 02/26/2019 09:40:35 Acute urinary tract infection 957475045 N39.0 [id number] SVETA Botello [place] [address] [address] ARREDONDORUBÉNSarah [facility] [place] [address] 03/19/2019 08:32:31 03/19/2019 09:30:58 General examination of patient 600852544 Z00.00 Exercises education, guidance, and counseling 095043361 Z71.82 Dietary ma nagement surveillance [id number] Z71.3 Administra tion of diphtheria, pertussis, and tetanus vaccine 167195001 Z23 Bilateral wrist pain 732 [id number] 2671863 M25.531 Body mass index 25-29 - overweight 076835416 Z68.29 Essential hypertension 58518271 I10 Administra tion of influenza vaccine 52931128 Z23 Weight gain 9386654 R63. 5 [id number] SVETA Botello [place] [address] Erika dhillon Carlo COLEMAN [facility] [place] [address] 07/02/2019 10:07:44 07/02/2019 11:01:25 Pre-surgery evaluation 401779291 Z01.114 [id number] SVETA Botello [place] [address] Erika dhillon Carlo ARREDONDORUBÉNSarah [facility] [place] [address] 07/28/2019 15:05:56 07/28/2019 15:28:14 Nausea 878678095 R11.0 Postoperative visit 1836 58063 Z09 [id number] SVETA Harrington [place] [address] Bryondaria alejo Carlo COLEMAN [facility] [place] [address] 10/13/2019 10:10:55 10/13/2019 11:23:55 Pain of breast 33067263 N64.4 Mastodynia of right breast 8949260369 0756515 N64.4 Medication monitoring 39 7755312 Z51.81 [id number] SVETA Botello [place] [address] Bryondaria COLEMAN [facility] [place] [address] 01/16/2020 09:01:22 01/16/2020 09:24:20 Onychomycosis of toenails 530519756 B35.1 [id number] SVETA Botello [place] [address] [place] [address] 05/31/2020 10:29:26 05/31/2020 11:07:55 Abnormal urine odor 4531181 R82.90 [id number] Godfrey TrimbleBETYN [place] [address] Erika [facility] [place] [address] 07/07/2020 10:15:34 07/07/2020 10:59:50 Insomnia 742833152 G47.00 Anxiety 99014387 F41.9 [id number] Catia Song APRN [facility] [place] [address] [place] [address] 08/30/2020 11:40:36 08/30/2020 12:28:11 Viral screening 540010139 Z11.52 negative Sinusitis 71493474 J32.9 increase water intake, rtc as needed Nausea 841617187 R11.0 increase water intake, watch for signs of dehydratio n. rtc as needed [id number] Marina Pandya APRN [facility] [place] [address] [place] [address] 09/10/2020 10:43:22 09/10/2020 11:56:58 Dog bite 973904970 W54.0XXA Administra tion of influenza vaccine 32229833 Z23 Administra tion of pneumococcal vaccine 26425662 Z23 [id number] Godfrey Trimble APRN [place] [address] [place] [address] 01/07/2021 09:29:24 01/07/2021 10:29:06 Candidiasis of mouth 74105482 B37.0 Muscle spa sm of cervical muscle of neck 2220801494 04 M62.811 [id number] Godfrey Trimble APRN [place] [address] [place] [address] 06/01/2021 09:39:26 06/01/2021 10:39:21 Pain of right wrist 4685071953 [address] Arauz' office for this. Essential hypertension 78638945 I10 Body mass index 30+ - obesity 672269380 Z68.31 [id number] Godfrey Trimble [employer]ATOR [facility] [place] [address] [place], [place] [address] 06/08/2021 10:49:41 06/08/2021 11:19:23 Viral screening 007357092 Z11.52 Nausea 076200379 R11.0 [id number] Godfrey Trimble [employer] O[employer] [facility] [place] [address] [place], [place] [address] 06/27/2021 14:01:34 06/27/2021 14:39:49 Essential hypertension 44667004 I10 [id number] Godfrey Atilio [employer] [facility] [place] [address] [place], [place] [address] 08/01/2021 14:07:15 08/01/2021 14:34:46 Acute sinusitis 64135526 J01.90 [id number] Godfrey AtilioBETYN [place] [address] [place], [place] [address] 01/20/2022 10:16:12 01/20/2022 11:03:47 Screening mammography 67858778 Z12.31 Intermitte nt palpitations 997104758 R00.2 [id number] Godfrey AtilioBETYN [place] [address] [place] [address] 05/09/2022 10:24:20 05/09/2022 11:19:47 Essential hypertension 14760038 I10 Administra tion of SARS-CoV-2 antigen vaccine 329086132 Z23 Acute sinusitis 54073729 J01.90 Obstructiv e sleep apnea syndrome 68384129 G47.33 Umbilical pain 76650472 R10.33 [id number] Godfrey Trimble [employer] O[employer]ATOR [facility] [place] [address] [place] [address] 07/24/2022 09:10:36 07/24/2022 09:43:27 Acute sinusitis 78819718 J01.90 [id number] Godfrey Trimble SVETA [place] [address] [place] [address] 08/04/2022 10:46:24 08/04/2022 11:31:01 Otitis externa of right ear 1373033906 692213 H60.91 Nausea 665646258 R11.0 [id number] Godfrey Trimble APRN [facility] [address] Erika COLEMAN 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 [place] [address] 01/23/2023 13:03:48 01/23/2023 13:39:58 Acute sinusitis 27120629 J01.90 Epigastric pain 82712713 R10.13 [id number] [facility] [place] [address] Erika dhillon Carlo EPIFANIO [facility] [place] [address] 05/15/2023 09:06:00 05/15/2023 10:10:48 Influenza vaccine needed 8047707989 106 Z23 [id number] Godfrey Trimble APRN [place] [address] [place] [address] 06/26/2023 14:11:55 06/26/2023 14:51:09 Tobacco dependence syndrome 23285990 F17.200 Body mass index 25-29 - overweight 192675891 Z68.29 Overweight 534426092 E66 .3 [id number] Godfrey Trimble [employer] O[employer]ATOR [facility] [place] [address] [place] [address] 07/11/2023 11:40:18 07/11/2023 12:04:16 Low back pain 625841644 M54.50 [id number] Godfrey ChencoleenBETYN [place] [address] Erika COLEMAN [facility] [place] [address] 12/28/2023 08:55:09 12/28/2023 09:37:13 Low back pain 190129494 M54.50 Long-term drug therapy 592666781 Z79.619 [id number] Godfrey TrimbleBETYN [place] [address] Erika COLEMAN [facility] [place] [address] 06/11/2024 10:21:38 06/11/2024 10:59:47 Low back pain 649283709 M54.50 Influenza vaccine needed 1431421547 106 Z23 Insomnia 075378829 G47.0 0 Long-term drug therapy 978391906 Z79.282 [id number] Godfrey Trimble APRN [facility] [place] [address] Erika [facility]MAN [facility] [place] [address] 07/29/2024 08:20:09 07/29/2024 09:03:26 Viral screening 656797634 Z11.52 Acute sinusitis 62305418 J01.90 Allergic rhinitis 618075 04 J30.9 Endocrine/ metabolic screening 990383832 Z13.493 [id number] Ni Murguia APRN [place] [place] [address] Erika dhillon Carlo EPIFANIO [facility] [place] [address] 08/28/2024 15:08:13 08/28/2024 15:27:12 Dysuria 91085423 R30.0 Pain in fe male genitalia on intercourse 85081449 N94.10 Body mass index 25-29 - overweight 726367550 E66.3 Overweight 774824383 E66 .3 [id number] SVETA Botello [facility] [address] [place] [address] 10/27/2024 13:49:52 10/27/2024 14:26:33 Numbness of lower limb 535002913 R20.0 Spasm 86229740 M62.838 Health Concerns Section Related Observation LastModified by Organization Detai ls LastModified Time None Recorded Concern Status LastModified by Organization Details LastModified Time None Recorded Advance Directives Directive N: Payers Insurance Date Sequence Insurance Name Policy Number Policy Rao Covered Member ID Rao Member ID Guarantor Name 06/10/2024 1 [place] [facility] [id number] [id number] Ilda Gonzales 05/20/2017 1 [facility] Janet [id number] Ilda Gonzales 10/27/2024 [place] [facility] [id number] Ilda Gonzales [id number] Ilda Gonzales 10/27/2024 1 [facility] (MEDICAID REPLACEMENT - HMO) Genia Gonzales [id number] Ilda Gonzales 08/24/2016 1 UNSPECIFIED REMIT PAYOR Ilda Gonzales 01/04/2021 [place] [facility] [id number] Ilda Gonzales [id number] Ilda Gonzales 09/14/2017 1 *SELF PAY* Genia Gonzales 01/04/2021 1 [place] [facility] [id number] Ilda Gonzales [id number] Ilda Gonzales Notes Date Note Type Note Provider Name and Address Organization Details Recorded Time 12/28/2023 text/html Patient Ilda Janet, presents today needing refills on tramadol for chronic back pain. Patient has seen Dr. Jurado and is scheduled to have two injections in back on 01/01/24. Godfrey SVETA Trimble [address], [place], [address], [place] - [facility] 12/28/2023 09:40:10 06/11/2024 text/html Patient Ilda Gonzales, presents today needing refills on tramadol for stable chronic back pain. She would like a flu shot today. Patient states that she isn't sleeping well. Hydroxyzine is not working well anymore. Godfrey SVETA Trimble [address], [place], [address], [place] - [facility] 06/11/2024 11:11:04 07/29/2024 text/html Ilda Gonzales i s here today stating that she feels like she has flu symptoms .She reports Sinus Issues, Body Aches, Fatigue, left side of face is tender, sneezing.Symptoms started 4 days ago. Godfrey Trimble APRN [address], [place], [address], [place] - [facility] 07/29/2024 09:21:33 08/28/2024 text/html Patient states s he feels pressure while urinating and has visible blood on toilet paper.Has felt pressure and was worried that she had a kidney infection.She shows me photos on her phone of toilet paper with light blood. In greater discussion with her she does have intercourse and with certain positions it is painful. She does report that she is moist, never dry.Hx of hysterectomy in her 20's.No fever/chills.Just got engaged last night. Ni Murguia, [employer] MACHINE OPERATOR [address], [place], [address], [place] - [facility] 08/28/2024 15:32:51 10/27/2024 text/html Patient Ilda Gonzales, presents today with complaints of bilateral hip (stinging sensation)/leg pain.States she had bilateral hip injections on 10/14/24 by the pain clinic at [facility]. Since then, she states she is unable to stand, and unbalanced when walking. States that she is having a jerking in her right arm daily. Godfrey Trimble APRN [address], [place], [address], [place] [facility] 10/27/2024 14:26:58 OBGyn Episode No OBEpisode recorded.
[2024-10-29 14:40] VITALS: BP 117/72; PULSE 95; RESP 16; O2SAT 99; BMI 25.9
--- NOTE | 2024-10-29 14:56 | EXP.PAIN.SOA ---
[facility] Disclaimer: The information contained in this section may have been updated after the patient was seen, as this information can be updated by other users. Medical History HTN (hypertension) GERD (gastroesophageal reflux disease) Fibromyalgia Surgical History History of knee replacement procedure of left knee Hx of cholecystectomy H/O: hysterectomy Hx of tonsillectomy Family History Other Cancer Hypertension Seizures Social History Smoking Status: Never smoker alcohol intake: never current occupational status: other Travel in the last 8 weeks?: None PM Subjective & Objective Subjective Subjective:: Patient is a pleasant 49-year-old female who presents today for follow-up of her bilateral bursa injections on 10/14/2024. Patient does state that she had 100% relief on the right side and is still doing well with this injection. She does state however that along the left side he ended up hitting something in the process and cause severe pain. She states it is a sharp shooting pain with worse with increased pressure on that hip. Patient states even now she is having to stay off of the left hip due to the worsening pain. Patient does have chronic low back pain as well. She denies any new falls or injuries. Patient is currently managed with baclofen 5 mg 3 times a day and pregabalin 25 mg at bedtime from our office. She does state that the pregabalin did really seem to help ease down some of the nerve pain. Patient is prescribed tramadol from an outside provider. Her Epifanio has been reviewed and is appropriate. Review of Systems: General: No recent weight changes, no fever, no sleep disturbances Respiratory: No cough, no shortness of air, no recurring pulmonary infections Cardiovascular/peripheral vascular: No chest pain, no palpitations, no edema, no shortness of breath Gastrointestinal: No new onset incontinence, normal bowel movements reported Genitourinary: No new onset incontinence Musculoskeletal: Chronic low back pain, left hip pain Psychiatric: [Normal mood/affect] Neurological: [Denies weakness in extremities], [denies balance issues] Pain at rest (0-10 scale): 8 Objective Objective:: Physical Exam: General: Alert and oriented x3, no acute distress, pleasant and cooperative Lungs: Respirations even and unlabored, symmetrical chest expansion Eyes: PERRL Musculoskeletal: Flexion and extension of lumbar [spine] somewhat guarded secondary to pain, [antalgic gait noted] extreme point tenderness left bursa Neurological: Speech clear, no gross sensory deficit Has patient had previous pain injection?: Yes Percent improvement in pain since last injection: 100% on the right Conservative treatment options previously tried: Home exercise plan Length of treatment: Longer than 12 weeks Meds Home Medications and Allergies Home Medications ?Medication ?Instructions ?Recorded ?Confirmed ?Type cyclobenzaprine 10 mg tablet 10 mg PO QIDP PRN . 12/20/23 10/29/24 History esomeprazole magnesium 40 mg 40 mg PO BID GERD 12/20/23 10/29/24 History capsule,delayed release famotidine 20 mg tablet 20 mg PO BID GERD 12/20/23 10/29/24 History hydrochlorothiazide 25 mg tablet 25 mg PO DAILYP PRN Fluid 12/20/23 10/29/24 History hydroxyzine HCl 25 mg tablet 25 mg PO HSP PRN Sleep 12/20/23 10/29/24 History loratadine 10 mg tablet 10 mg PO DAILYP PRN ALLERGIES 12/20/23 10/29/24 History losartan 50 mg tablet 50 mg PO BID BLOOD PRESSURE 12/20/23 10/29/24 History metoclopramide HCl 10 mg tablet 10 mg PO Q6H GERD 12/20/23 10/29/24 History metoprolol succinate 100 mg 100 mg PO DAILY BLOOD PRESSURE 12/20/23 10/29/24 History tablet,extended release 24 hr sertraline 50 mg tablet 50 mg PO DAILY MOOD 12/20/23 10/29/24 History tramadol 50 mg tablet 50 mg PO QIDP PRN Pain 12/20/23 10/29/24 History baclofen 5 mg tablet 5 mg PO TID #90 tabs 06/12/24 10/29/24 Rx pregabalin 25 mg capsule 25 mg PO HS #30 caps 10/13/24 10/29/24 Rx New Prescriptions to Start Prescriptions: Allergies Allergy/AdvReac Type Severity Reaction Status Date / Time acetaminophen AdvReac Verified 01/01/24 13:57 albuterol AdvReac Verified 01/01/24 13:57 fentanyl AdvReac Verified 01/01/24 13:57 hydrocodone AdvReac Verified 01/01/24 13:57 meperidine AdvReac Verified 01/01/24 13:57 morphine AdvReac Verified 01/01/24 13:57 oxycodone AdvReac Verified 01/01/24 13:57 Sulfa (Sulfonamide AdvReac Verified 01/01/24 13:57 Antibiotics) Assessment and Plan *Assessment and plan (1) Greater trochanteric bursitis of both hips: Status: Acute Category: Medical Code(s): M70.61 - Trochanteric bursitis, right hip; M70.62 - Trochanteric bursitis, left hip (2) Myofascial pain on left side: Status: Acute Category: Medical Code(s): M79.18 - Myalgia, other site Plan Patient did have questions regarding the lumbar ablation for future. I did review over risk and benefits and she would like to speak to her fianc?/boyfriend regarding this injection. I did debt management counselor her to just let us know if that something in future she would like to see about if she would be a beneficial candidate. I will make sure she has refills on her pregabalin and baclofen and see her back in 1 month. Patient was counseled that hopefully the pain in the left hip does ease up however if it does get worse to please call us and we did discuss the possibility of some oral steroids. We will continue to monitor this. Patient agrees with this plan of care. Patient has been instructed to contact the clinic with any concerns before the next appointment. Dr. Jurado has reviewed this note and agrees with this plan of care. This note was dictated using voice recognition software and make contain errors or omissions. All injections are used with Lidocaine, Bupivacaine and dexamethasone. Occasionally urine drug screen is needed to verify patient's compliance with our office pain contract. This is ordered based off specific treatments related to chronic pain with the potential to abuse certain medications.
== END 2024-10-29 23:59 | disposition home or self-care (01) ==
PROVIDERS: Visit Provider Nurse Practitioner Family
DX: M70.61 Trochanteric bursitis, right hip (principal); M70.62 Trochanteric bursitis, left hip; Z79.899 Other long term (current) drug therapy
CPT/HCPCS: 99212; G0463

== ENCOUNTER 2024-12-01 13:26 | Outpatient (POV) | payer MEDICAID, SELFPAY ==
--- OUTSIDE RECORDS SUMMARY | 2024-11-11 14:30 | XMS_ITS | Encounter Summary ---
Author Organization [employer] ([place], [place], [place], [place]) Address [address] [place] [address] Care Team Providers Care Circulation Supervisor Name Role Phone Bennie Arauz MD Primary Care Provider [phone] Reason for Visit * Reason Comments Knee Pain Left knee s/p 020 Encounter Details Date Type Department Care Team (Late st Contact Info) Description 11/11/2024 2:30 PM EDT Office Visit [facility] - [address] [address] Brandon Mitchell MD [address] [place] [id number] Status post total left knee replacement (Primary Dx); Chronic pain of right knee; Weakness of both lower extremities; Bilateral lumbar radiculopathy; Bulge of lumbar disc without myelopathy Social History Tobacco Use Types Packs/Day Years Used Date Smoking Tobacco: Every Day Cigarettes Passive Smoke Exposure: Never Smokeless Tobacco: Never Tobacco Cessation:Ready to Q uit: Not Asked; Counseling Given: Not Answered Alcohol Use Standard Drinks/Week Comments Never 0 (1 standard drink = 0.6 oz pur e alcohol) Family and Community Support Answer Ronn e Recorded Help with Day to Day Activities Not on file 05/20/2023 Feeling Lonely or Isolated Not on file 05/20 Educational Attainment Answer Date Jeremie rded Speak language other than Zambian at home Not on file 05/20/2023 Want help with school or training Not on file 05/20/2023 Substance Use Answer Date Recorded Used prescription meds for non-medical reasons N ot on file 05/20/2023 Used illegal drugs past 12 months Not on file 05/20/2023 Comments Unknown Sex and Gender Information Value Date Recorded Sex Assigned at Not on file Legal Sex Female 5:46 PM CDT Gender Identity Not on file Sexual Orientation Not on file documented as of this encounter Last Filed Vital Signs Vital Sign Reading Time Taken Comments Blood Pressure 121/77 11/11/2024 3:08 PM EDT Pulse 83 11/11/2024 3:08 PM EDT Temperature - - Respiratory Rate 18 11/11/2024 3:08 PM EDT Oxygen Saturation - - Inhaled Oxygen Concentration - - Weight 90.7 kg (200 lb) 11/11/2024 3:08 PM EDT Height 170.2 cm (5' 7 ) 11/11/2024 3:08 PM EDT Body Mass Index 31.32 11/11/2024 3:08 PM EDT documented in this encounter Progress Notes * Brandon Mitchell MD - 11/11/2024 2:30 PM EDT Images from the original note were not included. NAME: Genia Gonzales CSN: [id number] : 1975 PCP: Bennie Arauz MD REASON FOR VISIT Knee Pain (Left knee s/p 07/15/2019) HPI Genia Gonzales is a 49 y.o. female Established patient presents for left leg pain. Patient had a left total knee replacement with Dr. Arauz on 07/15/2019. Patient reports she has a lot of swelling in the anterior aspect and posterioraspect/ Patient reports that she fell a couple of months ago and hit it on concrete. Patient reports that there is popping and grinding. Patient reports that she is taking Tramadol with Pain management for lower back pain and leg pain. Patient reports that pain level is 5/10 CURRENT MEDICATIONS Current Outpatient Medications Medication Instructions baclofen (LIORESAL) 10 mg, oral, 3 times daily cyclobenzaprine (FLEXERIL) 10 mg, oral, 4 times daily PRN esomeprazole (NEXIUM) 40 mg, oral, Daily famotidine (PEPCID) 20 mg, oral, 2 times daily hydroCHLOROthiazide (HYDRODIURIL) 25 mg, oral, Daily as needed hydrOXYzine (ATARAX) 50 mg, oral, Every Night PRN loratadine (CLARITIN) 10 mg, oral, Daily as needed losartan (COZAAR) 50 mg, oral, 2 times daily metoclopramide (REGLAN) 10 mg, oral, Every 6 hours interval metoprolol succinate (TOPROL-XL) 100 mg, oral, Daily sertraline (ZOLOFT) 50 mg, oral, Every Night traMADoL (ULTRAM) 50 mg, oral, Every 6 hours PRN ALLERGIES Allergies Allergen Reactions Acetaminophen Nausea And Vomiting Albuterol Sulfate Fentanyl Nausea And Vomiting Other reaction(s): Nausea / Vomiting / Diarrhea Hydrocodone Bitartrate Other reaction(s): Vomiting Hydrocodone-Acetaminophen Other reaction(s): Nausea / Vomiting / Diarrhea Meperidine Nausea And Vomiting Other reaction(s): Nausea / Vomiting / Diarrhea Morphine Nausea And Vomiting Other reaction(s): Nausea / Vomiting / Diarrhea Oxycodone-Acetaminophen Other reaction(s): Nausea / Vomiting / Diarrhea Sulfa (Sulfonamide Antibiotics) PAST MEDICAL/SURGICAL HISTORY Past Medical History: Diagnosis Date Fibromyalgia GERD (gastroesophageal reflux disease) Hypertension Past Surgical History: Procedure Laterality Date CHOLECYSTECTOMY HYSTERECTOMY JOINT REPLACEMENT TONSILLECTOMY SOCIAL HISTORY Social History Tobacco Use Smoking status: Every Day Types: Cigarettes Passive exposure: Never Smokeless tobacco: Never Substance Use Topics Alcohol use: Never Drug use: Never FAMILY HISTORY Family History Problem Relation Name Age of Onset Seizures Other Cancer Other High blood pressure Other REVIEW OF SYSTEMS ROS Systemic: Not feeling tired. No fever and no chills. Head: No headache and no sinus pain. Otolaryngeal: No new hearing loss and no nasal passage blockage (stuffiness) within the last 24 hours. Cardiovascular: No chest pain or discomfort and no palpitations. Pulmonary: No dyspnea, wheezing or new cough within the last 24 hours. Gastrointestinal: No heartburn. No nausea. Genitourinary: No urinary loss of control. Endocrine: No temperature intolerance and no new muscle weakness. Musculoskeletal: Musculoskeletal symptoms See HPI. Neurological: No tremor. Psychological: No new anxiety and no recent insomnia. Skin: No localized skin discoloration and no rash. OBJECTIVE Vitals: 11/11/24 1508 BP: 121/77 Pulse: 83 Resp: 18 Weight: 90.7 kg (200 lb) Height: 1.702 m (5' 7 ) Body mass index is 31.32 kg/m??. Ortho Exam Constitutional: She appears well-developed and well-nourished. Head: Normocephalic and atraumatic. Eyes: No scleral icterus. Neck: No edema and normal range of motion present. Pulmonary/Chest: Effort normal. No accessory muscle usage. No respiratory distress. Neurological: She is alert and cooperative Skin: Skin is warm and dry. No rash noted. Psychiatric: She has a normal mood and affect. Her behavior is normal. Clinical assistant professor of dietetics note and vitals reviewed Bilateral knee Inspection: Normal muscular bulk, no asymmetry, no bony deformity, no overt effusion, no skin redness or rash. Well healed surgical incision over the anterior left knee Palpation: point tenderness - Patella: Nontender - Quadriceps Tendon: Nontender - Patellar Tendon: Nontender - Tibial Tubercle: Nontender - Joint Line: tender - Pes Anserine bursa: Nontender - Adductor Tubercle: Nontender - Sartorius/Gracilis: Nontender - Posterior Knee: Nontender Range of motion: - Passive Knee: Extension 0 degrees - Passive Knee Flexion: 130 degrees - Active Knee Extension (L1-L3): 0 degrees - Active Knee Flexion (L4-S3): 130 degrees - Dorsiflexion (L4-Peroneal n): 5/5 - Plantarflexion (S1-Tibial n): 5/5 Standing: - Gait: Antalgic lumbar/sacral back Inspection: No Kyphosis, lordosis, or scoliosis - Gait: Staggering with heel (L5) and toes (S1) walking - Leg Length: Even - Palpation: - No step off - Iliac crests even - SI joint: tender - Spinous processes: tender - Paraspinal muscles: tender - Lat dorsi: non-tender - Anterior hip joint: tender - Greater trochanter: tender - ROM back: Normal flexion (without pain) Limited extension (with pain) Lateral bending limited to the right and left (with pain) Reflexes Right Left L4: Patellar 1/4 2/4 S1: Achilles 1/4 1/4 SLR Negative Slump Negative IMAGING/OUTSIDE REPORTS 11/11/2024 XR Bilateral Knee 2 views Findings: Total knee arthroplasty hardware intact left knee. Moderate tricompartmental joint space narrowing of the right knee with sclerotic change. No fracture or dislocation is identified. There is no soft tissue swelling or joint effusion. Impression: Kellgren-Bo Grade 3 osteoarthritis, right knee Personally read, reviewed and interpreted Brandon Mitchell MD INTERVAL HISTORY 12/19/2022 bilateral carpal tunnel injection, US guided LTKA, DOS 07-15-2019 ASSESSMENT Diagnoses and all orders for this visit: Status post total left knee replacement - X-ray knee bilateral PA and lateral Chronic pain of right knee - X-ray knee bilateral PA and lateral Weakness of both lower extremities Bilateral lumbar radiculopathy Bulge of lumbar disc without myelopathy PLAN Rest the extremity Heating pad for 20 minutes 2-3 times a day Physical therapy and Home exercises Patient has had previous lumbar injections at [facility] Discussed the knee exam was normal and feel that this is more back related Discussed and recommended follow up with Bakari Bernstein for lumbar spine evaluation Discussed possible repeat carpal tunnel injections as it has been since 2022 that we have done injection Explanation of plan: Based on patient's history, physical exam, review of radiology exams Ilda hasmoderate osteoarthritis of the right knee without significant pain or tenderness today. However, she does have fairly significant lower back pain and is quite tender on exam. She is unable to walk onher heels or toes. I am concerned about lower lumbar nerve entrapment. I would like her to see Gerda for further evaluation and consideration. Return to clinic if condition worsens or new symptoms arise Return in about 8 weeks (around 01/06/2025) for possible bilateral carpal tunnel injections . I, Brandon Mitchell MD, personally performed the services described in this documentation, as scribedby Rachael Tomas CMA , in my presence, and is both accurate and complete. Electronically Signed, Brandon Mitchell MD 11/12/2024 2:19 PM documented in this encounter Plan of Treatment Upcoming Encounters Date Type Department Care Team (Late st Contact Info) Description 01/06/2025 2:00 PM EDT Office Visit [facility] - [address] [address] Brandon Mitchell MD [address] [place] [address] documented as of this encounter Procedures Procedure Name Priority Date/Time Associated Diagnosis Comments XR KNEE BILATERAL PA AND LATERAL Routine 11/11/2024 3:02 PM EDT Status post total left knee replacement Chronic pain of right knee documented in this encounter Results * X-ray knee bilateral PA and lateral (11/11/2024 3:02 PM EDT) Anatomical Region Laterality Modality Thigh, Knee, Leg X-Ray Narrative 11/20/2024 7:58 AM EDT 11/11/2024 XR Bilateral Knee 2 views Findings: Total knee arthroplasty hardware intact left knee. Moderate tricompartmental joint space narrowing of the right knee with sclerotic change. No fracture or dislocation is identified. There is no soft tissue swelling or joint effusion. Impression: Kellgren-Bo Grade 3 osteoarthritis, right knee Personally read, reviewed and interpreted Brandon Mitchell MD us Brandon Mitchell MD IMG DIAGNOSTIC IMAGING ORDERABLE S Final Result documented in this encounter Visit Diagnoses Diagnosis Status post total left knee replacement- Primary Chronic pain of right knee Weakness of both lower extremities Bilateral lumbar radiculopathy Bulge of lumbar disc without myelopathy documented in this encounter Care Teams Circulation Supervisor Relationship Specialty Start Date End Date Bennie Arauz MD [address] [place] [phone] PCP - General Orthopedic Surgery 06/23/23 documented as of this encounter
--- OUTSIDE RECORDS SUMMARY | 2024-11-11 15:00 | XMS_ITS | Encounter Summary ---
Author Organization [employer] ([place], [place], [place], [place]) Address [address] [place] [address] Care Team Providers Care Java Support Engineer Name Role Phone Bennie Arauz MD Primary Care Provider [phone] Encounter Details Date Type Department Care Team (Late st Contact Info) Description 11/11/2024 3:00 PM EDT Ancillary Procedure [facility] - [address] [address] Brandon Mitchell MD [address] [place] [phone] Social History Tobacco Use Types Packs/Day Years Used Date Smoking Tobacco: Every Day Cigarettes Passive Smoke Exposure: Never Smokeless Tobacco: Never Alcohol Use Standard Drinks/Week Comments Never 0 (1 standard drink = 0.6 oz pur e alcohol) Family and Community Support Answer Ronn e Recorded Help with Day to Day Activities Not on file 05/20/2023 Feeling Lonely or Isolated Not on file 05/20 Educational Attainment Answer Date Jeremie rded Speak language other than Albanian at home Not on file 05/20/2023 Want [...] on file documented as of this encounter Plan of Treatment Upcoming Encounters Date Type Department Care Team (Late st Contact Info) Description 01/06/2025 2:00 PM EDT Office Visit [facility] - [address] [phone] Brandon Mitchell MD [address] [place] [address] documented as of this encounter Procedures Procedure [...] Result documented in this encounter Visit Diagnoses Not on filedocumented in this encounter Care Teams Java Support Engineer Relationship Specialty Start Date End Date Bennie Arauz MD [address] [place] [phone] PCP - General Orthopedic Surgery 06/23/23 documented as of this encounter
--- OUTSIDE RECORDS SUMMARY | 2024-12-01 13:37 | XMS_ITS | Continuity of Care Document ---
Author Organization [facility] - [facility] & [place], [facility] Address [address] [place] [address] Aashish gillis [facility] [address] [place] [address] Assessment No assessment recorded. Plan of Treatment Reminders Order Date Submit Date Provider Last Modified By Organization Details Last Modified Time Details Appointments None recorded. Lab drug screen, urine - can be urine or bloody LC [id number] [facility] 2024 025 [facility] (Registration ), [address] [place] [address] [place], [address], 14:11:07 Referral None recorded. Procedures None recorded. Surgeries None recorded. Imaging None recorded. Medication Orders None recorded. Patient TargetsNo targets recorded. Patient Instructions Encounter Date Encounter Id Patient Instructions Last Modified By Organization Details Last Modified Time 10/16/2024 [id number] TMJ injection pe r Dr. Au 11/12/24 [email or web address] Not available 10/16/2024 15:34:22 Reason for Referral None Reported. Results Created Date Observation Date Name Description Value Unit Range Abnormal Flag Note LastModifiedBy Organization Detail LastModifiedTime 10/17/1910/16/2024 COMPR EHENS ANGELO DRUG SCREE N note See Note Order ing Provi morgan: DANA LLMaureen TELESALES SUPERVISOR GILLI [employer] Not Available [address] [place], [address], 11/03/2024 11:42:02 10/17/19 25 10/16/2024 COMPR EHENS ANGELO DRUG SCREE N results: none AMPHE TAMIN ES,IA NEGAT ANGELO ng/mL Cutof f:50 ALFA TURAT ES,IA NEGAT ANGELO ug/mL Cutof f:0.1 BENZO DIAZE PINES ,[place] NEGAT ANGELO ng/mL Cutof f:20 COCAI NE/ME TABOL ITE,I A NEGAT ANGELO ng/mL Cutof f:25 PHENC YCLID INE,I A NEGAT ANGELO ng/mL Cutof f:8 THC(M ARIJU ELLIOT)M ETABO LITE, [place] NEGAT ANGELO ng/mL Cutof f:5 OPIAT ES,IA NEGAT ANGELO ng/mL Cutof f:5 OXYCO CROW ,IA NEGAT ANGELO ng/mL Cutof f:5 METHA DONE, [place] NEGAT ANGELO ng/mL Cutof f:25 FENTA NYL,I A NEGAT ANGELO ng/mL Cutof f:1.0 PROPO XYPHE NE,IA NEGAT ANGELO ng/mL Cutof f:50 MEPER IDINE ,IA NEGAT ANGELO ng/mL Cutof f:100 TRAMA DOL,I A POS ITIVE ng/mL Cutof f:50 This test was devel oped and its perfo rmanc e tyra cteri stics deter mined by [facility]. It has not been clear ed or appro marleen by the Food and Drug Admin istra tion. TRAMA DOL,M S,WB/ SP RFX Trama dol Confi rmati on Posit angelo Trama dol 264.3 ng/mL O-Ry methy ltram adol 23.3 ng/mL Confi rmati on thres hold: 10 ng/mL [facility] Dir: Cheyenne kincaid,Juanis Arteaga [address] [place] [address] For inqui virgilio, the physi oxana [address] [facility] [phone] Lab:[phone] Not Available [address] [place], [address], 11/03/2024 11:42:02 10/17/19 25 10/16/2024 COMPR EHENS ANGELO DRUG SCREE N performing lab see note LC2 - [facility] CLIEN T# [id number] 022 [address] [place] [address] Not Available [facility] [address], [place], [address], 11/03/2024 11:42:02 Result Notes None recorded. Problems Name Problem SNOMED Code Status Onset Date Resolution Date Notes Provider Name and Address Organization Details Recorded Time Obstructive sleep apnea syndrome 32027020 Active 2022 Rip Carl MD [address] [place] [address],[address], [place], [address], [place] - [facility] - [place] & [place] 3 07:18:56 Essential hypertension 75001814 Active 2022 Rose Marie kidd, [place] - [facility] & [place] 3 12:50:26 Hoarse 66790008 Active 2022 Rip Carl MD [address] [place] [address],[address], [place], [address], [place] - [facility] - [place] & [place] 3 11:56:15 Problem Notes None recorded. Procedures Surgical History Date Name Laterality Status Provider Name and Address Organization Details Recorded Time 11/15/19 23 EMG/ Nerve Conduction Study completed Ney Arteaga M.D [address] [place] [address], [address], [place], [address], [place] [facility] [place] & [place] 11/18/2022 16:56:24 04/10/20 22 completed Crystal Earlywine [place] - [facility] - [place] & [place] 08/11/2022 09:33:49 04/17/20 18 Date of Last Colonoscopy completed Crystal Earlywine [place] - [facility] - [place] & [place] 08/11/2022 09:33:49 cholecystectomy completed Liz Llamas [place] [facility] [place] & [place] 05/23/2022 08:27:30 hysterectomy completed Liz Llamas [place] - [facility] - [place] & [place] 05/23/2022 08:27:41 laparoscopy completed Liz VELAZQUEZ - L [facility] - [place] & [place] 05/23/2022 08:27:48 Other completed Crystal Earlywine [place] - [facility] - [place] & [place] 08/11/2022 09:33:50 Imaging Results None recorded. Procedure Notes None recorded. Medical Equipment None Reported. Allergies Allergen ID Allergen Name Allergen Category Reaction Reaction Severity Criticality Documentation Date Start Date Code Code System Note Provider Name and Address Organization Details Recorded Time 72308 Substance with sulfonami de structure and antibacte rial mechanism of action (substanc e) medicatio n Not available Not available Not available 05/23/2022 99807 8003 SNOMED Liz kidd, [place] - [facility] & [place] 3 08:23:54 41391 acetamino phen / hydrocodo ne medicatio n Not available Not available Not available 05/23/2022 96309 2 RxNorm Liz kidd, [place] - [facility] & [place] 3 08:24:00 [address]7091 fentanyl medicatio n Not available Not available Not available 05/23/2022 4337 RxNorm Liz kidd, [place] - [facility] - [place] & [place] 3 08:24:07 [address] acetamino phen / oxycodone medicatio n Not available Not available Not available 05/23/2022 51413 3 RxNorm Liz kidd, [place] - [facility] - [place] & [place] 3 08:24:14 16781 Demerol medicatio n Not available Not available Not available 05/23/2022 68164 1 RxNorm Liz kidd, [place] - [facility] - [place] & [place] 3 08:24:40 90032 Tylenol medicatio n Not available Not available Not available 05/23/202241642 3 RxNorm Liz kidd, [facility] - [facility] - [place] & [place] 3 08:24:45 42337 hydrocodo ne Not available Not available Not available Not available 05/23/2022 5489 RxNorm Liz kidd, [place] - [facility] - [place] & [place] 3 08:24:54 20199 morphine medicatio n Not available Not available Not available 05/23/2022 7052 RxNorm [facility] Rodriguez [facility] & [place] 3 08:25:00 91531 acetamino phen medicatio n Not available Not available Not available 10/11/2022 161 RxNorm [facility] Burgos [facility] & [place] 3 12:49:18 Medications Name Sig Start Date [...] Pulse oximetry Heart rate Respiratory rate Systolic And Diastolic Provider Name and Address Organization Details Last Updated DateTime 5 53521.6 1 g 98.1 [degF] 96 % 96 % 82 /min 16 /min 136/80 mm[Hg] Lynne Hoodd [place] - [facility] - [place] & [place] 5 13:09:01 Social History Question Answer Notes LastModified by Organizat ion Details LastModified Time Tobacco Smoking Status Former Smoker former 2 PPD x 15 years Crystal Earlywine [facility], [place] - [facility] - [place] & [place] 08/11/2022 09:43:18 Do You Have An Advance Directive? No Information not available 08/11/2022 Are You Blind Or Do You Have Difficulty Seeing? No Information not available 08/11/2022 When Did You Quit Smoking? 6-10yearssi ncelastciga rette Quit 2014 [email or web address] Information not available 02/27/2023 What Was The [...] anxious, or unable to sleep at night)? [id number] Information not available 08/11/2022 Family History Nothing [...] SNOMED-CT Code Diagnosis ICD10 Code Diagnosis Note [id number] LAWRENCE GARRETT [facility] [address] [address] 10/16/2024 12:59:57 10/16/2024 14:11:06 Temporomandibular joint disorder 07468154 M26.609 Health Concerns Section Related Observation LastModified by Organization Detai ls LastModified Time None Recorded Concern Status LastModified by Organization Details LastModified Time None Recorded Payers Encounter Date Sequence Insurance Name Policy Number Policy Rao Covered Member ID Rao Member ID Guarantor Name 10/16/2024 1 [facility] (MEDICAID REPLACEMENT - HMO) Ilda Gonzales [id number] Ilda Gonzales OBGyn Episode No OBEpisode recorded.
--- OUTSIDE RECORDS SUMMARY | 2024-12-01 13:37 | XMS_ITS | Clinical Summary ---
Author Organization [employer] ([place], [place], [place], [place]) Address [address] [place] [address] Care Team Providers Care It Help Desk Manager Name Role Phone Bennie Arauz MD Primary Care Provider [phone] Allergies Active Allergy Reactions Criticality Noted Date [...] mouth every 6 (six) hours. 10/22/2023 Active baclofen (LIORESAL) 10 MG tablet Take 1 tablet (10 mg total) by mouth 3 (three) times daily. Active Active Problems Problem Noted Date Diagnosed [...] wall of right acetabulum, initial encounter 09/05/2022 Encounters Date Type Department Care Team Description 11/11/2024 3:00 PM EDT Ancillary Procedure [facility] [address] [phone] Brandon Mitchell MD 11/11/2024 2:30 PM EDT Office Visit [address] [phone] Brandon Mitchell MD Status post total left knee replacement (Primary Dx); Chronic pain of right knee; Weakness of both lower extremities; Bilateral lumbar radiculopathy; Bulge of lumbar disc without myelopathy from Last 3 Months Family History Medical History Relation Name Comments [...] Date Jeremie rded Speak language other than Azeri at home Not on file 05/20/2023 Want [...] Pulse 83 11/11/2024 3:08 PM EDT Temperature 36.6 C (97.9 F) 06/23/2023 2:45 PM EST Respiratory Rate 18 11/11/2024 3:08 PM EDT Oxygen Saturation 95% 06/23/2023 2:45 PM EST Inhaled Oxygen Concentration - - Weight 90.7 kg (200 lb) 11/11/2024 3:08 PM EDT Height 170.2 cm (5' 7 ) 11/11/2024 3:08 PM EDT Body Mass Index 31.32 11/11/2024 3:08 PM EDT Plan of Treatment Upcoming Encounters Date Type Department Care Team (Late st Contact Info) Description 01/06/2025 2:00 PM EDT Office Visit [facility] [place] [address] [place] [phone] Brandon Mitchell MD [address] [place] [address] Health Maintenance Due Date Last Done Comments CT Colonography 1973 Colonoscopy 1973 Colorectal Cancer Screening 1973 FOBT/FIT 1973 Fit-DNA (Cologuard) 1973 Sigmoidoscopy 1973 Depression Screening (12+) 1985 Tobacco Cessation Counseling and Screening (12+) 1985 HIV Screening 1988 Hepatitis C Screening 1991 Pap Smear 1994 Lipid Panel 2018 Shingles Vaccine (Zoster) (1 of 2) 2023 COVID-19 VACCINE (2023-2 5 season) 2024 02/22/2023, 05/09/2022, 05/09/2022, Additional history exists Breast Cancer Screening 01/21/2024 01/20/2022, 10/01 Influenza Vaccine (#1) 2025 , 09/10/2020, 03/19/2019, Additional history exists Pneumococcal 50+ years (3 of 3 - PCV20 or PCV21) 09/10/2025 09/10/2020, 03/18/2018 DTAP/TDAP/TD VACCINES (2 - T d or Tdap) 03/19/2029 03/19/2019 Procedures Procedure Name Priority Date/Time Associated Diagnosis Comments XR KNEE BILATERAL PA AND LATERAL Routine 11/11/2024 3:02 PM EDT Status post total left knee replacement Chronic pain of right knee from Last 3 Months Results * X-ray knee bilateral PA and [...] IMG DIAGNOSTIC IMAGING ORDERABLE S Final Result from Last 3 Months Insurance [address] [place] [phone] [employer] Care Teams It Help Desk Manager Relationship Specialty Start Date End Date Bennie Arauz MD [address] [place] [phone] PCP - General Orthopedic Surgery 06/23/23
--- OUTSIDE RECORDS SUMMARY | 2024-12-01 13:37 | XMS_ITS | Referral Summary ---
Author Organization [employer] ([place], [place], [place], [place]) Address [address] [place] [address] Care Team Providers Care Separator Operator [employer] Name Role Phone Bennie Arauz MD Primary Care Provider [phone] Encounters Date Type Department Care Team Description 11/11/2024 3:00 PM EDT Ancillary Procedure [facility] [phone] Brandon Mitchell MD 11/11/2024 2:30 PM EDT Office Visit [address] [phone] Brandon Mitchell MD Status post total left knee replacement (Primary Dx); Chronic pain of right knee; Weakness of both lower extremities; Bilateral lumbar radiculopathy; Bulge of lumbar disc without myelopathy from Last 3 Months Allergies Active Allergy Reactions Criticality Noted Date [...] Date DDD (degenerative disc disease), lumbar 07/02/19 Status post total left knee replacement 07/02/19 Bilateral carpal tunnel syndrome 02/28/2023 Numbness and [...] Date Jeremie rded Speak language other than Wolof at home Not on file 05/20/2023 Want [...] Description 01/06/2025 2:00 PM EDT Office Visit [facility] - [address] [phone] Brandon Mitchell MD [address] [place], [place] [id number] Procedures Procedure Name Priority Date/Time Associated Diagnosis [...] Result from Last 3 Months Insurance [address] [place] [id number] [facility] MEDICAID Care Teams Separator Operator [employer] Relationship Specialty Start Date End Date Bennie Arauz MD [address] [place] [phone] PCP - General Orthopedic Surgery 06/23/23
--- OUTSIDE RECORDS SUMMARY | 2024-12-01 13:37 | XMS_ITS | Data Portability ---
Author Organization Formerly [facility] Address [address] [place] [address] Assessment No assessment recorded. Plan of Treatment Reminders Order Date Submit Date Provider Last Modified By Organization Details Last Modified Time Details Appointments None recorded. Lab urinalysis , [facility], [address], [place], [address], 5 15:24:18 culture, urine 2024 025 [facility], [address], [address], [place], [address], 5 22:10:45 [facility] (A+B) [facility] [address], [place], [address], 5 08:50:49 TSH + free T4, serum 2024 025 VINNY [facility], [address], [address], [place], [address], 5 08:29:38 CMP, serum or plasma 2024 025 [facility]INNY [facility], [address], [address], [place], [address], 5 08:29:40 vitamin D, 25-hydroxy , total, serum 2024 025 [facility], [address], [address], [place], [address], 5 08:29:42 CBC w/ auto diff 2024 025 [facility]INNY [facility], [address], [address], [place], [address], 5 08:29:39 lipid panel, serum 2024 025 [facility], [address], [address], [place], [address], 5 08:29:41 cobalamin and folate panel, serum 2024 025 [facility], [address], [address], [place], [address], 5 08:29:42 unlisted lab - toxassure flex 22, urine 2024 025 [facility], [address], [address], [place], [address], 5 09:07:36 unlisted lab - compliance drug suzi, no THC 2023 024 [facility]INNY [facility], [address], [place] [address], [place], [address], 4 20:09:35 Referral neurologis t referral 2024 025 [email or web address] [facility] [address] [facility] - Centralized Scheduling, [address] [place] [address], [address], 5 10:41:07 Procedures None recorded. Surgeries None recorded. Imaging None recorded. Medication Orders nitrofuran toin monohydrat e/macrocry stals 100 mg capsule 2024 025 [facility], [address] [place], [address], 5 13:18:41 fluticason e propionate 50 mcg/actuat ion nasal spray,susp ension 2024 025 [facility], [address] [place], [address], 5 11:14:26 amoxicilli n 500 mg capsule 2024 025 [facility], [address] [place], [address], 5 15:10:51 trazodone 150 mg tablet 2024 025 [facility], [address] [place], [address], 5 12:17:35 tramadol 50 mg tablet 2024 025 [facility], [address] [place], [address], 5 16:29:01 tramadol 50 mg tablet 2023 024 [facility], [address] [place], [address], 4 14:24:50 Patient TargetsNo targets recorded. Patient Instructions Encounter Date Encounter Id Patient Instructions Last Modified By Organization Details Last Modified Time 12/28/2023 [id number] Plan: - eKasper was appropriate and verified. - RTC if s/sx persist or worsen. [email or web address] Not available 12/28/2023 09:39:34 06/11/2024 [id number] insomnia: care instructions [email or web address] Not available 06/11/2024 10:48:05 Plan: - eKasper was appropriate and verified. - RTC if s/sx persist or worsen. [email or web address] Not available 06/11/2024 11:11:01 07/29/2024 [id number] allergies: care instructions [email or web address] Not available 07/29/2024 08:50:49 Acute Sinusitis: Care Instructions [email or web address] Not available 07/29/2024 08:50:49 Plan: - RTC if s/sx persist or worsen. [email or web address] Not available 07/29/2024 09:21:28 08/28/2024 [id number] painful urinatio n (dysuria): care instructions Not [...] her on how to use. Would recommend [facility] referral. She is willing to see Ingrid. [...] their choice. Not available 08/28/2024 15:31:10 10/27/2024 [id number] Plan: - Her next Pain Management appt [...] ===== ===== ===== === Not Available [facility] ([facility]) [address] [place], [address], 01/04/2024 20:09:35 12/28/19 24 01/04/2024 COMPL IANCE DRUG SUZI , NO THC pdf . Not Available [facility] ([facility]) [address] [facility], [place], [address], 01/04/2024 20:09:35 06/11/19 25 06/15/2024 TOXAS SURE [...] ===== ===== ===== === Not Available [facility] ([facility]) [address] [place], [address], 06/15/2024 09:07:35 06/11/19 25 06/15/2024 TOXAS SURE FLEX 22, URINE pdf . Not Available [facility] ([facility]) [address] [place], [address], 06/15/2024 09:07:35 06/11/19 25 06/15/2024 TOXAS SURE FLEX 22, URINE creatinine 38 mg/dL REFER ENCE RANGE : Ref Range >=20 Not Available [facility] ([facility]) [address] [place], [address], 06/15/2024 09:07:35 06/11/19 25 06/15/2024 TOXAS SURE FLEX 22, URINE amphetamines ia Negati ve NG/mL cutoff :300 Not Available [facility] ([facility]) [address] [place], [address], 06/15/2024 09:07:35 06/11/19 25 06/15/2024 TOXAS SURE FLEX 22, URINE benzodiazepi coby Negati ve Not Available [facility] ([facility]) [address] [facility], [place], [address], 06/15/2024 09:07:35 06/11/19 25 06/15/2024 TOXAS SURE FLEX 22, URINE diazepam Not Detect ed NG/mg _crea t Not Available [facility] ([facility]) [address] [place], [address], 06/15/2024 09:07:35 06/11/19 25 06/15/2024 TOXAS SURE FLEX 22, URINE desmethyldia zepam Not Detect ed NG/mg _crea t Not Available [facility] ([facility]) [address] [facility], [place], [address], 06/15/2024 09:07:35 06/11/19 25 06/15/2024 TOXAS SURE FLEX 22, URINE oxazepam Not Detect ed NG/mg _crea t Not Available [facility] ([facility]) [address] [facility], [place], [address], 06/15/2024 09:07:35 06/11/19 25 06/15/2024 TOXAS SURE [...] samra Oxaze samra: None Not Available [facility] ([facility]) [address] [place], [address], 06/15/2024 09:07:35 06/11/19 25 06/15/2024 TOXAS SURE FLEX 22, URINE alprazolam Not Detect ed NG/mg _crea t Not Available [facility] ([facility]) [address] [place], [address], 06/15/2024 09:07:35 06/11/19 25 06/15/2024 TOXAS SURE FLEX 22, URINE alpha-hydrox yalprazolam Not Detect ed NG/mg _crea t Not Available [facility] ([facility]) [address] [place], [address], 06/15/2024 09:07:35 06/11/19 25 06/15/2024 TOXAS SURE FLEX 22, URINE desalkylflur azepam Not Detect ed NG/mg _crea t Not Available [facility] ([facility]) [address] [place], [address], 06/15/2024 09:07:35 06/11/19 25 06/15/2024 TOXAS SURE FLEX 22, URINE lorazepam Not Detect ed NG/mg _crea t Not Available [facility] ([facility]) [address] [place], [address], 06/15/2024 09:07:35 06/11/19 25 06/15/2024 TOXAS SURE FLEX 22, URINE alpha-hydrox ytriazolam Not Detect ed NG/mg _crea t Not Available [facility] ([facility]) [address] [place], [address], 06/15/2024 09:07:35 06/11/19 25 06/15/2024 TOXAS SURE FLEX 22, URINE clonazepam Not Detect ed NG/mg _crea t Not Available [facility] ([facility]) [address] [place], [address], 06/15/2024 09:07:35 06/11/19 25 06/15/2024 TOXAS SURE FLEX 22, URINE 7-aminoclona zepam Not Detect ed NG/mg _crea t Not Available [facility] ([facility]) [address] [place] [address], [address], 06/15/2024 09:07:35 06/11/19 25 06/15/2024 TOXAS SURE FLEX 22, URINE midazolam Not Detect ed NG/mg _crea t Not Available [facility] ([facility]) [address] [place], [address], 06/15/2024 09:07:35 06/11/19 25 06/15/2024 TOXAS SURE FLEX 22, URINE alpha-hydrox ymidazolam Not Detect ed NG/mg _crea t Not Available [facility] ([facility]) [address] [place], [address], 06/15/2024 09:07:35 06/11/19 25 06/15/2024 TOXAS SURE FLEX 22, URINE flunitrazepa m Not Detect ed NG/mg _crea t Not Available [facility] ([facility]) [address] [place], [address], 06/15/2024 09:07:35 06/11/19 25 06/15/2024 TOXAS SURE FLEX 22, URINE desmethylflu nitrazepam Not Detect ed NG/mg _crea t Not Available [facility] ([facility]) [address] [place], [address], 06/15/2024 09:07:35 06/11/19 25 06/15/2024 TOXAS SURE FLEX 22, URINE cocaine metabolite ia Negati ve NG/mL cutoff :150 Not Available [facility] ([facility]) [address] [place] [address], [address], 06/15/2024 09:07:35 06/11/19 25 06/15/2024 TOXAS SURE FLEX 22, URINE ethyl alcohol enzymatic Negati ve g/dL cutoff :0.020 Not Available [facility] ([facility]) [address] [place], [address], 06/15/2024 09:07:35 06/11/19 25 06/15/2024 TOXAS SURE FLEX 22, URINE ethanol biomarkers ia Negati ve NG/mL cutoff :500 Not Available [facility] ([facility]) [address] [place], [address], 06/15/2024 09:07:35 06/11/19 25 06/15/2024 TOXAS SURE FLEX 22, URINE 6-acetylmorp andres ia Negati ve NG/mL cutoff :10 Not Available [facility] ([facility]) [address] [place], [address], 06/15/2024 09:07:35 06/11/19 25 06/15/2024 TOXAS SURE FLEX 22, URINE opiate class ia Negati ve NG/mL cutoff :100 Not Available [facility] ([facility]) [address] [place], [address], 06/15/2024 09:07:35 06/11/19 25 06/15/2024 TOXAS SURE FLEX 22, URINE oxycodone class ia Negati ve NG/mL cutoff :100 Not Available [facility] ([facility]) [address] [place], [address], 06/15/2024 09:07:35 06/11/19 25 06/15/2024 TOXAS SURE FLEX 22, URINE methadone ia Negati ve NG/mL cutoff :100 Not Available [facility] ([facility]) [address] [place], [address], 06/15/2024 09:07:35 06/11/19 25 06/15/2024 TOXAS SURE FLEX 22, URINE methadone mtb ia Negati ve NG/mL cutoff :100 Not Available [facility] ([facility]) [address] [place], [address], 06/15/2024 09:07:35 06/11/19 25 06/15/2024 TOXAS SURE FLEX 22, URINE buprenorphin e Negati ve Not Available [facility] ([facility]) [address] [place], [address], 06/15/2024 09:07:35 06/11/19 25 06/15/2024 TOXAS SURE FLEX 22, URINE buprenorphin e Not Detect ed NG/mg _crea t Not Available [facility] ([facility]) [address] [place], [address], 06/15/2024 09:07:35 06/11/19 25 06/15/2024 TOXAS SURE FLEX 22, URINE norbuprenorp andres Not Detect ed NG/mg _crea t Not Available [facility] ([facility]) [address] [place], [address], 06/15/2024 09:07:35 06/11/19 25 06/15/2024 TOXAS SURE FLEX 22, URINE fentanyl / analogues Negati ve Not Available [facility] ([facility]) [address] [place], [address], 06/15/2024 09:07:35 06/11/19 25 06/15/2024 TOXAS SURE FLEX 22, URINE fentanyl Not Detect ed NG/mg _crea t Not Available [facility] ([facility]) [address] [place], [address], 06/15/2024 09:07:35 06/11/19 25 06/15/2024 TOXAS SURE FLEX 22, URINE norfentanyl Not Detect ed NG/mg _crea t Not Available [facility] ([facility]) [address] [place], [address], 06/15/2024 09:07:35 06/11/19 25 06/15/2024 TOXAS SURE FLEX 22, URINE tapentadol ia Negati ve NG/mL cutoff :200 Not Available [facility] ([facility]) [address] [place], [address], 06/15/2024 09:07:35 06/11/19 25 06/15/2024 TOXAS SURE FLEX 22, URINE meperidine ia Negati ve NG/mL cutoff :200 Not Available [facility] ([facility]) [address] [place], [address], 06/15/2024 09:07:35 06/11/19 25 06/15/2024 TOXAS SURE FLEX 22, URINE propoxyphene ia Negati ve NG/mL cutoff :300 Not Available [facility] ([facility]) [address] [place], [address], 06/15/2024 09:07:35 06/11/19 25 06/15/2024 TOXAS SURE FLEX 22, URINE tramadol ia Negati ve NG/mL cutoff :200 Not Available [facility] ([facility]) [address] [place], [address], 06/15/2024 09:07:35 06/11/19 25 06/15/2024 TOXAS SURE FLEX 22, URINE barbiturates ia Negati ve NG/mL cutoff :200 Not Available [facility] ([facility]) [address] [place], [address], 06/15/2024 09:07:35 06/11/19 25 06/15/2024 TOXAS SURE FLEX 22, URINE other hallucinogen s Negati ve Not Available [facility] ([facility]) [address] [place], [address], 06/15/2024 09:07:35 06/11/19 25 06/15/2024 TOXAS SURE FLEX 22, URINE ketamine Not Detect ed Not Available [facility] ([facility]) [address] [place], [address], 06/15/2024 09:07:35 06/11/19 25 06/15/2024 TOXAS SURE FLEX 22, URINE norketamine Not Detect ed Not Available [facility] ([facility]) [address] [place], [address], 06/15/2024 09:07:35 06/11/19 25 06/15/2024 TOXAS SURE FLEX 22, URINE phencyclidin e ia Negati ve NG/mL cutoff :25 Not Available [facility] ([facility]) [address] [place], [address], 06/15/2024 09:07:35 06/11/19 25 06/15/2024 TOXAS SURE FLEX 22, URINE gabapentin ia Negati ve ug/mL cutoff :1.0 Not Available [facility] ([facility]) [address] [place], [address], 06/15/2024 09:07:35 06/11/19 25 06/15/2024 TOXAS SURE FLEX 22, URINE carisoprodol ia Negati ve NG/mL cutoff :100 Not Available [facility] ([facility]) [address] [place], [address], 06/15/2024 09:07:35 06/11/19 25 06/15/2024 TOXAS SURE FLEX 22, URINE sedative/hyp notics Negati ve Not Available [facility] ([facility]) [address] [place], [address], 06/15/2024 09:07:35 06/11/19 25 06/15/2024 TOXAS SURE FLEX 22, URINE zolpidem Not Detect ed Not Available [facility] ([facility]) [address] [place], [address], 06/15/2024 09:07:35 06/11/19 25 06/15/2024 TOXAS SURE FLEX 22, URINE zolpidem acid Not Detect ed Not Available [facility] ([facility]) [address] [place], [address], 06/15/2024 09:07:35 06/11/19 25 06/15/2024 TOXAS SURE FLEX 22, URINE zopiclone/es zopiclone Not Detect ed Not Available [facility] ([facility]) [address] [place], [address], 06/15/2024 09:07:35 06/11/19 25 06/15/2024 TOXAS SURE FLEX 22, URINE amino chloropyridi ne Not Detect ed Not Available [facility] ([facility]) [address] [facility], [place], [address], 06/15/2024 09:07:35 06/11/19 25 06/15/2024 TOXAS SURE FLEX 22, URINE zaleplon Not Detect ed Expec kelby metab olism of Sedat peter/ Hypno tics: Paren t Drug Detec kelby Metab olite s ----- ----- - ----- ----- ----- ----- Zolpi dem: Zolpi dem Acid Zopic lone/ Eszop iclon e: Amino Chlor opyri dine Zalep juventino: None Not Available [facility] ([facility]) [address] [facility], [place], [address], 06/15/2024 09:07:35 06/11/19 25 06/15/2024 TOXAS SURE FLEX 22, URINE acetaminophe n ia Negati ve ug/mL cutoff :5.0 Not Available [facility] ([facility]) [address] [place], [address], 06/15/2024 09:07:35 06/11/19 25 06/15/2024 TOXAS SURE FLEX 22, URINE miscellaneou s Negati ve Not Available [facility] ([facility]) [address] [place], [address], 06/15/2024 09:07:35 06/11/19 25 06/15/2024 TOXAS SURE FLEX 22, URINE dextromethor brooks Not Detect ed Not Available [facility] ([facility]) [address] [facility], [place], [address], 06/15/2024 09:07:35 06/11/19 25 06/15/2024 TOXAS SURE [...] used for suzi sis. Not Available [facility] ([facility]) [address] [facility], [place], [address], 06/15/2024 09:07:35 07/30/19 25 07/30/2024 TSH+F REE T4 TSH 1.030 uIU/m L 0.450- 4.500 normal Not Available [facility] ([facility]) [address] [place], [address], 07/30/2024 08:29:38 07/30/19 25 07/30/2024 TSH+F REE T4 T4,free(dire ct) 1.13 NG/dL 0.82-1 .77 normal Not Available [facility] ([facility]) [address] [place], [address], 07/30/2024 08:29:38 07/30/19 25 07/30/2024 CBC WITH DIFFE RENTI AL/PL ATELE T WBC 5.0 x10e3 /uL 3.4-10 .8 normal Not Available [facility] ([facility]) [address] [facility], [place], [address], 07/30/2024 08:29:39 07/30/1907/30/2024 CBC WITH DIFFE RENTI AL/PL ATELE T RBC 4.23 x10e6 /uL 3.77-5 .28 normal Not Available [facility] ([facility]) [address] [place], [address], 07/30/2024 08:29:39 07/30/1907/30/2024 CBC WITH DIFFE RENTI AL/PL ATELE T hemoglobin 13.0 g/dL 11.1-1 5.9 normal Not Available [facility] ([facility]) [address] [facility], [place], [address], 07/30/2024 08:29:39 07/30/1907/30/2024 CBC WITH DIFFE RENTI AL/PL ATELE T hematocrit 40.6 % 34.0-4 6.6 normal Not Available [facility] ([facility]) [address] [place], [address], 07/30/2024 08:29:39 07/30/1907/30/2024 CBC WITH DIFFE RENTI AL/PL ATELE T MCV 96 fL 79-97 normal Not Available [facility] ([facility]) [address] [place], [address], 07/30/2024 08:29:39 07/30/1907/30/2024 CBC WITH DIFFE RENTI AL/PL ATELE T MCH 30.7 pg 26.6-3 3.0 normal Not Available [facility] ([facility]) [address] [place], [address], 07/30/2024 08:29:39 07/30/19 25 07/30/2024 CBC WITH DIFFE RENTI AL/PL ATELE T MCHC 32.0 g/dL 31.5-3 5.7 normal Not Available [facility] ([facility]) [address] [facility], [place], [address], 07/30/2024 08:29:39 07/30/1907/30/2024 CBC WITH DIFFE RENTI AL/PL ATELE T RDW 14.6 % 11.7-1 5.4 Not Available [facility] ([facility]) [address] [facility], [place], [address], 07/30/2024 08:29:39 07/30/1907/30/2024 CBC WITH DIFFE RENTI AL/PL ATELE T platelets 286 x10e3 /uL 150-45 0 normal Not Available [facility] ([facility]) [address] [facility], [place], [address], 07/30/2024 08:29:39 07/30/1907/30/2024 CBC WITH DIFFE RENTI AL/PL ATELE T neutrophils 63 % not estab. normal Not Available [facility] ([facility]) [address] [facility], [place], [address], 07/30/2024 08:29:39 07/30/1907/30/2024 CBC WITH DIFFE RENTI AL/PL ATELE T lymphs 22 % not estab. normal Not Available [facility] ([facility]) [address] [facility], [place], [address], 07/30/2024 08:29:39 07/30/1907/30/2024 CBC WITH DIFFE RENTI AL/PL ATELE T monocytes 11 % not estab. normal Not Available [facility] ([facility]) [address] [facility], [place], [address], 07/30/2024 08:29:39 07/30/1907/30/2024 CBC WITH DIFFE RENTI AL/PL ATELE T eos 4 % not estab. normal Not Available [facility] ([facility]) [address] [place], [address], 07/30/2024 08:29:39 07/30/1907/30/2024 CBC WITH DIFFE RENTI AL/PL ATELE T basos 0 % not estab. normal Not Available [facility] ([facility]) [address] [place], [address], 07/30/2024 08:29:39 07/30/1907/30/2024 CBC WITH DIFFE RENTI AL/PL ATELE T immature cells VAT TENDER Not Available [facility] ([facility]) [address] [place], [address], 07/30/2024 08:29:39 07/30/1907/30/2024 CBC WITH DIFFE RENTI AL/PL ATELE T neutrophils (absolute) 3.1 x10e3 /uL 1.4-7. 0 normal Not Available [facility] ([facility]) [address] [place], [address], 07/30/2024 08:29:39 07/30/19 25 07/30/2024 CBC WITH DIFFE RENTI AL/PL ATELE T lymphs (absolute) 1.1 x10e3 /uL 0.7-3. 1 normal Not Available [facility] ([facility]) [address] [place], [address], 07/30/2024 08:29:39 07/30/1907/30/2024 CBC WITH DIFFE RENTI AL/PL ATELE T monocytes(ab solute) 0.6 x10e3 /uL 0.1-0. 9 normal Not Available [facility] ([facility]) [address] [place], [address], 07/30/2024 08:29:39 07/30/19 25 07/30/2024 CBC WITH DIFFE RENTI AL/PL ATELE T eos (absolute) 0.2 x10e3 /uL 0.0-0. 4 normal Not Available [facility] ([facility]) [address] [facility], [place], [address], 07/30/2024 08:29:39 07/30/1907/30/2024 CBC WITH DIFFE RENTI AL/PL ATELE T baso (absolute) 0.0 x10e3 /uL 0.0-0. 2 normal Not Available [facility] ([facility]) [address] [facility], [place], [address], 07/30/2024 08:29:39 07/30/1907/30/2024 CBC WITH DIFFE RENTI AL/PL ATELE T immature granulocytes 0 % not estab. Not Available [facility] ([facility]) [address] [facility], [place], [address], 07/30/2024 08:29:39 07/30/1907/30/2024 CBC WITH DIFFE RENTI AL/PL ATELE T immature grans (abs) 0.0 x10e3 /uL 0.0-0. 1 Not Available [facility] ([facility]) [address] [facility], [place], [address], 07/30/2024 08:29:39 07/30/1907/30/2024 CBC WITH DIFFE RENTI AL/PL ATELE T NRBC VAT TENDER Not Available [facility] ([facility]) [address] [facility], [place], [address], 07/30/2024 08:29:39 07/30/1907/30/2024 CBC WITH DIFFE RENTI AL/PL ATELE T hematology comments: VAT TENDER Not Available [facility] ([facility]) [address] [facility], [place], [address], 07/30/2024 08:29:39 07/30/1907/30/2024 COMP. METAB OLIC PANEL (14) glucose 86 mg/dL 70-99 normal Not Available [facility] ([facility]) [address] [facility], [place], [address], 07/30/2024 08:29:40 07/30/19 25 07/30/2024 COMP. METAB OLIC PANEL (14) BUN 10 mg/dL 6-24 normal Not Available [facility] ([facility]) [address] [facility] [place], [address], 07/30/2024 08:29:40 07/30/19 25 07/30/2024 COMP. METAB OLIC PANEL (14) creatinine 0.68 mg/dL 0.57-1 .00 normal Not Available [facility] ([facility]) [address] [facility] [place], [address], 07/30/2024 08:29:40 07/30/19 25 07/30/2024 COMP. METAB OLIC PANEL (14) eGFR 105 mL/mi n/1.7 3 >59 normal Not Available [facility] ([facility]) [address] [place], [address], 07/30/2024 08:29:40 07/30/19 25 07/30/2024 COMP. METAB OLIC PANEL (14) BUN/creatini ne ratio 15 9-23 normal Not Available [facility] ([facility]) [address] [place], [address], 07/30/2024 08:29:40 07/30/19 25 07/30/2024 COMP. METAB OLIC PANEL (14) sodium 145 mmol/ L 134-14 4 above high normal Not Available [facility] ([facility]) [address] [place], [address], 07/30/2024 08:29:40 07/30/19 25 07/30/2024 COMP. METAB OLIC PANEL (14) potassium 3.3 mmol/ L 3.5-5. 2 below low normal Not Available [facility] ([facility]) [address] [place], [address], 07/30/2024 08:29:40 07/30/19 07/30/2024 COMP. METAB OLIC PANEL (14) chloride 101 mmol/ L 96-106 normal Not Available [facility] ([facility]) [address] [place], [address], 07/30/2024 08:29:40 07/30/19 25 07/30/2024 COMP. METAB OLIC PANEL (14) carbon dioxide, total 27 mmol/ L 20-29 normal Not Available [facility] ([facility]) [address] [place], [address], 07/30/2024 08:29:40 07/30/1907/30/2024 COMP. METAB OLIC PANEL (14) calcium 9.6 mg/dL 8.7-10 .2 normal Not Available [facility] ([facility]) [address] [place], [address], 07/30/2024 08:29:40 07/30/19 25 07/30/2024 COMP. METAB OLIC PANEL (14) protein, total 6.3 g/dL 6.0-8. 5 normal Not Available [facility] ([facility]) [address] [place], [address], 07/30/2024 08:29:40 07/30/19 25 07/30/2024 COMP. METAB OLIC PANEL (14) albumin 3.9 g/dL 3.8-4. 9 normal Not Available [facility] ([facility]) [address] [place], [address], 07/30/2024 08:29:40 07/30/1907/30/2024 COMP. METAB OLIC PANEL (14) globulin, total 2.4 g/dL 1.5-4. 5 Not Available [facility] ([facility]) [address] [place], [address], 07/30/2024 08:29:40 07/30/1907/30/2024 COMP. METAB OLIC PANEL (14) bilirubin, total 0.4 mg/dL 0.0-1. 2 normal Not Available [facility] ([facility]) [address] [place], [address], 07/30/2024 08:29:40 07/30/19 25 07/30/2024 COMP. METAB OLIC PANEL (14) alkaline phosphatase 92 IU/L 44-121 normal Not Available [facility] ([facility]) [address] [place], [address], 07/30/2024 08:29:40 07/30/19 25 07/30/2024 COMP. METAB OLIC PANEL (14) AST (SGOT) 19 IU/L 0-40 normal Not Available [facility] ([facility]) [address] [place], [address], 07/30/2024 08:29:40 07/30/19 25 07/30/2024 COMP. METAB OLIC PANEL (14) ALT (SGPT) 13 IU/L 0-32 normal Not Available [facility] ([facility]) [address] [place], [address], 07/30/2024 08:29:40 07/30/19 25 07/30/2024 LIPID PANEL cholesterol, total 143 mg/dL 100-19 9 normal Not Available [facility] ([facility]) [address] [place], [address], 07/30/2024 08:29:41 07/30/19 25 07/30/2024 LIPID PANEL triglyceride s 124 mg/dL 0-149 normal Not Available [facility] ([facility]) [address] [place], [address], 07/30/2024 08:29:41 07/30/19 25 07/30/2024 LIPID PANEL HDL cholesterol 39 mg/dL >39 below low normal Not Available [facility] ([facility]) [address] [place], [address], 07/30/2024 08:29:41 07/30/1907/30/2024 LIPID PANEL VLDL cholesterol sandhya 22 mg/dL 5-40 Not Available [facility] ([facility]) [address] [place], [address], 07/30/2024 08:29:41 07/30/19 25 07/30/2024 LIPID PANEL LDL chol calc ([facility]) 82 mg/dL 0-99 Not Available [facility] ([facility]) [address] [facility], [place], [address], 07/30/2024 08:29:41 07/30/1907/30/2024 LIPID PANEL LDL calc comment: VAT TENDER Not Available [facility] ([facility]) [address] [facility], [place], [address], 07/30/2024 08:29:41 07/30/1907/30/2024 VITAM IN B12 AND FOLAT E vitamin B12 507 pg/mL 232-12 45 normal Not Available [facility] ([facility]) [address] [place], [address], 07/30/2024 08:29:42 07/30/1907/30/2024 VITAM IN B12 AND FOLAT E folate (folic acid), serum 7.6 NG/mL >3.0 normal A serum folat e annette ntrat ion of less than 3.1 ng/mL is consi dered to repre sent clini sandhya defic iency . Not Available [facility] ([facility]) [address] [facility], [place], [address], 07/30/2024 08:29:42 07/30/1907/30/2024 VITAM IN D, 25-HY [...] um and D. Thais sanchez [place]: [facility] . 2. Michael crump MF, Ivonne whelan [place], Bisch off-F errar i DWYER, et al. Evalu ation , treat ment, and preve ntion of vitam in D defic iency : an Endoc rine Socie ty clini sandhya pract ice guide line. JCEM. 2010; 96(7) :1911 -30. Not Available [facility] ([facility]) [address] [place], [address], 07/30/2024 08:29:42 07/30/19 25 07/29/2024 rapid flu (A+B) Flu negati ve Not Available [facility] [address], [place], [address], 07/29/2024 08:25:00 08/29/19 25 08/29/2024 URINE CULTU RE, ROUTI NE urine culture, routine Final report Not Available [facility] ([facility]) [address] [place], [address], 08/29/2024 22:10:45 08/29/19 25 08/29/2024 URINE CULTU RE, ROUTI NE result 1 COMMEN T Mixed uroge nital dyan Less than 10,00 0 colon ies/m L Not Available [facility] ([facility]) [address] [place], [address], 08/29/2024 22:10:45 08/29/19 25 08/28/2024 urina lysis , dipst ick Leukocytes Negati ve Not Available [facility] [place] [address], [place], [address], 08/28/2024 15:14:40 08/29/19 25 08/28/2024 urina lysis , dipst ick Nitrite negati ve Not Available [facility] [place] [address], [place], [address], 08/28/2024 15:14:40 08/29/19 25 08/28/2024 urina lysis , dipst ick Urobilinogen 1 Not Available [facility] [place] [address] [facility] [address], [place], [address], 08/28/2024 15:14:40 08/29/19 25 08/28/2024 urina lysis , dipst ick Protein [address] [facility] [place] [address] [facility], [place], [address], 08/28/2024 15:14:40 08/29/19 25 08/28/2024 urina lysis , dipst ick pH 6.[address] [facility] [place] [address] [facility], [place], [address], 08/28/2024 15:14:40 08/29/19 25 08/28/2024 urina lysis , dipst ick Blood Negati ve Not Available [facility] [place] [address] [facility], [place], [address], 08/28/2024 15:14:40 08/29/19 25 08/28/2024 urina lysis , dipst ick Specific [place] 1.025 Not Available [facility] [place] [address] [facility] [address], [place], [address], 08/28/2024 15:14:40 08/29/19 25 08/28/2024 urina lysis , dipst ick Ketone Trace Not Available [facility] [place] [address] [facility] [address] [facility] [address], [place], [address], 08/28/2024 15:14:40 08/29/19 25 08/28/2024 urina lysis , dipst ick Bilirubin Small Not Available [facility] [address], [place], [address], 08/28/2024 15:14:40 08/29/19 25 08/28/2024 urina lysis , dipst ick Glucose Negati ve Not Available [facility] [address], [place], [address], 08/28/2024 15:14:40 08/29/19 25 08/28/2024 urina lysis , dipst ick Appearance Cloudy Not Available [facility] [address], [place], [address], 08/28/2024 15:14:40 08/29/19 25 08/28/2024 urina lysis , dipst ick Color Dark Yellow Not Available [facility] [address], [place], [address], 08/28/2024 15:14:40 Result Notes None recorded. Problems Name Problem SNOMED Code Status Onset Date Resolution Date Notes Provider Name and Address Organization Details Recorded Time Suspecte d COVID-19 899558981 Completed 08/30/2020 Removal Reason: Problem added by user lflora from the COVID-19 watch flag Shellie Roe null, [place] - [facility] 13:59:44 Depressi ve disorder 64284703 Active Shannan Stone null, [place] - [facility] 4 09:18:54 Osteoart hritis 767815043 Active Shannan Stone [place] [facility] 09:18:54 Anxiety 44711378 Active Shannan Stone [place] [facility] 4 09:18:54 Diarrhea 04719948 Active Shannan Stone [place] [facility] 4 09:18:54 Cardiac arrhythm ia 163552809 Active Shannan Stone [place] - [facility] 4 09:18:54 Bursitis 13131890 Active Shannan Stone [place] - [facility] 4 09:18:54 Body mass index 30+ - obesity 444165841 Active 2016 Shannan Stone [place] - [facility] 4 09:18:53 [facility] 63923393 Active 2017 Godfrey Trimble, SYSTEM PLANNING ENGINEER [address], [place], [address], [place] - [facility] 8 09:17:52 Gastriti s 2079973 Active 2018 Shannan Stone null[place] - [facility] 4 09:18:54 Excessiv e caffeine intake 85323153467 4109 Active 2018 Shannan Stone [place] - [facility] 4 09:18:54 Adverse reaction to caffeine 343396116 Active 2018 Shannan Stone [place] [facility] 4 09:18:53 Postsurg ical menopaus e 376854824 Active 2018 Shannan Stone [place] [facility] 4 09:18:54 Pain of breast 87569802 Active 2018 Shannan Stone [place] [facility] 4 09:18:54 Fibrocys tic disease of breast 46065149 Active 2018 Shannan Stone [place] - [facility] 4 09:18:54 Mammogra phy abnormal 067681074 Active 2018 Shannan Stone [place] [facility] 4 09:18:53 Viral screenin g Active 2020 Shannan Stone [place] [facility] 4 09:18:53 Aortic valve regurgit ation 62197493 Active 2022 Shannan Stone [place] - [facility] 4 09:18:54 Vitamin D deficien cy 87571642 Active 2022 Shannan Stone [place] - [facility] 4 09:18:54 Body mass index 25-29 - overweig ht 206821239 Active 2024 Ni Murguia , SYSTEM PLANNING ENGINEER [address], [place], [address], [place] - [facility] 15:31:41 [facility] 935110378 Active 2024 Ni Murguia , SYSTEM PLANNING ENGINEER [address], [place], [address], [place] [facility] 15:31:43 Problem Notes None recorded. Procedures Surgical History Date Name Laterality Status Provider Name and Address Organization Details Recorded Time 024 Medication Reconcilliation completed [facility] 07/11/2023 11:47:52 023 Date of Last Mammogram completed Gem Bravo APRN [address], [place], [address], [place] - [facility] 12/27/2022 16:04:29 022 Medication Reconcilliation completed Radha Seals RN [address], [place], [address], [place] - [facility] 06/01/2021 10:09:05 021 Systolic B/P less than 130 mm Hg completed [facility] 07/07/2020 10:25:46 021 Diastolic B/P 80-89 mm Hg completed [facility] 07/07/2020 10:25:47 021 Systolic B/P less than 130 mm Hg completed [facility] 05/31/2020 10:46:42 021 Diastolic B/P less than 80 mm Hg completed [facility] 05/31/2020 10:46:43 020 Systolic B/P less than 130 mm Hg completed Angy [facility] - [facility] 01/16/2020 09:15:35 020 Diastolic B/P less than 80 mm Hg completed Angy [facility] - [facility] 01/16/2020 09:15:38 020 Systolic B/P less than 130 mm Hg completed [facility] 07/28/2019 15:15:52 020 Diastolic B/P less than 80 mm Hg completed [facility] 07/28/2019 15:15:54 020 Medication Reconcilliation completed [facility] 07/28/2019 15:11:41 020 Systolic B/P less than 130 mm Hg completed [facility] 07/02/2019 10:41:48 020 Diastolic B/P 80-89 mm Hg completed [facility] 07/02/2019 10:41:49 019 Systolic B/P less than 130 mm Hg completed [facility] 03/19/2019 08:49:31 019 Diastolic B/P 80-89 mm Hg completed [facility] 03/19/2019 08:49:33 019 Medication Reconcilliation completed [facility] 03/19/2019 08:45:38 019 Systolic B/P less than 130 mm Hg completed [facility] 02/26/2019 09:14:09 019 Diastolic B/P less than 80 mm Hg completed [facility] 02/26/2019 09:14:10 019 Medication Reconcilliation completed [facility] 02/26/2019 09:05:04 019 Systolic B/P less than 130 mm Hg completed Marynanette Bridges [facility] 02/03/2019 13:43:33 019 Diastolic B/P less than 80 mm Hg completed Marynanette Bridges [facility] 02/03/2019 13:43:41 019 Medication Reconcilliation completed [facility] 02/03/2019 13:33:44 019 Systolic B/P less than 130 mm Hg completed [facility] 01/01/2019 10:19:51 019 Diastolic B/P 80-89 mm Hg completed [facility] 01/01/2019 10:19:53 019 Systolic B/P less than 130 mm Hg completed [facility] [facility] 11/12/2018 11:07:42 019 Diastolic B/P 80-89 mm Hg completed Angy Del Cid [facility] 11/12/2018 11:07:44 019 Endoscopy completed Lydia Johnson [facility] 01/15/2019 13:39:39 018 Date of Last Colonoscopy completed Angy Del Cid [facility] 07/24/2022 09:17:35 018 Cholecystectomy, laparoscopic completed Lydia Johnson [facility] 01/15/2019 13:38:22 Orthopedic Surgery completed Rossana Gomes [facility] 12/13/2022 14:45:33 Hysterectomy, Total Abdominal completed Lydia Johnson [facility] 01/17/2019 10:46:02 Imaging Results None recorded. Procedure Notes None recorded. Medical Equipment None Reported. Allergies Allergen ID Allergen Name Allergen Category Reaction Reaction Severity Criticality Documentation Date Start Date Code Code System Note Provider Name and Address Organization Details Recorded Time 198598 Demerol medicatio n vomiting Not available Not available 08/12/2018 94080 1 RxNorm Kalpana Angie [facility] 9 10:33:47 081104 morphine medicatio n vomiting Not available Not available 01/17/2019 7052 RxNorm Amberndri denzel [facility] 9 10:42:57 942208 fentanyl medicatio n vomiting Not available Not available 01/17/2019 4337 RxNorm Amberndri a [facility], [facility] 9 10:43:07 49668 Substance with sulfonami de structure and antibacte rial mechanism of action (substanc e) medicatio n Not available Not available Not available 02/11/20162007 76844 8003 SNOMED React ion: Vomit ting, dizzi ness; Comme nt: Sulfo namid es; Not Available [facility] 6 09:16:18 97865 acetamino phen medicatio n vomiting Not available Not available 02/11/20162007 161 RxNorm React ion: Nause a/vom iting ; Comme nt: aceta minop hen; Shannan Alberto null, [place] - [facility] 4 09:18:52 76835 hydrocodo ne bitartrat e medicatio n vomiting Not available Not available 02/11/20162007 49414 9 RxNorm React ion: Nause a/vom iting ; Comme nt: hydro codon e dannie trate ; Shannan Alberto null, [place] - [facility] 4 09:18:52 04869 acetamino phen / oxycodone medicatio n Not available Not available Not available 09/13/2016 58885 3 RxNorm vomit ing Kalpana Adams null, [...] ine 25 mg rectal supposito ry one NC q 6 hrs prn 07/13 completed phenerga [...] 1 TABLET BY MOUTH ONCE DAILY NEEDED. 2024 active Not Available Not Available Not Avai lable metoclopr amide 10 mg tablet TAKE ONE TABLET BY MOUTH EVERY 6 HOURS. 08/28 completed Not Available Not Available Not Available esomepraz ole magnesium 20 mg capsule,d elayed release 06/04 completed Not Available Not Available Not Available neomycin- polymyxin -hydrocor t 3.5 mg-10,000 unit/mL-1 % ear drops,nilson p INSTILL 4 DROPS INTO AFFECTED EAR(S) BY OTIC ROUTE 3 TIMES PER DAY 01/23 completed Not Available Not Available Not Available [...] saturation in Arterial blood by Pulse oximetry Pain severity - 0-10 verbal numeric rating [Score] - Reported Systolic And Diastolic Provider Name and Address Organization Details Last Updated DateTime 5 167.64 cm 31.2 kg/m2 02634.4 3 g 98.2 [degF] 18 /min 106 /min 99 % 99 % 7 126/90 mm[Hg] Angy Del Cid [place] - [facility] 5 10:33:26 Date Recorded Body height Body mass index (BMI) Body weight Oxygen saturation Oxygen saturation in Arterial blood by Pulse oximetry Heart rate Body temperature Respiratory rate Systolic And Diastolic Provider Name and Address Organization Details Last Updated DateTime 5 167.64 cm 29.1 kg/m2 98227.6 3 g 98 % 98 % 78 /min 98.2 [degF] 17 /min 112/74 mm[Hg] Elizabeth Quanl [place] - [facility] 5 08:30:56 Date Recorded Body height Body mass index (BMI) Body weight Body temperature Respiratory rate Pain severity - 0-10 verbal numeric rating [Score] - Reported Heart rate Oxygen saturation Oxygen saturation in Arterial blood by Pulse oximetry Systolic And Diastolic Provider Name and Address Organization Details Last Updated DateTime 5 167.64 cm 27.6 kg/m2 05999.3 g 97.8 [degF] 18 /min 0 80 /min 96 % 96 % 124/72 mm[Hg] Shellie Roe [place] - [facility] 5 15:13:39 Date Recorded Body height Body mass index (BMI) Body weight Body temperature Respiratory rate Pain severity - 0-10 verbal numeric rating [Score] - Reported Heart rate Oxygen saturation Oxygen saturation in Arterial blood by Pulse oximetry Systolic And Diastolic Provider Name and Address Organization Details Last Updated DateTime 5 167.64 cm 26.9 kg/m2 04539.1 3 g 98.4 [degF] 17 /min 3 84 /min 98 % 98 % 120/74 mm[Hg] Angy Del Cid [place] - [facility] 5 14:03:57 Date Recorded Body height Body mass index (BMI) Body weight Body temperature Respiratory rate Pain severity - 0-10 verbal numeric rating [Score] - Reported Heart rate Oxygen saturation Oxygen saturation in Arterial blood by Pulse oximetry Systolic And Diastolic Provider Name and Address Organization Details Last Updated DateTime 4 167.64 cm 32.6 kg/m2 02876.3 6 g 98.3 [degF] 17 /min 9 122 /min 98 % 98 % 118/88 mm[Hg] Angy Del Cid [place] - [facility] 09:13:59 Social History Question Answer Notes LastModified by Organizat ion Details LastModified Time Tobacco Smoking Status Current Every Day Smoker quit 2016 MARCUS Aquino - [facility] 06/26/2023 14:32:42 Able To Swim? Yes [email or web address] Information not available 11/27/2016 Do You Have An Advance Directive? No [email or web address] Information not available 11/27/2016 Do You Wear A Helmet When Biking? No [email or web address] Information not available 11/27/2016 Are You Blind Or Do You Have Difficulty Seeing? No [email or web address] Information not available 11/27/2016 Is Blood Transfusion Acceptable In An Emergency? Yes Information not available 12/13/2022 What Is Your Level Of Caffeine Consumption? Occasional [email or web address] Information not available 11/27/2016 In The 14 Days Before Symptom Onset, Have You Had Close Contact With A Laboratory-confi rmed COVID-19 While That Case Was Ill? No Information not available 01/20/2022 In The 14 Days Before Symptom Onset, Have You Had Close Contact With A Person Who Is Under Investigation For COVID-19 While That Person Was Ill? No [email or web address] Information not available 01/20/2022 Have You Been To An Area Known To Be High Risk For COVID-19? No [email or web address] Information not available 01/20/2022 Are You Deaf Or Do You Have Serious Difficulty Hearing? No [email or web address] Information not available 11/27/2016 What Type Of Diet Are You Following? REGULAR Information not available 11/27/2016 Which Illicit Or Recreational Drugs Have You Used? None [email or web address] Information not available 11/27/2016 Have You Processed Blood Or Body Fluids From An Ebola Virus Disease Patient Without Appropriate PPE? No [email or web address] Information not available 01/20/2022 Do You Reside In Or Have You Traveled To An Area Where Ebola Virus Transmission Is Active? No Information not available 01/20/2022 What Is The Highest Grade Or Level Of School You Have Completed Or The Highest Degree You Have Received? [id number] [email or web address] Information not available 12/13/2022 Swimming/diving Yes [email or web address] Informati on not available 11/27/2016 Have There Been Any Changes To Your Family Or Social Situation? No [email or web address] Information not available 01/20/2022 What Is The Fluoride Status Of Your Home? Fluoridated [email or web address] Information not available 12/13/2022 Hard Of Hearing Or Deaf In One Or Both Ears? No [email or web address] Information not available 11/27/2016 Have You Recently Or Are You Planning To Travel To An Area With Zika Virus? No [email or web address] Information not available 01/20/2022 Legally Blind In One Or Both Eyes? No [email or web address] Information not available 11/27/2016 Do You Have A Medical Power Of Aerospace Control And Warning Systems? No [email or web address] Information not available 01/20/2022 What Was The Date Of Your Most Recent Tobacco Screening? 06/11/2024 Information not available 06/11/2024 How Many Children Do You Have? 1 [email or web address] Information not available 12/13/2022 What Is Your Relationship Status? Information not available 01/17/2019 Seat Belts Used Routinely Yes [email or web address] Information not available 11/27/2016 Are You Sexually Active? No [email or web address] Information not available 12/13/2022 Smoke Alarm In Home Yes Information not available 11/27/2016 Do You Have Smoke And Carbon Monoxide Detectors In Your Home? Yes [email or web address] Information not available 01/20/2022 Are You Passively Exposed To Smoke? No [email or web address] Information not available 11/27/2016 How Much Tobacco Do You Smoke? 1 PPD Started Back About 3 Months Ago. Smokes About 1 1/5 Packs Daily [email or web address] Information not available 06/26/2023 General Stress Level Medium [email or web address] Information not available 11/27/2016 Do You Use Sunscreen Routinely? Yes [email or web address] Information not available 11/27/2016 Has Tobacco Cessation Counseling Been Provided? Yes [email or web address] Information not available 12/13/2022 On What Date Was Tobacco Cessation Counseling Provided? 12/13/2022 [email or web address] Information not available 12/13/2022 How Many Years Have You Smoked Tobacco? 20 Information not available 01/17/2019 Do You Have Difficulty Walking Or Climbing Stairs? No [email or web address] Information not available 11/27/2016 What Contraceptive Method Was Reported At Start Of This Visit? Female Sterilization [email or web address] Information not available 12/13/2022 What Contraceptive Method Was Reported At End Of This Visit? Female Sterilization [email or web address] Information not available 12/13/2022 Do You Want To Talk About Contraception Or Prevention During Your Visit Today? No - I Do Not Want To Talk About Contraception Today Because I Am Here For Something Else [email or web address] Information not available 12/13/2022 How Was The Contraceptive Method Provided? Provided On Site [email or web address] Information not available 12/13/2022 Do You Have Any Future Plans To Get ? No, I Don't Want To Become [email or web address] Information not available 12/13/2022 Sex: Female Functional Status Question Answer Note LastModified by Organizat ion Details LastModified Time Do you or have you ever used smokeless tobacco? Never used smokeless tobacco Information not available 01/01/2019 Are you currently employed? Yes [email or web address] Information not available 11/27/2016 Do you have transportation difficulties? No Information not available 01/20/2022 Are you able to care for yourself independently? Yes [email or web address] Information not available 11/27/2016 Do you have difficulty dressing, bathing, grooming, or toileting? No [email or web address] Information not available 11/27/2016 Do you or have you ever used e-cigarettes or vape? Never used electronic cigarettes [email or web address] Information not available 01/01/2019 What is your exercise level? Occasional [email or web address] Information not available 11/27/2016 Do you use any illicit or recreational drugs? No [email or web address] Information not available 01/20/2022 Do you or have you ever used any other forms of tobacco or nicotine? No [email or web address] Information not available 01/20/2022 What is your level of alcohol consumption? None Information not available 11/27/2016 What is your status? Not Information no t available 12/13/2022 Are you able to walk? YESWOREST [email or web address] Information not available 11/27/2016 Do you have difficulty doing errands alone? No Information not available 11/27/2016 What is your occupation? [employer] - [employer] Information not available 01/17/2019 Mental Status Question Answer Note LastModified by Organizat ion Details LastModified Time Do you feel stressed (tense, restless, nervous, or anxious, or unable to sleep at night)? [id number] Information not available 12/13/2022 Do you have difficulty concentrating, remembering or making decisions? No Information no t available 11/27/2016 Family History Relationship Description Onset Age of this Age Resolved Age Notes LastModified by Organization Details LastModified Time Unspecified Relation Family history of malignant neoplasm Aunt [email or web address] Not available 2016 11:40:00 Unspecified Relation Family history of malignant neoplasm Uncle [email or web address] Not available 2016 11:40:00 Unspecified Relation Headache [email or web address] Not available 017 11:40:12 Unspecified Relation Neoplasm of skin Nephew Not available 2022 14:48:36 Paternal Grandmother Family [...] 11:42:15 Maternal Aunt Malignant tumor of breast [email or web address] Not available 2022 14:47:10 Notes:Stent placement - Fat er Medical History Condition Response Depression Y Migraine Headaches Y Acid Reflux (GERD) Y Tendonitis Y Gynecological History Statement/Question Response Abnormal Pap N Date of Last Mammogram 12/27/2022 On BCP's at Conception? N Post Menopausal Bleeding N STIs/STDs N HPV Vaccine N Current Control Method Hysterectom y Age at First Child 17 Last Lipids 09-2022 Date of Last Colonoscopy 2018 Sexually Active? [...] quadrivalent, preservative 1 completed Jhony Swan null, [place] - [facility] 09/10/2020 11:58:57 pneumococcal polysaccharide PPV23 1 completed Jhony Swan null, [place] - [facility] 09/10/2020 11:59:54 COVID-19, mRNA, LNP-S, bivalent, PF, 50 mcg/0.5 mL or 25mcg/0.25 mL dose 3 completed Godfrey Trimble, SYSTEM PLANNING ENGINEER [address], [place], [address], [place] [facility] 05/10/2022 09:46:24 Influenza, split virus, quadrivalent, preservative 4 completed Elizabeth Anabella null, [place] - [facility] 05/15/2023 09:19:00 Influenza, split virus, trivalent, preservative 5 completed Godfrey Trimble, SYSTEM PLANNING ENGINEER [address], [place], [address], [facility] - [facility] 06/11/2024 11:08:06 Influenza, split virus, quadrivalent, preservative 8 completed Not Available [facility] 05/24/2019 03:55:24 Pneumococcal conjugate PCV 13 8 completed Not Available [facility] 05/24/2019 03:55:24 COVID-19, mRNA, LNP-S, PF, 100 mcg/0.5mL dose or 50 mcg/0.25mL dose 1 completed Not Available [facility] 05/15/2023 03:44:12 COVID-19, mRNA, LNP-S, PF, 100 mcg/0.5mL dose or 50 mcg/0.25mL dose 1 completed Not Available [facility] 05/15/2023 03:44:12 COVID-19, mRNA, LNP-S, PF, 100 mcg/0.5mL dose or 50 mcg/0.25mL dose 1 completed Not Available [facility] 05/15/2023 03:44:12 SARS-COV-2 (COVID-19) vaccine, UNSPECIFIED 3 completed Not Available [facility] 06/26/2023 14:12:53 Tdap 9 completed Not Available [facility] 05/24/2019 03:56:15 Influenza, split virus, quadrivalent, preservative 9 completed Not Available [facility] 05/24/2019 03:56:15 Past Encounters Encounter ID Performer Location Encounter Start Date Encounter Closed Date Diagnosis/Indication Diagnosis SNOMED-CT Code Diagnosis ICD10 Code Diagnosis Note [id number] SVETA Botello [facility] [address] [place] [address] 06/28/2016 10:13:08 06/28/2016 11:48:41 Acute otitis externa 72877113 H60.512 Acute pharyngitis 962055 003 J02.9 Acute urin nancy tract infection 230020728 N39.0 [id number] SVETA Scales [facility] [address] [place] [address] 07/13/2016 10:04:50 07/13/2016 11:02:51 Acute maxillary sinusitis 30596780 J01.00 Conjunctivitis 2592029 H 10.9 [id number] SVETA Botello [place] [address] [place] [address] 09/13/2016 15:40:11 09/13/2016 16:33:22 Traumatic injury 624917254 T14.90 [id number] SVETA Botello [place] [address] [place] [address] 11/27/2016 10:51:23 11/27/2016 12:14:56 Traumatic injury 070579025 T14.90 Body mass index 30+ - obesity 496322868 Z68.32 [id number] SVETA Botello [place] [address] [place], [place] [address] 12/19/2016 13:59:23 12/19/2016 15:32:44 Edema of lower extremity 160123878 R60.0 Acute urin nancy tract infection 564142103 N39.0 [id number] Godfrey Trimble APRN [facility] [place] [address] [address] [place], [place] [address] 01/22/2017 10:16:38 01/22/2017 12:00:52 Strain of trapezius muscle 574759318 S46.812A [id number] SVETA Botello [place] [address] [place], [place] [address] 04/04/2017 12:51:58 04/04/2017 13:47:46 Acute sinusitis 72622440 J01.90 [id number] Godfrey GustavocoleenBETYN [facility] [place] [address] [address] [facility] [place] [address] 07/04/2017 09:43:37 07/04/2017 10:58:45 Inflammation of sacroiliac joint 30845525 M46.1 [id number] Godfrey ChenmargaritoBETY mckinneyN [facility] [place] [address] [address] [facility] [place] [address] 09/14/2017 13:13:50 09/14/2017 14:05:56 Right upper quadrant pain 844049414 R10.11 Edema of l ower extremity 275140357 R60.0 Heel pain 5078705 M79.67 1 Acute urin nancy tract infection 592086843 N39.0 [id number] Godfrey ChenmargaritoBETY mckinneyN [facility] [place] [address] [address] [facility] [place] [place] [address] 02/19/2018 09:39:32 02/19/2018 10:53:50 Acute sinusitis 63303419 J01.90 Body mass index 30+ - obesity 371852894 Z68.31 Gastroesop hageal reflux disease without esophagitis 259822756 K21.9 Dysuria 75730207 R30.0 [id number] Godfrey Trimble APRN [facility] [address] [place] [place] [address] 03/18/2018 08:46:13 03/18/2018 10:39:28 Administration of influenza vaccine 94285323 Z23 Administra tion of pneumococcal vaccine 60772680 Z23 Essential hypertension 74907253 I10 Right flank pain 9004788 09 R10.9 Umbilical pain 74431834 R10.33 Screening for malignant neoplasm of colon 608958099 Z12.11 [id number] Catia Song APRN [facility] [place] [address] [address] [place] [facility] [place] [address] 04/01/2018 09:45:27 04/01/2018 10:42:25 Axillary lymphadenopathy 580663662 R59.0 [id number] Godfrey Trimble [employer]INE[employer] [place] [place] [address] [address] [place] [facility] [place] [address] 05/21/2018 09:01:07 05/21/2018 09:36:56 Pain of sacroiliac joint 040915959 M53.3 [id number] Godfrey Trimble [employer] [facility] [address] [place] [facility] [place] [address] 08/12/2018 10:10:54 08/12/2018 11:09:04 Cough 85183224 R05 Acute sinusitis 98190253 J01.90 Nausea 834089141 R11.0 [id number] Godfrey Trimble APRN [facility] [address] [place] [place] [address] 11/12/2018 10:45:36 11/12/2018 11:22:46 Acute urinary tract infection 177970653 N39.0 [id number] Godfrey Trimble APRN [facility] [address] [place] [facility] [place] [address] 01/01/2019 10:07:53 01/01/2019 10:39:50 Onychomycosis of toenails 746876935 B35.1 Pain of breast 23553238 N64.4 [id number] Monica Cespedes MD [place] [employer] [address] [facility] [place] [address] 01/17/2019 10:28:51 01/17/2019 11:36:30 Pain of breast 98604258 N64.4 Mastodynia bilateral without focal mass or [...] anti-infla mmatories as needed Excessive caffeine intake 2833790307 15731 R63.8 Adverse re action to caffeine 874646567 T43.615A Describes 8 L Mountain Dew per day which is excessive. Advised decreasing this gradually. Might anticipate withdrawal headaches if quits to quickly Postsurgic al menopause 633951579 E89.41 BSO 20 years ago without replacemen t not currently symptomati c. We do not have records although I did the surgery due to long gap in care. Records request and advise return to routine care Fibrocysti c disease of breast 67515511 N60.19 Screening for malignant neoplasm of breast 402061478 Z12.31 Patient aware of due date for next Mammogram as indicated below. April 2019 she will be notified by facility of result after completion . Advise yearly Clinical Breast exam with Annual exam. Mammography abnormal 168 775747 R92.8 Suspected bilateral oil cyst stable 12 18 through 5 19 recheck 12 19 per radiology. I do not feel this is part of patient's symptomato logy [id number] SVETA Botello [facility] [address] [facility] [place] [address] 02/03/2019 13:23:24 02/03/2019 14:14:34 Low back pain 512642499 M54.5 Inflammati on of sacroiliac joint 84729787 M46.1 [id number] SVETA Botello [facility] [address] [place] [address] 02/26/2019 08:46:04 02/26/2019 09:40:35 Acute urinary tract infection 672682510 N39.0 [id number] SVETA Botello [place] [address] [place] [address] 03/19/2019 08:32:31 03/19/2019 09:30:58 General examination of patient 584412299 Z00.00 Exercises education, guidance, and counseling 203692153 Z71.82 Dietary ma nagement surveillance 494481046 Z71.3 Administra tion of diphtheria, pertussis, and tetanus vaccine 151825804 Z23 Bilateral wrist pain 812 3058567 0326529 M25.531 Body mass index 25-29 - overweight 405648152 Z68.29 Essential hypertension 41440960 I10 Administra tion of influenza vaccine 79427420 Z23 Weight gain 5542033 R63. 5 [id number] SVETA Botello [place] [address] [address] [place] [address] 07/02/2019 10:07:44 07/02/2019 11:01:25 Pre-surgery evaluation 401219930 Z01.020 [id number] SVETA Botello [place] [address] [place] [address] 07/28/2019 15:05:56 07/28/2019 15:28:14 Nausea 325277396 R11.0 Postoperative visit 1836 28336 Z09 [id number] SVETA Harringtonmehnazsarah [place] [address] [address] [place] [address] 10/13/2019 10:10:55 10/13/2019 11:23:55 Pain of breast 52973413 N64.4 Mastodynia of right breast 4681049611 0476961 N64.4 Medication monitoring 39 8191404 Z51.81 [id number] SVETA Botello [place] [address] [address] [place] [address] 01/16/2020 09:01:22 01/16/2020 09:24:20 Onychomycosis of toenails 221001970 B35.1 [id number] Godfrey AtilioBETYN [facility] [place] [address] [place] [address] 05/31/2020 10:29:26 05/31/2020 11:07:55 Abnormal urine odor 0934853 R82.90 [id number] Godfrey AtilioBETYN [facility] [place] [address] [place] [address] 07/07/2020 10:15:34 07/07/2020 10:59:50 Insomnia 903737315 G47.00 Anxiety 97837976 F41.9 [id number] Catia Song [employer] [facility] [place] [address] [address] [place] [address] 08/30/2020 11:40:36 08/30/2020 12:28:11 Viral screening 929043146 Z11.52 negative Sinusitis 90760236 J32.9 increase water intake, rtc as needed Nausea 070487874 R11.0 increase water intake, watch for signs of dehydratio n. rtc as needed [id number] Marina Pandya APRN [facility] [place] [address] [place] [address] 09/10/2020 10:43:22 09/10/2020 11:56:58 Dog bite 300215977 W54.0XXA Administra tion of influenza vaccine 56591924 Z23 Administra tion of pneumococcal vaccine 24349851 Z23 [id number] Godfrey Trimble APRN [facility] [place] [address] [address] [place] [address] 01/07/2021 09:29:24 01/07/2021 10:29:06 Candidiasis of mouth 61964384 B37.0 Muscle spa sm of cervical muscle of neck 3531447346 04 M62.619 [id number] Godfrey Trimble APRN [facility] [place] [address] [address] [place] [address] 06/01/2021 09:39:26 06/01/2021 10:39:21 Pain of right wrist 0455819305 [address] Arauz' office for this. Essential hypertension 02061319 I10 Body mass index 30+ - obesity 581122825 Z68.31 [id number] Godfrey Trimble [employer] [place] [place] [address] [place] [address] 06/08/2021 10:49:41 06/08/2021 11:19:23 Viral screening 834573105 Z11.52 Nausea 843652983 R11.0 [id number] Godfrey AtilioBETYN [facility] [place] [address] [place] [address] 06/27/2021 14:01:34 06/27/2021 14:39:49 Essential hypertension 08024055 I10 [id number] Godfrey Trimble SYSTEM [employer] [facility] [place] [address] [address] [facility] [place] [address] 08/01/2021 14:07:15 08/01/2021 14:34:46 Acute sinusitis 88719145 J01.90 [id number] Godfrey ChenmargaritoBETY mckinneyN [facility] [place] [address] [address] [facility] [place] [address] 01/20/2022 10:16:12 01/20/2022 11:03:47 Screening mammography 24825035 Z12.31 Intermitte nt palpitations 633114084 R00.2 [id number] Godfrey AtilioBETYN [facility] [place] [address] [address] [facility] [place] [address] 05/09/2022 10:24:20 05/09/2022 11:19:47 Essential hypertension 56638046 I10 Administra tion of SARS-CoV-2 antigen vaccine 711459748 Z23 Acute sinusitis 30663788 J01.90 Obstructiv e sleep apnea syndrome 66994937 G47.33 Umbilical pain 98396898 R10.33 [id number] Godfrey Trimble APRN [place] [address] [place], [place] [address] 07/24/2022 09:10:36 07/24/2022 09:43:27 Acute sinusitis 25498335 J01.90 [id number] Godfrey Trimble APRN [facility] [place] [address] [address] [place], [place] [address] 08/04/2022 10:46:24 08/04/2022 11:31:01 Otitis externa of right ear 6793087188 504515 H60.91 Nausea 070062898 R11.0 [id number] Godfrey Trimble APRN [facility] [place] [address] [place] [address] 10/06/2022 15:10:21 10/06/2022 15:44:19 Essential hypertension 31188996 I10 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 3447130823 40201 G56.02 Pain of ear 128230733 H9 2.09 [id number] Godfrey Trimble APRN [facility] [place] [address] [address] [place], [place] [address] 11/03/2022 11:20:35 11/03/2022 11:40:42 Edema of lower extremity 611629559 R60.0 [id number] Gem Bravo APRN [facility] [place] [address] [address] [place], [place] [address] 12/13/2022 13:49:31 12/13/2022 15:17:31 Pain of breast 12307579 N64.4 Fatigue 71187681 R53.83 Diabetes m ellitus screening 088713023 Z13.1 [id number] Godfrey Trimlbe APRN [facility] [place] [address] [address] [place] [address] 01/23/2023 13:03:48 01/23/2023 13:39:58 Acute sinusitis 98876201 J01.90 Epigastric pain 16942676 R10.13 [id number] Marlee Ramirez MD [facility] [place] [address] [address] [address] 05/15/2023 09:06:00 05/15/2023 10:10:48 Influenza vaccine needed 7517106901 106 Z23 [id number] Godfrey AtilioBTEYN [place] [address] [place] [address] 06/26/2023 14:11:55 06/26/2023 14:51:09 Tobacco dependence syndrome 35775856 F17.200 Body mass index 25-29 - overweight 602782184 Z68.29 Overweight 117644042 E66 .3 [id number] Godfrey Atilio [employer]INE[employer] [facility] [place] [address] [place] [address] 07/11/2023 11:40:18 07/11/2023 12:04:16 Low back pain 602017692 M54.50 [id number] Godfrey Trimble APRN [place] [place] [address] [place] [address] 12/28/2023 08:55:09 12/28/2023 09:37:13 Low back pain 313929609 M54.50 Long-term drug therapy 084976101 Z79.152 [id number] Godfrey Trimble SYSTEM PL[employer] ENG[employer] [place] [address] [place] [address] 06/11/2024 10:21:38 06/11/2024 10:59:47 Low back pain 111141526 M54.50 Influenza vaccine needed 1547359240 106 Z23 Insomnia 783198235 G47.0 0 Long-term drug therapy 361334742 Z79.224 [id number] Godfrey Trimble APRN [place] [address] [place] [address] 07/29/2024 08:20:09 07/29/2024 09:03:26 Viral screening 536300206 Z11.52 Acute sinusitis 86953363 J01.90 Allergic rhinitis 470336 04 J30.9 Endocrine/ metabolic screening 412346268 Z13.598 [id number] SVETA Chaumingssarah [facility] [address] [place], [place] [address] 08/28/2024 15:08:13 08/28/2024 15:27:12 Dysuria 29492348 R30.0 Pain in fe male genitalia on intercourse 90145023 N94.10 Body mass index 25-29 - overweight 624379015 E66.3 Overweight 512862298 E66 .3 [id number] SVETA Botello [facility] [address] [place], [place] [address] 10/27/2024 13:49:52 10/27/2024 14:26:33 Numbness of lower limb 126850386 R20.0 Spasm 89631420 M62.838 Health Concerns Section Related Observation LastModified by Organization Detai ls LastModified Time None Recorded Concern Status LastModified by Organization Details LastModified Time None Recorded Advance Directives Directive N: Payers Insurance Date Sequence Insurance Name Policy Number Policy Rao Covered Member ID Rao Member ID Guarantor Name 06/10/2024 1 [id number] Genia Gonzales [id number] Ilda Gonzales 05/20/2017 1 [facility] Janet [id number] Ilda Gonzales 10/27/2024 [id number] Ilda Gonzales [id number] Ilda Gonzales 10/27/2024 1 [facility] (MEDICAID REPLACEMENT - HMO) Genia Gonzales [id number] Ilda Gonzales 08/24/2016 1 UNSPECIFIED REMIT PAYOR Ilda Gonzales 01/04/2021 [place] [id number] Ilda Gonzales [id number] Ilda Gonzales 09/14/2017 1 *SELF PAY* Genia Gonzales 01/04/2021 1 [place] [id number] Ilda Gonzales [id number] Ilda Gonzales OBGyn Episode No OBEpisode recorded.
--- OUTSIDE RECORDS SUMMARY | 2024-12-01 13:37 | XMS_ITS | Data Portability ---
Author Organization [facility] & [facility] Medicine and [facility] [place] Address [address] [place] [address] Assessment No assessment recorded. Plan of Treatment Reminders Order Date Submit Date Provider Last Modified By Organization Details Last Modified Time Details Appointments None recorded. Lab drug screen, urine - can be urine or bloody LC [id number] Tox[employer]ure 2024 025 [facility] (Registration ), [address] [place] [address] Tonia Brown, [place], [address], 5 14:11:07 Referral None recorded. Procedures polysomnog mima, diagnostic (PROC) - In lab sleep study [address] (Centralized Scheduling), [facility] [address], [place], [address], 4 08:37:58 Surgeries None recorded. Imaging None recorded. Medication Orders None recorded. Patient TargetsNo targets recorded. Patient Instructions Encounter Date Encounter Id Patient Instructions Last Modified By Organization Details Last Modified Time 02/05/2023 [id number] Weight loss. Giv en her home sleep study is negative for sleep apnea and her history and physical exam is consistent with sleep apnea, recommend overnight full in-lab polysomnography study. This was ordered but not done yet. Follow up with ENT for TMJ and hoarseness. [email or web address] Not available 02/05/2023 12:05:43 02/15/2023 [id number] I have personall y reviewed the data obtained and entered from the scribe, medical lab technician or nurse for this patient for this patient encounter. Discussed with patient. Plan to proceed with flexible laryngoscopy in follow-up appointment in 2 weeks, to allow improvement of TMJ Not available 02/15/2023 13:55:42 02/27/2023 [id number] I have personall y reviewed the data obtained and entered from the scribe, medical lab technician or nurse for this patient for this [...] secon ds 9.9-11 .7 low Not Available [facility] (Lab) [address] [place] [address] [place], [address], 07/05/2023 16:41:17 07/05/19 24 07/05/2023 PT (PROT HROMB IN TIME) W/INR INR 0.9 0.9-1. 1 Not Available [facility] (Lab) [address] [place] [address] [place], [address], 07/05/2023 16:41:17 07/05/19 24 07/05/2023 PTT (APTT ) APTT 22.7 secon ds 20-30 Not Available [facility] (Lab) [address] [place] [address] [place], [address], 07/05/2023 16:43:31 07/05/19 24 07/05/2023 COMPR EHENS ANGELO METAB OLIC PANEL sodium 139 mmol/ L 136-14 5 Not Available [facility] (Lab) [address] [place] [address] [place], [address], 07/05/2023 16:44:37 07/05/19 24 07/05/2023 COMPR EHENS ANGELO METAB OLIC PANEL potassium 3.5 mmol/ L 3.5-5. 1 Not Available [facility] (Lab) [address] [place], [address], 07/05/2023 16:44:37 07/05/19 24 07/05/2023 COMPR EHENS ANGELO METAB OLIC PANEL chloride 100 mmol/ L 98.0-1 07.0 Not Available [facility] (Lab) [address] [place], [address], 07/05/2023 16:44:37 07/05/19 24 07/05/2023 COMPR EHENS ANGELO METAB OLIC PANEL total CO2 31 mmol/ L 21-32 Not Available [facility] (Lab) [address] [place], [address], 07/05/2023 16:44:37 07/05/19 24 07/05/2023 COMPR EHENS ANGELO METAB OLIC PANEL anion gap 11.5 mmol/ L 5.0-15 .0 Not Available [facility] (Lab) [address] [place], [address], 07/05/2023 16:44:37 07/05/19 24 07/05/2023 COMPR EHENS ANGELO METAB OLIC PANEL glucose 110 mg/dL 70-120 Not Available [facility] (Lab) [address] [place], [address], 07/05/2023 16:44:37 07/05/19 24 07/05/2023 COMPR EHENS ANGELO METAB OLIC PANEL BUN 16 mg/dL 7-18 Not Available [facility] (Lab) [address] [place], [address], 07/05/2023 16:44:37 07/05/19 24 07/05/2023 COMPR EHENS ANGELO METAB OLIC PANEL creatinine 0.9 mg/dL 0.6-1. 0 Not Available [facility] (Lab) [address] [place], [address], 07/05/2023 16:44:37 07/05/19 24 07/05/2023 COMPR EHENS ANGELO METAB OLIC PANEL BUN/creatini ne ratio 17.8 ratio 9-21 Not Available [facility] (Lab) [address] [place], [address], 07/05/2023 16:44:37 07/05/19 24 07/05/2023 COMPR EHENS ANGELO METAB OLIC PANEL estimated glom filtration rate >60 mL/mi n 60.0- Not Available [facility] (Lab) [address] [place], [address], 07/05/2023 16:44:37 07/05/19 24 07/05/2023 COMPR EHENS ANGELO METAB OLIC PANEL calcium 10.1 mg/dL 8.6-9. 8 high Not Available [facility] (Lab) [address] [place], [address], 07/05/2023 16:44:37 07/05/19 24 07/05/2023 COMPR EHENS ANGELO METAB OLIC PANEL bilirubin, total 0.2 mg/dL 0.2-1. 0 USE OF THIS ASSAY IS NOT RECOM XIANG D FOR PATIE NTS UNDER GOING TREAT MENT WITH ELTRO MBOPA G DUE TO THE POTEN TIAL FOR FALSE LY ELEVA TAVO RESUL TS. Not Available [facility] (Lab) [address] [place], [address], 07/05/2023 16:44:37 07/05/19 24 07/05/2023 COMPR EHENS ANGELO METAB OLIC PANEL AST (SGOT) 11 IU/L 15-37 low Not Available [facility] (Lab) [address] [place], [address], 07/05/2023 16:44:37 07/05/19 24 07/05/2023 COMPR EHENS ANGELO METAB OLIC PANEL ALT (SGPT) 21 IU/L 12-78 Not Available [facility] (Lab) [address] [place], [address], 07/05/2023 16:44:37 07/05/19 24 07/05/2023 COMPR EHENS ANGELO METAB OLIC PANEL alk phos 108 IU/L 54-369 Not Available [facility] (Lab) [address] [place], [address], 07/05/2023 16:44:37 07/05/19 24 07/05/2023 COMPR EHENS ANGELO METAB OLIC PANEL total protein 8.1 g/dL 6.4-8. 2 Not Available [facility] (Lab) [address] [place], [address], 07/05/2023 16:44:37 07/05/19 24 07/05/2023 COMPR EHENS ANGELO METAB OLIC PANEL albumin 3.8 g/dL 3.4-5. 0 Not Available [facility] (Lab) [address] [place], [address], 07/05/2023 16:44:37 07/05/19 24 07/05/2023 COMPR EHENS ANGELO METAB OLIC PANEL globulin 4.3 g/dL 1.3-3. 5 high Not Available [facility] (Lab) [address] [place], [address], 07/05/2023 16:44:37 07/05/19 24 07/05/2023 COMPR EHENS ANGELO METAB OLIC PANEL alb/glob ratio 0.9 ratio 1.0-3. 9 low Not Available [facility] (Lab) [address] [place], [address], 07/05/2023 16:44:37 07/05/19 24 07/05/2023 COMPR EHENS ANGELO METAB OLIC PANEL osmolality, calculated 279 mOsm/ kg 272-29 5 Not Available [facility] (Lab) [address] [place], [address], 07/05/2023 16:44:37 07/05/19 24 07/05/2023 TROPO SONIA I troponin I, high sensitive <4 pg/mL -<52 Not Available [facility] (Lab) [address] [place], [address], 07/05/2023 16:44:38 07/05/19 24 07/05/2023 TROPO SONIA I initial? YES yes/no /unk Not Available [facility] (Lab) [address] [place], [address], 07/05/2023 16:44:38 07/05/19 24 07/05/2023 LIPAS E lipase 47 U/L 16- Not Available [facility] (Lab) [address] [place], [address], 07/05/2023 16:44:39 07/05/19 24 07/05/2023 CBC WITH AUTO DIFF WBC 21.4 10 4.5-11 .5 high Not Available [facility] (Lab) [address] [place], [address], 07/05/2023 17:04:36 07/05/19 24 07/05/2023 CBC WITH AUTO DIFF RBC 4.74 10 4.00-5 .40 Not Available [facility] (Lab) [address] [place], [address], 07/05/2023 17:04:36 07/05/19 24 07/05/2023 CBC WITH AUTO DIFF hemoglobin 14.9 g/dL 12.0-1 5.0 Not Available [facility] (Lab) [address] [place], [address], 07/05/2023 17:04:36 07/05/19 24 07/05/2023 CBC WITH AUTO DIFF hematocrit 45.9 % 35.0-4 9.0 Not Available [facility] (Lab) [address] [place], [address], 07/05/2023 17:04:36 07/05/19 24 07/05/2023 CBC WITH AUTO DIFF MCV 96.8 fL 80-100 Not Available [facility] (Lab) [address] [place], [address], 07/05/2023 17:04:36 07/05/19 24 07/05/2023 CBC WITH AUTO DIFF MCH 31.4 pg 26-32 Not Available [facility] (Lab) [address] [place], [address], 07/05/2023 17:04:36 07/05/19 24 07/05/2023 CBC WITH AUTO DIFF MCHC 32.5 g/dL 32-36 Not Available [facility] (Lab) [address] [place], [address], 07/05/2023 17:04:36 07/05/19 24 07/05/2023 CBC WITH AUTO DIFF RDW 14.1 % 11.5-1 4.5 Not Available [facility] (Lab) [address] [place], [address], 07/05/2023 17:04:36 07/05/19 24 07/05/2023 CBC WITH AUTO DIFF platelet count 420 10 150-45 0 Not Available [facility] (Lab) [address] [place], [address], 07/05/2023 17:04:36 07/05/19 24 07/05/2023 CBC WITH AUTO DIFF mean platelet volume 10.4 fL 6.8-10 .2 high Not Available [facility] (Lab) [address] [place], [address], 07/05/2023 17:04:36 07/05/19 24 07/05/2023 CBC WITH AUTO DIFF manual differential PERFOR MED Not Available [facility] (Lab) [address] [place], [address], 07/05/2023 17:04:36 07/05/19 24 07/05/2023 CBC WITH AUTO DIFF platelet estimate ADEQUA TE Not Available [facility] (Lab) [address] [place], [address], 07/05/2023 17:04:36 07/05/19 24 07/05/2023 CBC WITH AUTO DIFF RBC morphology NORMAL Not Available [facility] [address] [place], [address], 07/05/2023 17:04:36 07/05/19 24 07/05/2023 CBC WITH AUTO DIFF ne% 73.0 % 50-70 high Not Available [facility] (Lab) [address] [place], [address], 07/05/2023 17:04:36 07/05/19 24 07/05/2023 CBC WITH AUTO DIFF lymphs 16.9 % 18-42 low Not Available [facility] (Lab) [address] [place], [address], 07/05/2023 17:04:36 07/05/19 24 07/05/2023 CBC WITH AUTO DIFF MO% 7.8 % 2-11 Not Available [facility] (Lab) [address] [place], [address], 07/05/2023 17:04:36 07/05/19 24 07/05/2023 CBC WITH AUTO DIFF eo% 2.2 % 1-3 Not Available [facility] (Lab) [address] [place], [address], 07/05/2023 17:04:36 07/05/19 24 07/05/2023 CBC WITH AUTO DIFF ba% 0.1 % 0.0-2. 0 Not Available [facility] (Lab) [address] [place], [address], 07/05/2023 17:04:36 07/05/19 24 07/05/2023 CBC WITH AUTO DIFF neutrophils (absolute) 15.6 K/uL 2.0-6. 9 high Not Available [facility] (Lab) [address] [place], [address], 07/05/2023 17:04:36 07/05/19 24 07/05/2023 CBC WITH AUTO DIFF lymphocytes (absolute) 3.6 K/uL 0.6-3. 4 high Not Available [facility] (Lab) [address] [place], [address], 07/05/2023 17:04:36 07/05/19 24 07/05/2023 CBC WITH AUTO DIFF monocytes (absolute) 1.7 K/uL 0.0-0. 9 high Not Available [facility] (Lab) [address] [place], [address], 07/05/2023 17:04:36 07/05/19 24 07/05/2023 CBC WITH AUTO DIFF eosinophils (absolute) 0.5 K/uL 0.0-0. 7 Not Available [facility] (Lab) [address] [place], [address], 07/05/2023 17:04:36 07/05/19 24 07/05/2023 CBC WITH AUTO DIFF basophils (absolute) 0.0 K/uL 0.0-0. 2 Not Available [facility] (Lab) [address] [place], [address], 07/05/2023 17:04:36 07/05/19 24 07/05/2023 CBC WITH AUTO DIFF segmented neutrophil 74 % 40-75 Not Available [facility]) [address] [place], [address], 07/05/2023 17:04:36 07/05/19 24 07/05/2023 CBC WITH AUTO DIFF lymphocyte 17 % Not Available [facility] (Lab) [address] [place], [address], 07/05/2023 17:04:36 07/05/19 24 07/05/2023 CBC WITH AUTO DIFF monocyte 7 % 0-12 Not Available [facility] (Lab) [address] [place], [address], 07/05/2023 17:04:36 07/05/19 24 07/05/2023 CBC WITH AUTO DIFF eosinophil 2 % Not Available [facility] (Lab) [address] [place], [address], 07/05/2023 17:04:36 07/05/19 24 07/05/2023 OCCUL T BLOOD fecal occult blood,single spec POSITI VE negati ve delta Not Available [facility] (Lab) [address] [place], [address], 07/05/2023 17:42:47 07/05/19 24 07/05/2023 OCCUL T BLOOD occult blood internal control PASS PASS Not Available [facility] (Lab) [address] [place], [address], 07/05/2023 17:42:47 07/05/19 24 07/05/2023 UA-CU LTURE IF INDIC ATED color YELLOW yellow Not Available [facility] (Lab) [address] [place], [address], 07/05/2023 17:49:05 07/05/19 24 07/05/2023 UA-CU LTURE IF INDIC ATED clarity CLEAR clear Not Available [facility] (Lab) [address] [place], [address], 07/05/2023 17:49:05 07/05/19 24 07/05/2023 UA-CU LTURE IF INDIC ATED glucose NEGATI VE negati ve Not Available [facility] (Lab) [address] [place], [address], 07/05/2023 17:49:05 07/05/19 24 07/05/2023 UA-CU LTURE IF INDIC ATED bilirubin NEGATI VE negati ve Not Available [facility] (Lab) [address] [place], [address], 07/05/2023 17:49:05 07/05/19 24 07/05/2023 UA-CU LTURE IF INDIC ATED ketones NEGATI VE negati ve Not Available [facility] (Lab) [address] [place], [address], 07/05/2023 17:49:05 07/05/19 24 07/05/2023 UA-CU LTURE IF INDIC ATED specific gravity 1.015 1.00 - >=1.03 0 Not Available [facility] (Lab) [address] [place], [address], 07/05/2023 17:49:05 07/05/19 24 07/05/2023 UA-CU LTURE IF INDIC ATED blood NEGATI VE negati ve Not Available [facility] (Lab) [address] [place], [address], 07/05/2023 17:49:05 07/05/19 24 07/05/2023 UA-CU LTURE IF INDIC ATED pH 6.0 5 - 8 Not Available [facility] (Lab) [address] [place], [address], 07/05/2023 17:49:05 07/05/19 24 07/05/2023 UA-CU LTURE IF INDIC ATED protein NEGATI VE negati ve Not Available [facility] (Lab) [address] [place], [address], 07/05/2023 17:49:05 07/05/19 24 07/05/2023 UA-CU LTURE IF INDIC ATED urobilinogen 0.2 mg/dL 0.2 - 1.0 Not Available [facility] (Lab) [address] [place], [address], 07/05/2023 17:49:05 07/05/19 24 07/05/2023 UA-CU LTURE IF INDIC ATED nitrite NEGATI VE negati ve Not Available [facility] (Lab) [address] [place], [address], 07/05/2023 17:49:05 07/05/19 24 07/05/2023 UA-CU LTURE IF INDIC ATED leukocyte esterase NEGATI VE negati ve Not Available [facility] (Lab) [address] [place], [address], 07/05/2023 17:49:05 07/05/19 24 07/05/2023 UA-CU LTURE IF INDIC ATED UA microscopic NOT INDICA TAVO Not Available [facility] (Lab) [address] [place], [address], 07/05/2023 17:49:05 07/05/19 24 07/05/2023 UA-CU LTURE IF INDIC ATED method of collection VOIDED Not Available [facility]) [address] [place], [address], 07/05/2023 17:49:05 07/05/19 24 07/05/2023 UA-CU LTURE IF INDIC ATED culture setup C&S NOT INDIC Not Available [facility] (Lab) [address] [place], [address], 07/05/2023 17:49:05 07/05/19 24 07/05/2023 TROPO SONIA 3 HOUR troponin I, high sensitive <4 pg/mL -<52 Not Available [facility] (Lab) [address] [place], [address], 07/05/2023 18:41:26 10/17/19 25 10/16/2024 COMPR EHENS ANGELO DRUG SCREE N note See Note Order ing Provi morgan: DANA SETHIE PITTING MACHINE OPERATOR GILLI LAND Not Available [address] [place], [address], 11/03/2024 11:42:02 10/17/19 25 10/16/2024 COMPR EHENS [...] the Food and Drug Admin istra tion. TRAMDenzel JOHN,M S,WB/ SP RFX Trama dol Confi rmati on Posit angelo Trama dol 264.3 ng/mL O-Ry methy ltram adol 23.3 ng/mL Confi rmati on thres hold: 10 ng/mL [facility] Dir: Cheyenne kincaid,Juanis Arteaga [address] [facility] [place] [address] For inqui virgilio, the physi oxana may conta ct Bran [phone] Lab:8 [phone] Not Available [address], [place], [address], 11/03/2024 11:42:02 10/17/19 25 10/16/2024 COMPR EHENS ANGELO DRUG SCREE N performing lab see note LC2 - LABCO RP CLIEN T# [id number] [id number] [place] [address] Not Available [address] , [place], [address], 11/03/2024 11:42:02 11/17/19 23 11/16/2022 - venessa ble Pa/AP -2obl -twne s [facility] Name: XIOMARA GUNN [address] [place] [address] Phys: Bret ARTEAGA,[place] [address] : 1974 Age: 47 Sex: F Acct: [id number] Loc: FranciscaRAD PHONE #: Exam Date: 2022 Status : REG CLI FAX #: Rad# [id number] Unit# [id number] Admit Date: 2022 EXAMS: CPT CODE: [id number] MANDIB LE PA/AP- 2OBL-T WNES 11707 4 VIEWS OF THE MANDIB LE, 023: [...] MILENA GRIJALVA MD CC: Deacon Queen MD; Willia m R. Poczat ek [employer] Dictat ed Date/T leatha: 2022 (1331) Techno logist : YOHANNES TAVAREZ; MILENA ER STEWAR T Transc ribed Date/T leatha: 2022 (1331) Transc riptio nist: DR.HAG KHANH George onic Signat ure Date/T leatha: 2022 (1331) Printe d Date/T leatha: 2022 (1353) BATCH NO: N/A PAGE 1 Signed Report CC'ed Logic: Orderi ng Provid er: BRET MCKEON Attend ing Provid er: BRET MCKEON Referr ing Provid er: BRET MCKEON Consul ting Provid er: POCZAT TEX velasco [address] , [place], [address], 11/16/2022 15:06:47 07/05/19 24 07/05/2023 CT ABD[facility] [address] [place] [address] Phone: Fax: Name: ILDA GUNN Exam Date: 024 : 1974 Age 48 years Gender : F Access ion: [id number] Physic vaibhav: Esdras Teague [facility]: Outpat ient Exam: CT ABD/PE [...] Elias thomas MD All CT scans at [facility] are perfor med using dose optimi [...] you for referr ing ILDA GUNN to [facility]. Legall y authen ticate d by RIAN Bush 18:21: 14 CC'ed Logic: Orderi ng Provid er: MYLENE EPPERSON Attend ing Provid er: MYLENE EPPERSON Referr ing Provid er: MYLENE EPPERSON Admitt ing Provid er: MYLENE EPPERSON ack1 [facility] (Imaging) [address] [place] [address] [place], [address], 09/07/2023 09:27:46 Result Notes None recorded. Problems Name Problem SNOMED Code Status Onset Date Resolution Date Notes Provider Name and Address Organization Details Recorded Time Obstructive sleep apnea syndrome 92008266 Active 2022 Rip Carl MD [address] [place] [address],[address], [address], [place] - [facility] - [facility] & [place] 3 07:18:56 Essential hypertension 22580588 Active 2022 Rose Marie Smith null, [place] - [facility] - [place] & [place] 3 12:50:26 Hoarse 62164866 Active 2022 Rip Carl MD [address] [place] [address],Pat te [address] [place] [address], [address], [place] - [facility] - [facility] & [place] 3 11:56:15 Problem Notes None recorded. Procedures Surgical History Date Name Laterality Status Provider Name and Address Organization Details Recorded Time 11/15/19 23 EMG/ Nerve Conduction Study completed Ney Arteaga M.D [address] [place] [address], [address], [place], [address], [place] [facility] - [facility] & [place] 11/18/2022 16:56:24 04/10/20 22 completed Crystal [place]wine [place] - [place] - [place] & [place] 08/11/2022 09:33:49 04/17/20 18 Date of Last Colonoscopy completed Crystal Earlywine [place] - [place] - [place] & [place] 08/11/2022 09:33:49 cholecystectomy completed Ilz Llamas [place] - [place] - [place] & [place] 05/23/2022 08:27:30 hysterectomy completed Liz [place]lamas [place] - [place] & [place] 05/23/2022 08:27:41 laparoscopy completed Liz Llamas [place] - [place] - [place] & [place] 05/23/2022 08:27:48 Other completed Crystal Earlywine [place] - [place] - [place] & [place] 08/11/2022 09:33:50 Imaging Results None recorded. Procedure Notes None recorded. Medical Equipment None Reported. Allergies Allergen ID Allergen Name Allergen Category Reaction Reaction Severity Criticality Documentation Date Start Date Code Code System Note Provider Name and Address Organization Details Recorded Time 97453 Substance with sulfonami de structure and antibacte rial mechanism of action (substanc e) medicatio n Not available Not available Not available 05/23/2022 94536 8003 SNOMED MARCUS Rodriguez [facility] & [place] 3 08:23:54 90273 acetamino phen / hydrocodo ne medicatio n Not available Not available Not available 05/23/2022 36757 2 RxNorm Liz kidd[facility] [place] 3 08:24:00 73241 fentanyl medicatio n Not available Not available Not available 05/23/2022 4337 RxNorm MARCUS Rodriguez [facility] & [place] 3 08:24:07 69440 acetamino phen / oxycodone medicatio n Not available Not available Not available 05/23/2022 98302 3 RxNorm Lizdenzel kidd, MARCUS - [facility] & [place] 3 08:24:14 45163 Demerol medicatio n Not available Not available Not available 05/23/2022 79491 1 RxNorm Lizdenzel kidd, MARCUS - [facility] & [place] 3 08:24:40 01652 Tylenol medicatio n Not available Not available Not available 05/23/202224867 3 RxNorm Liz kidd, MARCUS - [facility] & [place] 3 08:24:45 18469 hydrocodo ne Not available Not available Not available Not available 05/23/2022 5489 RxNorm MARCUS Rodriguez - [facility] & [place] 3 08:24:54 76672 morphine medicatio n Not available Not available Not available 05/23/2022 7052 RxNorm MARCUS Rodriguez - [facility] & [place] 3 08:25:00 31956 acetamino phen medicatio n Not available Not available Not available 10/11/2022 161 RxNorm [facility] [place] [facility] & [place] 3 12:49:18 Medications Name Sig Start Date [...] Address Organization Details Last Updated DateTime 5 23103.6 1 g 98.1 [degF] 96 % 96 % 82 /min 16 /min 136/80 mm[Hg] Lynne Adame [place] - [facility] - [place] & [place] 5 13:09:01 Date Recorded Body height Body mass index (BMI) Body weight Heart rate Oxygen saturation Oxygen saturation in Arterial blood by Pulse oximetry Body temperature Systolic And Diastolic Provider Name and Address Organization Details Last Updated DateTime 3 167.64 cm 32 kg/m2 65988.7 3 g 76 /min 98 % 98 % 97.6 [degF] 119/64 mm[Hg] Liz Morris [facility] & [place] 3 09:52:55 Date Recorded Body height Oxygen saturation Oxygen saturation in Arterial blood by Pulse oximetry Heart rate Systolic And Diastolic Provider Name and Address Organization Details Last Updated DateTime 3 167.64 cm 99 % 99 % 88 /min 138/95 mm[Hg] Rose Marie SMITH [facility] & [place] 3 13:40:36 Social History Question Answer Notes LastModified by Organizat ion Details LastModified Time Tobacco Smoking Status Former Smoker former 2 PPD x 15 years Crystal MARCUS Saenz [facility] [place] 08/11/2022 09:43:18 Do You Have An Advance Directive? No Information not available 08/11/2022 Are You Blind Or Do You Have Difficulty Seeing? No Information not available 08/11/2022 When Did You Quit Smoking? 6-10yearssi ncelastciga rette Quit 2014 Information not available 02/27/2023 What Was The [...] anxious, or unable to sleep at night)? [id number] Information not available 08/11/2022 Family History Nothing [...] SNOMED-CT Code Diagnosis ICD10 Code Diagnosis Note [id number] MD QUOC Dangelo General Surgery [address] [place] [address] 05/23/2022 08:01:23 05/23/2022 09:08:09 Ventral incisional hernia 130233825 K43.2 small, observatio n for now. If this ever significan tly enlarges or if she has significan tly increased symptoms will have her return to the office for re-evaluat ion. The patient states that she is up-to-date on her colonoscop ies. Obesity 938808535 E66.9 [id number] MD QUOC [facility] [address] [place] [address] [place] [address] 08/11/2022 09:17:35 08/11/2022 09:44:41 Obstructive sleep apnea syndrome 54082729 G47.33 [id number] MD QUOC [facility] [address] [place] [address] 10/17/2022 12:54:10 10/17/2022 13:52:08 Temporomandibular joint disorder 00698473 M26.609 [id number] MD QUOC [facility] [address] [place] [address] [place] [address] 02/05/2023 11:23:40 02/05/2023 12:05:10 Obstructive sleep apnea syndrome 66596701 G47.33 [id number] Deacon Queen MD [address] [place] [address] 11/16/2022 08:53:10 11/16/2022 09:22:50 Bilateral earache 049689627 H92.03 Pain of temporomandibular joint 13722317 M26.629 [id number] Ney Arteaga M.D [facility] [address],[facility] [address] [place] [address] 11/14/2022 13:53:07 11/14/2022 15:09:29 Bilateral carpal tunnel syndrome [id number] G56.03 Sensory disorder 4756114 8 R20.1 Abnormal sensation 13529 2000 R20.8 [id number] MD QUOC Dangelo General Surgery [address] [place] [address],[address] [place] [address] 8 11/24/2022 09:29:44 11/24/2022 10:18:03 Abdominal pain 34851476 R10.9 I am not able to appreciate any hernia on today's exam. Gastroesop hageal reflux disease without esophagitis 735729435 K21.9 The patient is being treated with PPI. [id number] Decaon Queen MD [place] [address] 8 02/15/2023 13:09:20 02/15/2023 13:52:37 Pain of temporomandibular joint 20068753 M26.629 Dysphonia 51027199 R49.9 [id number] Deacon Queen MD [place] [address] 8 02/27/2023 13:01:04 02/27/2023 13:26:23 Pain of temporomandibular joint 49217465 M26.629 Dysphonia 60956185 R49.9 Gastroesop hageal reflux disease 745602445 K21.9 [id number] GUZMAN ZULETA, LAWRENCE [facility] [address] [place] [address] 8 10/16/2024 12:59:57 10/16/2024 14:11:06 Temporomandibular joint disorder 40564301 M26.609 Health Concerns Section Related Observation LastModified by Organization Detai ls LastModified Time None Recorded Concern Status LastModified by Organization Details LastModified Time None Recorded Advance Directives Directive N: Payers Insurance Date Sequence Insurance Name Policy Number Policy Rao Covered Member ID Rao Member ID Guarantor Name 10/22/2024 1 [facility] (MEDICAID REPLACEMENT - HMO) Ilda Gonzales [id number] Ilda Gonzales 10/16/2024 1 [place] [id number] Genia Gonzales [id number] Ilda Gonzales 02/06/2023 1 [place] BL[place] PREFERRED PRIMARY (HMO[place] Genia Gonzales [id number] Ilda Gonzales 02/06/2023 1 [place] [id number] Ilda Gonzlaes [id number] Ilda Gonzales OBGyn Episode No OBEpisode recorded.
--- OUTSIDE RECORDS SUMMARY | 2024-12-01 13:37 | XMS_ITS | Encounter Summary ---
Author Organization [employer] ([place], [place], [place], [place]) Address [address] [place] [address] Care Team Providers Care Clinical Systems Educator Name Role Phone Godfrey Trimble NP Primary Care Provider [phone] Bennie Arauz MD Primary Care Provider [phone] Encounter Details Date Type Department Care Team (Late st Contact Info) Description 08/23/2022 Outside Orders [facility] Admitting [address] [place] [address] Brandon Mitchell MD [address] [place] [id number] Social History Tobacco Use Types Packs/Day Years [...] Office Visit [facility] - [address] [place] [address] Brandon Mitchell MD [address] [place] [address] documented as of this encounter Visit Diagnoses Not on filedocumented in this encounter Care Teams Clinical Systems Educator Relationship Specialty Start Date End Date Godfrey Trimble NP [address] [place] [address] PCP - General Nurse Practitioner 08/23/22 06/22/23 Bennie Arauz MD [address] [place] [address] PCP - General Orthopedic Surgery 06/23/23 documented as of this encounter
--- OUTSIDE RECORDS SUMMARY | 2024-12-01 13:38 | XMS_ITS | Continuity of Care Document ---
Author Organization [facility] Address [address] [place] [address] Assessment No assessment recorded. Plan of Treatment Reminders Order Date Submit Date Provider Last Modified By Organization Details Last Modified Time Details Appointments None recorded. Lab None recorded. Referral neurologist referral 2024 025 [facility] - Centralized Scheduling, [address] [place], [address], 10:41:07 Procedures None recorded. Surgeries None recorded. Imaging None recorded. Medication Orders None recorded. Patient TargetsNo targets recorded. Patient Instructions Encounter Date Encounter Id Patient Instructions Last Modified By Organization Details Last Modified Time 10/27/2024 [id number] Plan: - Her nex t Pain Management appt is October - RTC if s/sx persist or worsen. [email or web address] Not available 10/27/2024 14:26:53 Reason for Referral Neurologist Referral for Num bness of lower limb Referring Physician: Godfrey Trimble, Family Medicine, Encounter Date: 10/27/2024 Problems Name Problem SNOMED Code Status Onset Date Resolution Date Notes Provider Name and Address Organization Details Recorded Time Suspecte d COVID-19 [id number] Completed 08/30/2020 Removal Reason: Problem added by user [email or web address] from the COVID-19 watch flag Shellie Bhupinder null, [place] - [facility] 1 13:59:44 Depressi ve disorder 18097306 Active Shannan Stone null, [place] - [facility] 4 09:18:54 Osteoart hritis 545168014 Active Shannan Stone null, [place] - [facility] 4 09:18:54 Anxiety 54820860 Active Shannan Stone null[place] - [facility] 4 09:18:54 Diarrhea 61562083 Active Shannan Stone [place] - [facility] 4 09:18:54 Cardiac arrhythm ia 475355136 Active Shannan Stone null[place] - [facility] 4 09:18:54 Bursitis 83391502 Active Shannan Stone null, [place] - [facility] 4 09:18:54 Body mass index 30+ - obesity 610153426 Active 2016 Shannan Stone null, [place] - [facility] 4 09:18:53 [facility] 62269971 Active 2017 Godfrey Trimble, [employer] [address], [place], [address], [place] - [facility] 8 09:17:52 Gastriti s 2901537 Active 2018 Shannan Stone null, [place] - [facility] 4 09:18:54 Excessiv e caffeine intake 80514470512 4109 Active 2018 Shannan Stone null[place] - [facility] 4 09:18:54 Adverse reaction to caffeine 413983250 Active 2018 Shannan Stone null[place] - [facility] 4 09:18:53 Postsurg ical menopaus e 683139308 Active 2018 Shannan Stone null[place] - [facility] 4 09:18:54 Pain of breast 11140984 Active 2018 Shannan Stone null[place] - [facility] 4 09:18:54 Fibrocys tic disease of breast 02378374 Active 2018 Shannan Stone null[place] - [facility] 4 09:18:54 Mammogra phy abnormal 656494086 Active 2018 Shannan Stone null, [place] - [facility] 4 09:18:53 Viral screenin g Active 2020 Shannan Stone null[place] - [facility] 4 09:18:53 Aortic valve regurgit ation 52348752 Active 2022 Shannan Alberto null, [place] - [facility] 4 09:18:54 Vitamin D deficien 49171856 Active 2022 Shannan Alberto null, [place] - [facility] 4 09:18:54 Body mass index 25-29 - overweig 216267467 Active 2024 Ni Blade , [employer] [address], [place], [address], [place] - [facility] 5 15:31:41 Overwekit [facility] 830665782 Active 2024 Ni Blade , [employer] [address], [place], [address], [place] - [facility] 5 15:31:43 Problem Notes None recorded. Procedures Surgical History Date Name Laterality Status Provider Name and Address Organization Details Recorded Time 024 Medication Reconcilliation completed [facility] 07/11/2023 11:47:52 023 Date of Last Mammogram completed Gem Bravo APRN [address], [place], [address], [place] - [facility] 12/27/2022 16:04:29 022 Medication Reconcilliation completed Radha Seals RN [address], [place], [address], [facility] - [facility] 06/01/2021 10:09:05 021 Systolic B/P less than 130 mm Hg completed [facility] 07/07/2020 10:25:46 021 Diastolic B/P 80-89 mm Hg completed [facility] 07/07/2020 10:25:47 021 Systolic B/P less than 130 mm Hg completed [facility] 05/31/2020 10:46:42 021 Diastolic B/P less than 80 mm Hg completed [facility] 05/31/2020 10:46:43 020 Systolic B/P less than 130 mm Hg completed [facility] 01/16/2020 09:15:35 020 Diastolic B/P less than 80 mm Hg completed [facility] 01/16/2020 09:15:38 020 Systolic B/P less than 130 mm Hg completed [facility] 07/28/2019 15:15:52 020 Diastolic B/P less than 80 mm Hg completed [facility] 07/28/2019 15:15:54 020 Medication Reconcilliation completed [facility] 07/28/2019 15:11:41 020 Systolic B/P less than 130 mm Hg completed [facility] 07/02/2019 10:41:48 020 Diastolic B/P 80-89 mm Hg completed [facility] 07/02/2019 10:41:49 019 Systolic B/P less than 130 mm Hg completed [facility] 03/19/2019 08:49:31 019 Diastolic B/P 80-89 mm Hg completed [facility] 03/19/2019 08:49:33 019 Medication Reconcilliation completed [facility] 03/19/2019 08:45:38 019 Systolic B/P less than 130 mm Hg completed [facility] 02/26/2019 09:14:09 019 Diastolic B/P less than 80 mm Hg completed [facility] 02/26/2019 09:14:10 019 Medication Reconcilliation completed [facility] 02/26/2019 09:05:04 019 Systolic B/P less than 130 mm Hg completed Mary Bridges [facility] 02/03/2019 13:43:33 019 Diastolic B/P less than 80 mm Hg completed Mary Bridges [facility] 02/03/2019 13:43:41 019 Medication Reconcilliation completed Mary Bridges [facility] 02/03/2019 13:33:44 019 Systolic B/P less than 130 mm Hg completed Angy Nehemias [place] - [facility] 01/01/2019 10:19:51 019 Diastolic B/P 80-89 mm Hg completed Angy Del Cid [place] - [facility] 01/01/2019 10:19:53 019 Systolic B/P less than 130 mm Hg completed Angy Del Cid [place] - [facility] 11/12/2018 11:07:42 019 Diastolic B/P 80-89 mm Hg completed Angy Del Cid [place] - [facility] 11/12/2018 11:07:44 019 Endoscopy completed Lydia Johnson [place] - [facility] 01/15/2019 13:39:39 018 Date of Last Colonoscopy completed Angy Del Cid [place] - [facility] 07/24/2022 09:17:35 018 Cholecystectomy, laparoscopic completed Lydia [place] [facility] 01/15/2019 13:38:22 Orthopedic Surgery completed Rossana Gomes [place] - [facility] 12/13/2022 14:45:33 Hysterectomy, Total Abdominal completed Lydia Samuels [place] - [facility] 01/17/2019 10:46:02 Imaging Results None recorded. Procedure Notes None recorded. Medical Equipment None Reported. Allergies Allergen ID Allergen Name Allergen Category Reaction Reaction Severity Criticality Documentation Date Start Date Code Code System Note Provider Name and Address Organization Details Recorded Time 055123 Demerol medicatio n vomiting Not available Not available 08/12/2018 08904 1 RxNorm Kalpana Angie null, [place] - [facility] 9 10:33:47 461106 morphine medicatio n vomiting Not available Not available 01/17/2019 7052 RxNorm Amberndri a Elizabeth null, [place] - [facility] 9 10:42:57 002346 fentanyl medicatio n vomiting Not available Not available 01/17/2019 4337 RxNorm Amberndri a [place] null, [place] - [facility] 9 10:43:07 04057 Substance with sulfonami de structure and antibacte rial mechanism of action (substanc e) medicatio n Not available Not available Not available 02/11/20162007 09045 8003 SNOMED React ion: Vomit ting, dizzi ness; Comme nt: Sulfo namid es; Not Available [facility] 6 09:16:18 66734 acetamino phen medicatio n vomiting Not available Not available 02/11/20162007 161 RxNorm React ion: Nause a/vom iting ; Comme nt: aceta minop hen; Shannan Alberto null, [place] - [facility] 4 09:18:52 22000 hydrocodo ne bitartrat e medicatio n vomiting Not available Not available 02/11/20162007 62866 9 RxNorm React ion: Nause a/vom iting ; Comme nt: hydro codon e dannie trate ; Shannan Alberto null, [place] - [facility] 4 09:18:52 20364 acetamino phen / oxycodone medicatio n Not available Not available Not available 09/13/2016 43623 3 RxNorm vomit ing Kalpana Adams null, [...] ine 25 mg rectal supposito ry one IA q 6 hrs prn 07/13 completed phenerga [...] Updated DateTime 5 167.64 cm 26.9 kg/m2 75451.1 3 g 98.4 [degF] 17 /min 3 84 /min 98 % 98 % 120/74 mm[Hg] Angy Del Cid [place] - [facility] 5 14:03:57 Social History Question Answer Notes LastModified by Organizat ion Details LastModified Time Tobacco Smoking Status Current Every Day Smoker quit 2016 Angy Delc Id bernabe MARCUS - [facility] 06/26/2023 14:32:42 Able To Swim? Yes [email or web address] Information not available 11/27/2016 Do You Have An Advance Directive? No [email or web address] Information not available 11/27/2016 Do You Wear A Helmet When Biking? No [email or web address] Information not available 11/27/2016 Are You Blind Or Do You Have Difficulty Seeing? No [email or web address] Information not available 11/27/2016 Is Blood Transfusion Acceptable In An Emergency? Yes Information not available 12/13/2022 What Is Your Level Of Caffeine Consumption? Occasional [email or web address] Information not available 11/27/2016 In The 14 Days Before Symptom Onset, Have You Had Close Contact With A Laboratory-confi rmed COVID-19 While That Case Was Ill? No [email or web address] Information not available 01/20/2022 In The 14 Days Before Symptom Onset, Have You Had Close Contact With A Person Who Is Under Investigation For COVID-19 While That Person Was Ill? No [email or web address] Information not available 01/20/2022 Have You Been To An Area Known To Be High Risk For COVID-19? No [email or web address] Information not available 01/20/2022 Are You Deaf Or Do You Have Serious Difficulty Hearing? No [email or web address] Information not available 11/27/2016 What Type Of Diet Are You Following? REGULAR Information not available 11/27/2016 Which Illicit Or Recreational Drugs Have You Used? None [email or web address] Information not available 11/27/2016 Have You Processed Blood Or Body Fluids From An Ebola Virus Disease Patient Without Appropriate PPE? No [email or web address] Information not available 01/20/2022 Do You Reside In Or Have You Traveled To An Area Where Ebola Virus Transmission Is Active? No [email or web address] Information not available 01/20/2022 What Is The Highest Grade Or Level Of School You Have Completed Or The Highest Degree You Have Received? [id number] Information not available 12/13/2022 Swimming/diving Yes [email or web address] Informati on not available 11/27/2016 Have There Been Any Changes To Your Family Or Social Situation? No [email or web address] Information not available 01/20/2022 What Is The Fluoride Status Of Your Home? Fluoridated faxvasl21 Information not available 12/13/2022 Hard Of Hearing Or Deaf In One Or Both Ears? No Information not available 11/27/2016 Have You Recently Or Are You Planning To Travel To An Area With Zika Virus? No [email or web address] Information not available 01/20/2022 Legally Blind In One Or Both Eyes? No [email or web address] Information not available 11/27/2016 Do You Have A Medical Power Of Encyclopedia Research Worker? No [email or web address] Information not available 01/20/2022 What Was The Date Of Your Most Recent Tobacco Screening? 06/11/2024 [email or web address] Information not available 06/11/2024 How Many Children Do You Have? 1 Information not available 12/13/2022 What Is Your Relationship Status? Information not available 01/17/2019 Seat Belts Used Routinely Yes [email or web address] Information not available 11/27/2016 Are You Sexually Active? No [email or web address] Information not available 12/13/2022 Smoke Alarm In Home Yes [email or web address] Information not available 11/27/2016 Do You Have Smoke And Carbon Monoxide Detectors In Your Home? Yes [email or web address] Information not available 01/20/2022 Are You Passively Exposed To Smoke? No [email or web address] Information not available 11/27/2016 How Much Tobacco Do You Smoke? 1 PPD Started Back About 3 Months Ago. Smokes About 1 1/5 Packs Daily [email or web address] Information not available 06/26/2023 General Stress Level Medium [email or web address] Information not available 11/27/2016 Do You Use Sunscreen Routinely? Yes fjusqzl61 Information not available 11/27/2016 Has Tobacco Cessation Counseling Been Provided? Yes [email or web address] Information not available 12/13/2022 On What Date Was Tobacco Cessation Counseling Provided? 12/13/2022 Information not available 12/13/2022 How Many Years Have You Smoked Tobacco? 20 Information not available 01/17/2019 Do You Have Difficulty Walking Or Climbing Stairs? No [email or web address] Information not available 11/27/2016 What Contraceptive Method Was Reported At Start Of This Visit? Female Sterilization [email or web address] Information not available 12/13/2022 What Contraceptive Method Was Reported At End Of This Visit? Female Sterilization xzricpx53 Information not available 12/13/2022 Do You Want To Talk About Contraception Or Prevention During Your Visit Today? No - I Do Not Want To Talk About Contraception Today Because I Am Here For Something Else Information not available 12/13/2022 How Was The Contraceptive Method Provided? Provided On Site [email or web address] Information not available 12/13/2022 Do You Have Any Future Plans To Get ? No, I Don't Want To Become [email or web address] Information not available 12/13/2022 Sex: Female Functional Status Question Answer Note LastModified by Organizat ion Details LastModified Time Do you or have you ever used smokeless tobacco? Never used smokeless tobacco acdgqoq30 Information not available 01/01/2019 Are you currently employed? Yes [email or web address] Information not available 11/27/2016 Do you have transportation difficulties? No [email or web address] Information not available 01/20/2022 Are you able to care for yourself independently? Yes [email or web address] Information not available 11/27/2016 Do you have difficulty dressing, bathing, grooming, or toileting? No [email or web address] Information not available 11/27/2016 Do you or have you ever used e-cigarettes or vape? Never used electronic cigarettes Information not available 01/01/2019 What is your exercise level? Occasional [email or web address] Information not available 11/27/2016 Do you use any illicit or recreational drugs? No nsmbezs34 Information not available 01/20/2022 Do you or have you ever used any other forms of tobacco or nicotine? No vdwpsze20 Information not available 01/20/2022 What is your level of alcohol consumption? None [email or web address] Information not available 11/27/2016 What is your status? Not [email or web address] Information no t available 12/13/2022 Are you able to walk? YESWOREST [email or web address] Information not available 11/27/2016 Do you have difficulty doing errands alone? No [email or web address] Information not available 11/27/2016 What is your occupation? [employer] story - [employer] [facility] Information not available 01/17/2019 Mental Status Question Answer Note LastModified by Organizat ion Details LastModified Time Do you feel stressed (tense, restless, nervous, or anxious, or unable to sleep at night)? [id number] Information not available 12/13/2022 Do you have difficulty concentrating, remembering or making decisions? No [email or web address] Information no t available 11/27/2016 Family History Relationship Description Onset Age of this Age Resolved Age Notes LastModified by Organization Details LastModified Time Unspecified Relation Family history of malignant neoplasm Aunt [email or web address] Not available 2016 11:40:00 Unspecified Relation Family history of malignant neoplasm Uncle [email or web address] Not available 2016 11:40:00 Unspecified Relation Headache [email or web address] Not available 017 11:40:12 Unspecified Relation Neoplasm of skin Nephew [email or web address] Not available 2022 14:48:36 Paternal Grandmother Family [...] 11:42:15 Maternal Aunt Malignant tumor of breast [email or web address] Not available 2022 14:47:10 Notes:Stent placement - Fat er Medical History Condition Response Depression Y Migraine Headaches Y Acid Reflux (GERD) Y Tendonitis Y Gynecological History Statement/Question Response Abnormal Pap N Date of Last Mammogram 12/27/2022 On BCP's at Conception? N Post Menopausal Bleeding N STIs/STDs N HPV Vaccine N Current Control Method Hysterectom y Age at First Child 17 Last Lipids Date of Last Colonoscopy 2018 Sexually Active? [...] virus, quadrivalent, preservative 1 completed Jhony Swan [facility]10[facility]2020 11:58:57 pneumococcal polysaccharide PPV23 1 [facility]10[facility]2020 11:59:54 COVID-19, mRNA, LNP-S, bivalent, PF, 50 mcg/0.5 mL or 25mcg/0.25 mL dose 3 completed Godfrey Trimble, [employer] [address], [address], [facility] - [facility] 05/10/2022 09:46:24 Influenza, split virus, quadrivalent, preservative 4 completed [facility] 05/15/2023 09:19:00 Influenza, split virus, trivalent, preservative 5 completed Godfrey Trimble, [employer] [address], [place], [address], [facility] - [facility] 06/11/2024 11:08:06 Influenza, split virus, quadrivalent, preservative 8 completed Not Available [facility] 05/24/2019 03:55:24 Pneumococcal conjugate PCV 13 8 completed Not Available [facility] 05/24/2019 03:55:24 COVID-19, mRNA, LNP-S, PF, 100 mcg/0.5mL dose or 50 mcg/0.25mL dose 1 completed Not Available [facility] 05/15/2023 03:44:12 COVID-19, mRNA, LNP-S, PF, 100 mcg/0.5mL dose or 50 mcg/0.25mL dose 1 completed Not Available [facility] 05/15/2023 03:44:12 COVID-19, mRNA, LNP-S, PF, 100 mcg/0.5mL dose or 50 mcg/0.25mL dose 1 completed Not Available [facility] 05/15/2023 03:44:12 SARS-COV-2 (COVID-19) vaccine, UNSPECIFIED 3 completed Not Available [facility] 06/26/2023 14:12:53 Tdap 9 completed Not Available [facility] 05/24/2019 03:56:15 Influenza, split virus, quadrivalent, preservative 9 completed Not Available [facility] 05/24/2019 03:56:15 Past Encounters Encounter ID Performer Location Encounter Start Date Encounter Closed Date Diagnosis/Indication Diagnosis SNOMED-CT Code Diagnosis ICD10 Code Diagnosis Note [id number] SVETA Botello [facility] [address] [place] [address] 10/27/2024 13:49:52 10/27/2024 14:26:33 Numbness of lower limb 974986754 R20.0 [facility] [id number] M62.838 Health Concerns Section Related Observation LastModified by Organization Detai ls LastModified Time None Recorded Concern Status LastModified by Organization Details LastModified Time None Recorded Payers Encounter Date Sequence Insurance Name Policy Number Policy Rao Covered Member ID Rao Member ID Guarantor Name 10/27/2024 1 [facility] (MEDICAID REPLACEMENT - HMO) Genia Gonzales [id number] Ilda Gonzales OBGyn Episode No OBEpisode recorded.
--- NOTE | 2024-12-01 14:09 | EXP.PAIN.SOA ---
[facility] Disclaimer: The information contained in this section may have been updated after the patient was seen, as this information can be updated by other users. Medical History (Updated 12/01/24 @ 14:10 by Radha Castellano APRN) HTN (hypertension) GERD (gastroesophageal reflux disease) Fibromyalgia Surgical History History of knee replacement procedure of left knee Hx of cholecystectomy H/O: hysterectomy Hx of tonsillectomy Family History Other Cancer Hypertension Seizures Social History Smoking Status: Never smoker alcohol intake: never current occupational status: other Travel in the last 8 weeks?: None PM Subjective & Objective Subjective Subjective:: Patient is a pleasant 49-year-old female who presents today for worsening low back and left hip pain. She does also state it is in and around her left buttocks. Patient denies any new trauma or injury. She does state that ongoing pain is interfering with her ability perform activities of daily living such as cooking and cleaning. Patient does also make mention in future she would also like to see about doing TMJ joint injections. Patient states that she was seen a TMJ pain center there in [place] however that that provider is no longer there. Patient does also make mention that she may also be going back to another neurosurgeon for possible back surgery in future. Her Epifanio has been reviewed and is appropriate. Review of Systems: General: No recent weight changes, no fever, no sleep disturbances Respiratory: No cough, no shortness of air, no recurring pulmonary infections Cardiovascular/peripheral vascular: No chest pain, no palpitations, no edema, no shortness of breath Gastrointestinal: No new onset incontinence, normal bowel movements reported Genitourinary: No new onset incontinence Musculoskeletal: Low back pain, left hip pain, left buttocks pain Psychiatric: [Normal mood/affect] Neurological: [Denies weakness in extremities], [denies balance issues] Pain at rest (0-10 scale): 6 Objective Objective:: Physical Exam: General: Alert and oriented x3, no acute distress, pleasant and cooperative Lungs: Respirations even and unlabored, symmetrical chest expansion Eyes: PERRL Musculoskeletal: Flexion and extension of lumbar [spine] somewhat guarded secondary to pain, [antalgic gait noted] point tenderness along left SI with positive left Christiano's, Hermelindo's, Gaenslen's, compression and distraction exam Neurological: Speech clear, no gross sensory deficit Has patient had previous pain injection?: No Conservative treatment options previously tried: Home exercise plan Length of treatment: Longer than 12 weeks Meds Home Medications and Allergies Home Medications ?Medication ?Instructions ?Recorded ?Confirmed ?Type cyclobenzaprine 10 mg tablet 10 mg PO QIDP PRN . 12/20/23 10/29/24 History esomeprazole magnesium 40 mg 40 mg PO BID GERD 12/20/23 10/29/24 History capsule,delayed release famotidine 20 mg tablet 20 mg PO BID GERD 12/20/23 10/29/24 History hydrochlorothiazide 25 mg tablet 25 mg PO DAILYP PRN Fluid 12/20/23 10/29/24 History hydroxyzine HCl 25 mg tablet 25 mg PO HSP PRN Sleep 12/20/23 10/29/24 History loratadine 10 mg tablet 10 mg PO DAILYP PRN ALLERGIES 12/20/23 10/29/24 History losartan 50 mg tablet 50 mg PO BID BLOOD PRESSURE 12/20/23 10/29/24 History metoclopramide HCl 10 mg tablet 10 mg PO Q6H GERD 12/20/23 10/29/24 History metoprolol succinate 100 mg 100 mg PO DAILY BLOOD PRESSURE 12/20/23 10/29/24 History tablet,extended release 24 hr sertraline 50 mg tablet 50 mg PO DAILY MOOD 12/20/23 10/29/24 History tramadol 50 mg tablet 50 mg PO QIDP PRN Pain 12/20/23 10/29/24 History baclofen 5 mg tablet 5 mg PO TID #90 tabs 10/29/24 Rx pregabalin 25 mg capsule 25 mg PO HS #30 caps 10/29/24 Rx New Prescriptions to Start Prescriptions: Allergies Allergy/AdvReac Type Severity Reaction Status Date / Time acetaminophen AdvReac Verified 01/01/24 13:57 albuterol AdvReac Verified 01/01/24 13:57 fentanyl AdvReac Verified 01/01/24 13:57 hydrocodone AdvReac Verified 01/01/24 13:57 meperidine AdvReac Verified 01/01/24 13:57 morphine AdvReac Verified 01/01/24 13:57 oxycodone AdvReac Verified 01/01/24 13:57 Sulfa (Sulfonamide AdvReac Verified 01/01/24 13:57 Antibiotics) Assessment and Plan *Assessment and plan (1) Sacroiliitis: Status: Acute Category: Medical Code(s): M46.1 - Sacroiliitis, not elsewhere classified Plan Patient is experiencing worsening pain in and around her low back along the left side and goes into her left hip and buttocks. Patient did have limited range of motion of her lumbar spine and extreme point tenderness along her left SI and a positive left Christiano's, Hermelindo's, Gaenslen's, compression and distraction exam. I did discuss with the patient in future I do believe she would benefit from SI injection. Risk and benefits were discussed with the patient and she would like to proceed forward with this plan of care. Patient does have a history of chronic sacroiliitis with her last injections in December 2023 that did provide 100% relief and it worked well up until the last month or so. This will be a therapeutic injection with less than 1.5 mL of solution to be injected. Patient may be a future candidate of a SI fusion. We will follow-up following this injection. Patient has continued conservative therapy including oral medication, heat and ice, topicals, at home stretching exercise for longer than 12 weeks. Patient will be scheduled for left SI injection under fluoroscopy. I did also discuss with her after we ease down this pain that we can talk about future TMJ joint injections. Patient does state that primarily its on the right side. Patient has been instructed to contact the clinic with any concerns before the next appointment. Dr. Jurado has reviewed this note and agrees with this plan of care. This note was dictated using voice recognition software and make contain errors or omissions. All injections are used with Lidocaine, Bupivacaine and dexamethasone. Occasionally urine drug screen is needed to verify patient's compliance with our office pain contract. This is ordered based off specific treatments related to chronic pain with the potential to abuse certain medications.
[2024-12-01 14:34] VITALS: BP 135/72; PULSE 97; RESP 18; O2SAT 96; BMI 26.9
== END 2024-12-01 23:59 | disposition home or self-care (01) ==
LOC: SC.PAIN 13:27
PROVIDERS: Visit Provider Nurse Practitioner Family
DX: M46.1 Sacroiliitis, not elsewhere classified (principal)
CPT/HCPCS: 99212; G0463

== ENCOUNTER 2024-12-30 11:02 | Day surgery (SDC) | payer MEDICAID, SELFPAY ==
[2024-12-30 11:17] VITALS: BP 144/91; PULSE 88; RESP 18; O2SAT 95; BMI 26.9
[2024-12-30] MEDS: BUPIVACAINE 0.25% 10ML INJ 25 MG IJ (11:32)
[2024-12-30] MEDS: LIDOCAINE 1% 5ML PF VIAL 5 ML (11:32)
[2024-12-30 11:33] VITALS: BP 149/85; PULSE 82; RESP 18; O2SAT 96
[2024-12-30] MEDS: DEXAMETHASONE 10MG/ML 1ML VIAL 10 MG (11:33)
--- NOTE | 2024-12-30 11:36 | EXP.PAIN.PRO ---
Procedure Date: 12/30/24 Time: 11:20 Anesthesiologist:: Brandon Roblero CRNA Complications:: None Pre-procedure Diagnosis:: Left sacroiliitis Post-procedure Diagnosis:: Same Indications for Procedure:: Patient is a pleasant 49-year-old female who comes our clinic today for a left sacroiliac joint injection of cortisone local anesthetic. Patient describes left low lumbar back pain as constant, dull, aching. She reports difficulty transitioning from sitting to standing. Difficulty with ambulation due to the left posterior hip pain. She rates her pain 7/10. Procedure Details:: Procedure: Left sacroiliac injection under fluoroscopy Informed consent was obtained and the risk and benefits of the procedure were explained to the patient.~ The patient was taken to the procedure room and noninvasive monitors were placed including noninvasive blood pressure cuff and pulse oximeter.~ The patient was placed prone on the procedure table.~ The~ left hip was cleansed using Betadine as a cleansing solution.~ C-arm fluorosocpy was used to view the left SI joint.~ The skin and subcutaneous tissues were anesthetized using Lidocaine 1.5% and a 25-gauge needle.~ After this, a 22-gauge spinal needle was inserted under fluoroscopic guidance into the inferior aspect of the left SI joint.~ Omnipaque dye was injected and a good spread was seen throughout the joint.~ After this, approximately 5 mL of bupivacaine 0.25% and dexamethasone 10 mg was incrementally injected into the sacroiliac joint.~ The patient tolerated the procedure well with no complications.~ The patient was observed in the Pain Clinic for a period of 30-45 minutes, then discharged home neurologically intact.~ Plan and Disposition:: Patient was discharged without incident.
[2024-12-30 11:38] VITALS: BP 126/67; PULSE 84; RESP 18; O2SAT 99
[2024-12-30 11:42] VITALS: BP 149/85; PULSE 82; RESP 18; O2SAT 96
== END 2024-12-30 11:38 | disposition home or self-care (01) ==
PROVIDERS: Visit Provider Nurse Anesthetist, Certified Registered
DX: M46.1 Sacroiliitis, not elsewhere classified (principal); I10 Essential (primary) hypertension; K21.9 Gastro-esophageal reflux disease without esophagitis; M79.7 Fibromyalgia; Z88.6 Allergy status to analgesic agent; Z88.8 Allergy status to other drugs, medicaments and biological substances; Z88.5 Allergy status to narcotic agent; Z88.2 Allergy status to sulfonamides; Z79.899 Other long term (current) drug therapy
CPT/HCPCS: 64450; J0665; J1100; J2003

== ENCOUNTER 2025-02-27 14:26 | Day surgery (SDC) | payer MEDICAID, SELFPAY ==
[2025-02-27 14:27] VITALS: BP 139/92; PULSE 101; RESP 18; O2SAT 100; BMI 25.8
[2025-02-27] MEDS: LIDOCAINE 1% 5ML PF VIAL 5 ML (15:42)
[2025-02-27 15:43] VITALS: BP 141/84; PULSE 81; RESP 18; O2SAT 99
[2025-02-27] MEDS: BUPIVACAINE 0.25% 10ML INJ 25 MG IJ (15:43)
[2025-02-27] MEDS: DEXAMETHASONE 10MG/ML 1ML VIAL 10 MG (15:43)
[2025-02-27 15:48] VITALS: BP 141/84; PULSE 86; RESP 18; O2SAT 96
--- NOTE | 2025-02-27 15:49 | EXP.HP ---
History of Present Illness *Admission Date: 02/27/25 *Reason for visit:: Right temporomandibular joint dysfunction *History of present illness: This patient presents for right temporomandibular joint injection [facility] Disclaimer: The information contained in this section may have been updated after the patient was seen, as this information can be updated by other users. Medical History HTN (hypertension) GERD (gastroesophageal reflux disease) Fibromyalgia Surgical History History of knee replacement procedure of left knee Hx of cholecystectomy H/O: hysterectomy Hx of tonsillectomy Family History Other Cancer Hypertension Seizures Social History Smoking Status: Never smoker alcohol intake: never current occupational status: other Travel in the last 8 weeks?: None Have you lived/traveled outside [place] in past 30 days?: No Contact w/someone who lives/traveled outside US past 30 days?: No Exposure to someone with infectious disease in past 14 days?: No Do you have a fever (greater than 100.4 F or 38 C)?: No Have you tested positive for COVID-19?: No Exposed to someone with COVID-19 in past 14 days?: No Do you have a sore throat?: No Do you have a cough?: No Do you have any weakness?: No Do you have any diarrhea?: No Are you experiencing any unusual bleeding?: No Do you have any muscle aches/pain?: No Do you have any abdominal pain?: No Are you experiencing loss of taste or smell?: No Other Medical History Have you received the Flu Vaccine for this season: No Have you received the Pneumonia Vaccine: No Review of Systems Review of Systems Review of systems:: pertinent systems reviewed and negative unless documented below Meds Home Medications and Allergies Home Medications ?Medication ?Instructions ?Recorded ?Confirmed ?Type cyclobenzaprine 10 mg tablet 10 mg PO QIDP PRN . 12/20/23 02/27/25 History esomeprazole magnesium 40 mg 40 mg PO BID GERD 12/20/23 02/27/25 History capsule,delayed release famotidine 20 mg tablet 20 mg PO BID GERD 12/20/23 02/27/25 History hydrochlorothiazide 25 mg tablet 25 mg PO DAILYP PRN Fluid 12/20/23 02/27/25 History hydroxyzine HCl 25 mg tablet 25 mg PO HSP PRN Sleep 12/20/23 02/27/25 History loratadine 10 mg tablet 10 mg PO DAILYP PRN ALLERGIES 12/20/23 02/27/25 History losartan 50 mg tablet 50 mg PO BID BLOOD PRESSURE 12/20/23 02/27/25 History metoclopramide HCl 10 mg tablet 10 mg PO Q6H GERD 12/20/23 02/27/25 History metoprolol succinate 100 mg 100 mg PO DAILY BLOOD PRESSURE 12/20/23 02/27/25 History tablet,extended release 24 hr sertraline 50 mg tablet 50 mg PO DAILY MOOD 12/20/23 02/27/25 History tramadol 50 mg tablet 50 mg PO QIDP PRN Pain 12/20/23 02/27/25 History baclofen 5 mg tablet 5 mg PO TID #90 tabs 10/29/24 02/27/25 Rx pregabalin 25 mg capsule 25 mg PO HS #30 caps 02/19/25 02/27/25 Rx New Prescriptions to Start Prescriptions: Allergies Allergy/AdvReac Type Severity Reaction Status Date / Time acetaminophen AdvReac Verified 01/21/25 15:33 albuterol AdvReac Verified 01/21/25 15:33 fentanyl AdvReac Verified 01/21/25 15:33 hydrocodone AdvReac Verified 01/21/25 15:33 meperidine AdvReac Verified 01/21/25 15:33 morphine AdvReac Verified 01/21/25 15:33 oxycodone AdvReac Verified 01/21/25 15:33 Sulfa (Sulfonamide AdvReac Verified 01/21/25 15:33 Antibiotics) Exam Data for Last 24 hours Vital signs and Labs for Last 24 Hours: Pulse Resp BP Pulse Ox O2 Del Method 81 18 141/84 H 99 Room Air 02/27/25 15:43 02/27/25 15:43 02/27/25 15:43 02/27/25 15:43 02/27/25 15:43 I & O for Last 24 hours: Intake & Output 02/25/25 02/26/25 02/27/25 02/28/25 11:59 11:59 11:59 11:59 Weight 165 lb *Routine HEENT Exam Head: Present normocephalic Eye: Present EOMI ENT: Present mucous membranes moist *Routine Respiratory Exam Respiratory: Present CTA bilaterally *Routine Cardiovascular Exam Cardiovascular: Present RRR, Normal S1 and Normal S2 *Routine Abdominal Exam Abdominal: Present soft *Routine Rectal Exam Rectal:: deferred *Routine Genitalia Exam Genitalia:: deferred Assessment and Plan *Assessment and plan (1) TMJ dysfunction: Status: Acute Category: Medical Code(s): M26.609 - Unspecified temporomandibular joint disorder, unspecified side (2) Sacroiliitis: Status: Acute Category: Medical Code(s): M46.1 - Sacroiliitis, not elsewhere classified Plan Right temporomandibular joint injection
--- NOTE | 2025-02-27 15:50 | P.PCN_ITS ---
Procedure Date: 02/27/25 Time: 15:50 Anesthesiologist:: Alverto Jurado MD Complications:: None Pre-procedure Diagnosis:: Right temporomandibular joint dysfunction Post-procedure Diagnosis:: Same Indications for Procedure:: This patient is a pleasant 49-year-old white female who we have been treating for right temporomandibular joint dysfunction. She presents for right temporomandibular joint injection today Procedure Details:: Right temporomandibular joint injection Informed consent was obtained risk and benefits of procedure explained. Patient was taken to the procedure room. She was placed supine on the procedure table. The area in front of the right tragus was prepped using alcohol prep. A 25- gauge needle was inserted and advanced into the right temporomandibular joint. We injected 3 mL lidocaine 1% and dexamethasone 10 mg. Patient tolerated the procedure well with no complications. Plan and Disposition:: Will follow-up with this patient in 2 weeks. Will evaluate efficacy of this injection. Will reevaluate symptoms at that time. She is having some pain over the right SI joint. We will seek approval for a right SI joint injection in the future. Will also give her some prednisone 20 mg twice a day for 5 days to help with her pain symptoms.
[2025-02-27 15:54] VITALS: BP 136/90; PULSE 98; RESP 18; O2SAT 98
== END 2025-02-27 15:54 | disposition home or self-care (01) ==
PROVIDERS: Visit Provider Anesthesiology
DX: M26.601 Right temporomandibular joint disorder, unspecified (principal); M46.1 Sacroiliitis, not elsewhere classified; I10 Essential (primary) hypertension; M79.7 Fibromyalgia; Z88.2 Allergy status to sulfonamides; Z88.6 Allergy status to analgesic agent; Z88.8 Allergy status to other drugs, medicaments and biological substances; Z88.5 Allergy status to narcotic agent; Z79.899 Other long term (current) drug therapy; Z90.49 Acquired absence of other specified parts of digestive tract; Z90.710 Acquired absence of both cervix and uterus; Z96.652 Presence of left artificial knee joint
CPT/HCPCS: 20605; 21116; 99221; J0665; J1100; J2003

== ENCOUNTER 2025-04-28 11:03 | Day surgery (SDC) | payer MEDICAID, SELFPAY ==
[2025-04-28 11:07] VITALS: BP 127/68; PULSE 98; RESP 18; O2SAT 97; BMI 27.6
[2025-04-28] MEDS: BUPIVACAINE 0.25% 10ML INJ 25 MG IJ (11:41)
[2025-04-28 11:42] VITALS: BP 151/82; PULSE 90; RESP 18; O2SAT 97
[2025-04-28] MEDS: LIDOCAINE 1% 5ML PF VIAL 5 ML (11:42)
[2025-04-28] MEDS: DEXAMETHASONE 10MG/ML 1ML VIAL 10 MG (11:42)
[2025-04-28 11:43] VITALS: BP 151/82; PULSE 90; RESP 18; O2SAT 97
[2025-04-28 11:50] VITALS: BP 121/69; PULSE 82; RESP 16; O2SAT 97
--- NOTE | 2025-04-28 11:55 | P.PCN_ITS ---
Procedure Date: 04/28/25 Time: 11:45 Anesthesiologist:: Brandon Roblero CRNA Complications:: None Pre-procedure Diagnosis:: Left sacroiliitis. Left trochanteric bursitis. Post-procedure Diagnosis:: Same. Indications for Procedure:: Patient is a pleasant 50-year-old female who comes to clinic today for a left sacroiliac joint injection of cortisone local anesthetic. Also, left trochanteric bursa injection of cortisone and local anesthetic. Patient describes left low lumbar back pain as constant, dull, aching. Left posterior hip pain. Difficulty transitioning from sitting to standing. Difficulty with ambulation due to the left side low back, left posterior hip, left lateral hip pain. She rates her pain 7/10. Procedure Details:: Procedure: Left sacroiliac injection under fluoroscopy Informed consent was obtained and the risk and benefits of the procedure were explained to the patient.~ The patient was taken to the procedure room and noninvasive monitors were placed including noninvasive blood pressure cuff and pulse oximeter.~ The patient was placed prone on the procedure table.~ The~ left hip was cleansed using Betadine as a cleansing solution.~ C-arm fluorosocpy was used to view the left SI joint.~ The skin and subcutaneous tissues were anesthetized using Lidocaine 1.5% and a 25-gauge needle.~ After this, a 22-gauge spinal needle was inserted under fluoroscopic guidance into the inferior aspect of the left SI joint.~ Omnipaque dye was injected and a good spread was seen throughout the joint.~ After this, approximately 5 mL of bupivacaine 0.25% and dexamethasone 10 mg was incrementally injected into the sacroiliac joint.~ The patient tolerated the procedure well with no complications.~ The patient was observed in the Pain Clinic for a period of 30-45 minutes, then discharged home neurologically intact.~ Procedure:Left trochanteric bursa injection under fluoroscopy We then moved to the left trochanteric bursa.~ C-arm fluoroscopy was used to view the left greater trochanter.~ The skin and subcutaneous tissues overlying the left greater trochanter were anesthetized using lidocaine, 1.5% and a 25- gauge needle.~ After this, a 22-gauge spinal needle was inserted and advanced until it contacted the left greater trochanter.~ Dye was injected and good spread was seen throughout the left trochanteric bursa. After this, approximately 5 mL of bupivacaine, 0.25% and dexamethasone 10 mg was increment ally injected into the left trochanteric bursa.~ The patient tolerated the procedure well with no complications. Plan and Disposition:: Patient was discharged without incident.
== END 2025-04-28 11:55 | disposition home or self-care (01) ==
PROVIDERS: Visit Provider Nurse Anesthetist, Certified Registered
DX: M70.62 Trochanteric bursitis, left hip (principal); M46.1 Sacroiliitis, not elsewhere classified; K21.9 Gastro-esophageal reflux disease without esophagitis; I10 Essential (primary) hypertension
CPT/HCPCS: 27096; J0665; J1100; J2003